=== PATIENT | male | born 1980 | race Caucasian/White ===

== ENCOUNTER 2016-06-25 19:05 | Emergency (ER) | payer OTHER ==
[2016-06-25] MEDS ORDERED: Ondansetron 4 MG/2 ML SDV IVPUSH ONE (19:26)
[2016-06-25] MEDS ORDERED: HYDROmorphone 1 MG/ML Syringe IVPUSH ONE (19:26)
[2016-06-25] MEDS ORDERED: Sodium Chloride 0.9% 1,000 ML IV ONE (19:26)
[2016-06-25] MEDS ORDERED: Ketorolac 30 MG/ML SDV IVPUSH ONE (19:27)
[2016-06-25] MEDS ORDERED: Tamsulosin 0.4 MG Cap.ER PO ONE (21:17)
[2016-06-25] MEDS ORDERED: Take Home: Acetaminophen/HYDROcodone 325-10 MG, 5 Tab Pack PO ONE (21:18)
[2016-06-25 22:09] VITALS: BP 148/82
--- NOTE | 2016-06-26 08:20 | ER ---
Date of Service: 06/25/2016 SUBJECTIVE: Shai presents to the emergency room with complaints of left- sided abdominal pain. The patient has a history of recurrent kidney stones and states that this discomfort is similar to what he has experienced in the past. He states that he has been experiencing the discomfort intermittently for approximately the past 4 days. He states that his last CT scan was performed in April and he states that he did have kidney stones in both kidneys at that time. PAST MEDICAL HISTORY: 1. Kidney stones. 2. Hypertension. MEDICATIONS: Hydrochlorothiazide 25 mg daily. ALLERGIES: NKDA. REVIEW OF SYSTEMS: General: No fever or chills. No blood in the urine. Respiratory: No shortness of breath. Cardiac: Denies any substernal chest pain. Gastrointestinal: Positive for again a left-sided abdominal pain. PHYSICAL EXAMINATION: General: This is a 35-year-old male patient, in no acute distress. VITAL SIGNS: Initial vitals; blood pressure 160/88, initial respiratory rate was 16, pulse rate was 95, temperature is 36.6, and O2 saturations 97%. Skin: Warm, pink, and dry. HEENT: Head is normocephalic, atraumatic. Mouth, oral mucosa is moist. No erythema or exudate noted in the hypopharynx. Neck: Supple. No masses. There is no lymphadenopathy. Lungs: Clear to auscultation. Heart: Regular rate and rhythm. Normal S1, S2. No S3, S4, murmurs, clicks, rubs. Abdomen: Soft, nontender. There is no hepatosplenomegaly noted. There are no masses noted. He has no CVA tenderness. LABORATORY DATA: WBCs 10.9, hemoglobin is 15.8, and platelets are 195. Basic metabolic panel was obtained and was all noted to be within normal limits with the exception of a mildly elevated creatinine at 1.5. Specific gravity is 1.020, negative for protein, glucose, and ketones, he has does have a trace of occult blood, negative for nitrites, bilirubin, and leukocyte esterase, he did have a trace of occult blood, and no bacteria were seen. Had 0 to 5 rbc's, 0 to 5 wbc's on the micro. CT scan of the patient's abdomen and pelvis was obtained. It did have evidence of an approximately 4-mm stone in the left UVJ. There were also several small stones proximal to this in the kidney and in the ureter. EMERGENCY ROOM COURSE: IV access was established. The patient was given a liter of normal saline. He was given Dilaudid 1 mg IV, Toradol 30 mg IV, Zofran 4 mg IV, and Flomax 0.4 mg IV. He remained stable under my care in the emergency room. ASSESSMENT: Left-sided kidney stone. PLAN: Strain the urine. Collect any stones to bring back to the clinic for analysis. [place] 10/325 with instructions to take 1 every 4 to 6 hours as needed for pain. He was also given a course here in the emergency room as well. I would like him to follow up with his primary care provider. MWK: 06/26/2016 04:20:30 MODL: 06/26/2016 05:09:17 /[id number]
== END 2016-06-25 21:25 | disposition home or self-care (01) ==
LOC: VM.ED 19:05
DX: N13.2 Hydronephrosis with renal and ureteral calculous obstruction (principal); I10 Essential (primary) hypertension; Z87.442 Personal history of urinary calculi; Z79.899 Other long term (current) drug therapy
CPT/HCPCS: 36415; 74176; 80048; 81001; 85025; 96361; 96374; 96375; 99284; A9270; J1170; J1885; J2405; J7030

== ENCOUNTER 2016-10-06 22:15 | Emergency (ER) | payer OTHER ==
--- NOTE | 2016-10-06 22:50 | EDM.PDOC ---
ED HPI GENERAL MEDICAL PROBLEM - General Chief Complaint: General Stated Complaint: hypertension, feels like "crap" Time Seen by Provider: 10/06/16 22:21 Source of Information: Reports: Patient History Limitations: Reports: No Limitations - History of Present Illness INITIAL COMMENTS - FREE TEXT/NARRATIVE: Patient states he doesn't feel well, and hasn't for several weeks. Reports chronic history of bilateral kidney stones, is on HCTZ to help prevent their formation. Has high blood pressure, was seen by Dr. Nava at [facility] today. CBC, CMP, Sed Rate, TSH ordered and all labs were within normal values on examination of his mychart. He does have hypertension here. It has come down to 130's systolic over 90's diastolic. He complains of some neck pain as well. Onset: Gradual Duration: Intermittent Severity: Mild Improves with: Reports: None Worsens with: Reports: None Associated Symptoms: Reports: Other (diarrhea) - Related Data Allergies Allergy/AdvReac Type Severity Reaction Status Date / Time No Known Allergies Allergy Verified 06/25/16 19:23 Home Meds: Home Meds Hydrochlorothiazide 25 mg PO DAILY 04/16/15 [History] Past Medical History HEENT History: Reports: Sinusitis Cardiovascular History: Reports: Hypertension Genitourinary History: Reports: Hydronephrosis, Renal Calculus Social & Family History - Tobacco Use Smoking Status *Q: Never Smoker Second Hand Smoke Exposure: No - Alcohol Use Days Per Week of Alcohol Use: 0 - Recreational Drug Use Recreational Drug Use: No ED ROS GENERAL - Review of Systems Review Of Systems: See Below Constitutional: Reports: No Symptoms, Malaise HEENT: Reports: No Symptoms Respiratory: Reports: No Symptoms Cardiovascular: Reports: No Symptoms Endocrine: Reports: No Symptoms : Reports: No Symptoms Musculoskeletal: Reports: Neck Pain Skin: Reports: No Symptoms Neurological: Reports: No Symptoms Psychiatric: Reports: No Symptoms Hematologic/Lymphatic: Reports: No Symptoms Immunologic: Reports: No Symptoms ED EXAM, GENERAL - Physical Exam Exam: See Below Exam Limited By: No Limitations General Appearance: Alert, WD/WN, No Apparent Distress Eye Exam: Bilateral Eye: EOMI, PERRL Ears: Normal TMs Head: Atraumatic, Normocephalic Neck: Normal Inspection, Supple, Full Range of Motion, Lymphadenopathy (L), Lymphadenopathy (R), Tender Lateral Respiratory/Chest: No Respiratory Distress, Lungs Clear, Normal Breath Sounds, No Accessory Muscle Use, Chest Non-Tender Cardiovascular: Normal Peripheral Pulses, Regular Rate, Rhythm, No Edema Peripheral Pulses: 2+: Posterior Tibial (L), Posterior Tibial (R), Dorsalis Pedis (L), Dorsalis Pedis (R) GI/Abdominal: Normal Bowel Sounds, Soft, Non-Tender, No Organomegaly Back Exam: Normal Inspection, Full Range of Motion Extremities: Normal Inspection, Normal Range of Motion, Non-Tender, No Pedal Edema, Normal Capillary Refill Neurological: Alert, Oriented, CN II-XII Intact, Normal Cognition, Normal Gait, Normal Reflexes, No Motor/Sensory Deficits Psychiatric: Normal Affect, Normal Mood Skin Exam: Warm, Dry, Intact, Normal Color Course - Orders/Labs/Meds Orders: Active Orders 24 hr Category Date Time Status C DIFFICILE TOXIN BY PCR [MREF] Stat Lab 10/06/16 22:32 Uncollected OVA & PARASITES Routine Lab 10/06/16 22:32 Uncollected UA W/MICROSCOPIC [URIN] Stat Lab 10/06/16 22:32 Uncollected Isolation [COMM] Routine Oth 10/06/16 22:32 Ordered Departure - Departure Time of Disposition: 23:52 Disposition: Home, Self-Care 01 Condition: Good Clinical Impression: History of calculus of kidney, Hypertension - Discharge Information Instructions: Hypertension, [id number] Additional Instructions: You should follow up with Dr. Nava regarding your diarrhea and high blood pressure. A contrasted CT may show any adrenal irregularities that may also cause the hypertension. You should also rule out aldosteronism, kidney disease, etc. Continue taking your prescribed medications. Please call us with any questions or concerns. - Problem List & Annotations (1) History of calculus of kidney SNOMED Code(s): 646320993 Code(s): Z87.442 - PERSONAL HISTORY OF URINARY CALCULI Status: Acute Priority: Low Current Visit: Yes (2) Hypertension SNOMED Code(s): 61861488 Code(s): I10 - ESSENTIAL (PRIMARY) HYPERTENSION Status: Acute Priority: Low Current Visit: Yes Qualifiers: Hypertension type: unspecified secondary hypertension Qualified Code(s): I15.9 - Secondary hypertension, unspecified; I15 - Secondary hypertension - Problem List Review Problem List Initiated/Reviewed/Updated: Yes - My Orders Last 24 Hours: My Active Orders 10/06/16 22:32 C DIFFICILE TOXIN BY PCR [MREF] Stat OVA & PARASITES Routine UA W/MICROSCOPIC [URIN] Stat Isolation [COMM] Routine - Assessment/Plan Last 24 Hours: My Active Orders 10/06/16 22:32 C DIFFICILE TOXIN BY PCR [MREF] Stat OVA & PARASITES Routine UA W/MICROSCOPIC [URIN] Stat Isolation [COMM] Routine Assessment:: secondary htn Plan: You should follow up with Dr. Nava regarding your diarrhea and high blood pressure. A contrasted CT may show any adrenal irregularities that may also cause the hypertension. You should also rule out aldosteronism, kidney disease, etc. Continue taking your prescribed medications. Please call us with any questions or concerns.
[2016-10-06] MEDS ORDERED: Take Home: Naproxen 500 MG Tab, 4 Tab Pack PO ONE (23:51)
[2016-10-06] MEDS ORDERED: Take Home: Acetaminophen/HYDROcodone 325-10 MG, 5 Tab Pack PO ONE (23:51)
[2016-10-07 20:55] VITALS: BP 141/100
== END 2016-10-07 00:21 | disposition home or self-care (01) ==
LOC: VM.ED 22:15
DX: I10 Essential (primary) hypertension (principal); Z87.442 Personal history of urinary calculi
CPT/HCPCS: 81001; 99283; A9270-GY

== ENCOUNTER 2017-04-15 16:06 | Emergency (ER) | payer OTHER ==
[2017-04-15 16:17] VITALS: BP 143/103
[2017-04-15] MEDS ORDERED: HYDROmorphone 1 MG/ML Syringe IVPUSH ONE (16:51)
[2017-04-15] MEDS ORDERED: Sodium Chloride 0.9% 1,000 ML IV ONE (17:05)
--- NOTE | 2017-04-15 17:05 | EDM.PDOC ---
ED HPI GENERAL MEDICAL PROBLEM - General Chief Complaint: Genitourinary Problem Stated Complaint: kidney stone Time Seen by Provider: 04/15/17 16:18 Source of Information: Reports: Patient, Family - History of Present Illness INITIAL COMMENTS - FREE TEXT/NARRATIVE: The patient has had multiple calcium oxalate stones in the past. He also has had them extracted. She did come in today with a ureteric colic on the left. He has CVA tenderness. No pain about the groin. I did do a CAT scan and showed that the stone was about 4 mm and about mid ureter. He also has some hydronephrosis. He also has stones that will eventually come down on the left and the right. He has 2 stones on the left in the ureter. He also has a duplicating IVC and I did give him information about that. The patient was not aware of it. His urine did show some blood. I did give the patient 1 mg of Dilaudid IV and that did help with his pain otherwise his pain was 8-9 out of 10. 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 I did tell him that he does need to try to avoid the Brown pops as far as he calcium oxalate. He will continue to try to pass his stones on his own and he will share his information with his urologist when it's timely. He does not have a history of hypertension however he does have hypertension today. He does need to see someone regarding this in the future. Patient also has Flomax at home and I encouraged him to use that as well. Onset: Today Location: Reports: Other (CVA tenderness on the left) Quality: Reports: Same as Previous Episode, Sharp Severity: Severe Improves with: Reports: None Worsens with: Reports: None Associated Symptoms: Reports: Loss of Appetite Left Flank Pain Score (Numeric/FACES): 6 - Related Data Allergies Allergy/AdvReac Type Severity Reaction Status Date / Time No Known Allergies Allergy Verified 04/15/17 16:12 Home Meds: Home Meds Hydrocodone/Acetaminophen [[place] 5-325] 1 - 2 tab PO Q4H PRN #20 tablet [Rx] Past Medical History HEENT History: Reports: Sinusitis Cardiovascular History: Reports: Hypertension Genitourinary History: Reports: Hydronephrosis, Renal Calculus Social & Family History - Tobacco Use Smoking Status *Q: Never Smoker Used Tobacco, but Quit: Yes Month Tobacco Last Used: unsure Second Hand Smoke Exposure: No - Alcohol Use Days Per Week of Alcohol Use: 0 - Recreational Drug Use Recreational Drug Use: No ED ROS GENERAL - Review of Systems Review Of Systems: ROS reveals no pertinent complaints other than HPI. ED EXAM, RENAL/ - Physical Exam Exam: See Below Exam Limited By: No Limitations General Appearance: Alert, Moderate Distress, Severe Distress Respiratory/Chest: No Respiratory Distress, Lungs Clear, Normal Breath Sounds, No Accessory Muscle Use, Chest Non-Tender Cardiovascular: Normal Peripheral Pulses, Regular Rate, Rhythm, No Edema, No Gallop, No JVD, No Murmur, No Rub GI/Abdominal: Other (CVA tenderness on the left.) Neurological: Alert, Oriented Course - Vital Signs Last Recorded V/S: Last Vital Signs Temp 36.6 C 04/15/17 16:14 Pulse 77 04/15/17 16:14 Resp 16 04/15/17 16:14 BP 143/103 H 04/15/17 16:14 Pulse Ox 97 04/15/17 16:14 - Orders/Labs/Meds Orders: Active Orders 24 hr Category Date Time Status Abdomen Pelvis wo Cont [CT] Stat Exams 04/15/17 16:33 Taken Labs: Laboratory Tests 04/15/17 Range/Units 16:23 Urine Color Yellow (YELLOW) Urine Appearance Clear (CLEAR) Urine pH 5.5 (5.0-8.0) Ur Specific [place] 1.015 Urine Protein Negative (NEGATIVE) mg/dL Urine Glucose (UA) Negative (NEGATIVE) mg/dL Urine Ketones Negative (NEGATIVE) mg/dL Urine Occult Blood Small H (NEGATIVE) Urine Nitrite Negative (NEGATIVE) Urine Bilirubin Negative (NEGATIVE) Urine Urobilinogen 0.2 (0.2) EU/dL Ur Leukocyte Esterase Negative (NEGATIVE) Meds: Medications Discontinued Medications Generic Name Dose Route Start Last Admin Trade Name Freq PRN Reason Stop Dose Admin Hydrocodone Bitart/Acetaminophen 1 packet 04/15/17 17:28 04/15/17 17:45 Take Home: Acetam/Hydrocodon 325-5 Mg, 5 Pack PO 04/15/17 17:29 1 packet ONETIME ONE Administration Hydromorphone HCl 1 mg 04/15/17 16:51 04/15/17 17:07 Dilaudid IVPUSH 04/15/17 16:52 1 mg ONETIME ONE Administration Sodium Chloride 1,000 mls @ 999 mls/hr 04/15/17 17:05 04/15/17 17:07 Normal Saline IV 04/15/17 18:05 999 mls/hr .BOLUS ONE Administration Departure - Departure Time of Disposition: 17:24 Disposition: Home, Self-Care 01 Condition: Good Clinical Impression: Hydronephrosis, Ureteric colic, History of calculus of kidney - Discharge Information Prescriptions: Hydrocodone/Acetaminophen [[place] 5-325] 1 - 2 tab PO Q4H PRN #20 tablet PRN Reason: Pain Instructions: Acetaminophen; Hydrocodone tablets or capsules, Kidney Stones, [id number] Referrals: Familia Bourgeois MD [ED Physician] - PCP,None [Primary Care Provider] - Forms: ED Department Discharge Additional Instructions: Avoid brown pops. Drink plenty of water. Strain urine for stones if desired. CT scan done. - My Orders Last 24 Hours: My Active Orders 04/15/17 16:33 Abdomen Pelvis wo Cont [CT] Stat - Assessment/Plan Last 24 Hours: My Active Orders 04/15/17 16:33 Abdomen Pelvis wo Cont [CT] Stat
[2017-04-15] MEDS ORDERED: Take Home: Acetaminophen/HYDROcodone 325-5 MG, 5 Tab Pack PO ONE (17:28)
== END 2017-04-15 17:52 | disposition home or self-care (01) ==
LOC: VM.ED 16:06
DX: N13.2 Hydronephrosis with renal and ureteral calculous obstruction (principal); I10 Essential (primary) hypertension; Z87.891 Personal history of nicotine dependence
CPT/HCPCS: 74176; 81003; 96361; 96374; 99284; A9270; J1170; J7030

== ENCOUNTER 2017-04-16 03:47 | Emergency (ER) | payer OTHER ==
[2017-04-16 03:53] VITALS: BP 153/74
[2017-04-16] MEDS ORDERED: Take Home: Acetaminophen/oxyCODONE 325-5 MG, 5 Tab Pack PO ONE (04:04)
[2017-04-16] MEDS ORDERED: Take Home: Ondansetron 4 MG Tab.DIS, 2 Tab Pack PO ONE (04:04)
--- NOTE | 2017-04-16 04:06 | EDM.PDOC ---
ED HPI GENERAL MEDICAL PROBLEM - General Chief Complaint: Genitourinary Problem Stated Complaint: left sided flank pain Time Seen by Provider: 04/16/17 03:55 Source of Information: Reports: Patient History Limitations: Reports: No Limitations - History of Present Illness INITIAL COMMENTS - FREE TEXT/NARRATIVE: Prior to the patient earlier this evening. The patient states that he had a difficult time sleeping. He has not been eating very much he did take the hydrocodone that he did throw it up. He does have small children at home. He does not want to wake his . I will have him try Percocet and also Zofran and he can decide which combination he prefers. He will keep one of the prescriptions and he will shredded the other. I will have any reason to believe that he would not be compliant. At any rate the patient will be contacting his urologist in the morning. He states that he has not had much urine. He did take 1 Flomax and I did encourage him to take another. He does have 2 stones coming down the ureter and they are mildly approaching the uric vesicle junction. He does appear to be more uncomfortable. I did offer him a shot of Dilaudid and IV fluids and then he could have his pick him up in a couple of hours when she wakes up but he did decline and ultimately decided that he would take the medication and go home and try a different regiment. I agreed to the same. He still has the left CVA tenderness none on the right no fever or chills and he is in quite a bit of discomfort that he is constantly moving. Onset: Today Left Flank Pain Score (Numeric/FACES): 6 - Related Data Allergies Allergy/AdvReac Type Severity Reaction Status Date / Time No Known Allergies Allergy Verified 04/16/17 03:53 Home Meds: Home Meds Hydrocodone/Acetaminophen [[place] 5-325] 1 - 2 tab PO Q4H PRN #20 tablet [Rx] Azithromycin [IJP: Azithromycin] 250 mg PO DAILY 04/16/17 [History] Past Medical History HEENT History: Reports: Sinusitis Cardiovascular History: Reports: Hypertension Genitourinary History: Reports: Hydronephrosis, Renal Calculus Social & Family History - Tobacco Use Smoking Status *Q: Never Smoker Used Tobacco, but Quit: Yes Month Tobacco Last Used: unsure Second Hand Smoke Exposure: No - Alcohol Use Days Per Week of Alcohol Use: 0 - Recreational Drug Use Recreational Drug Use: No ED ROS GENERAL - Review of Systems Review Of Systems: ROS reveals no pertinent complaints other than HPI. ED EXAM, RENAL/ - Physical Exam Exam: See Below Exam Limited By: No Limitations General Appearance: Moderate Distress, Severe Distress GI/Abdominal: Other (I did examine him earlier today. He still has a left CVA tenderness and he is difficult to sit down and stay in one position. No other pain reported.) Course - Vital Signs Last Recorded V/S: Last Vital Signs Temp 35.9 C 04/16/17 03:49 Pulse 74 04/16/17 03:49 Resp 20 04/16/17 03:49 BP 153/74 H 04/16/17 03:49 Pulse Ox 95 04/16/17 03:49 - Orders/Labs/Meds Meds: Medications Discontinued Medications Generic Name Dose Route Start Last Admin Trade Name Gokulq PRN Reason Stop Dose Admin Ondansetron HCl 2 packet 04/16/17 04:04 04/16/17 04:08 Take Home: Ondansetron Odt 4 Mg, 2 Tab Pack PO 04/16/17 04:05 2 packet ONETIME ONE Administration Oxycodone/Acetaminophen 1 packet 04/16/17 04:04 04/16/17 04:08 Take Home: Acetamin/Oxycodon 325-5 Mg, 5 Pack PO 04/16/17 04:05 1 packet ONETIME ONE Administration Departure - Departure Time of Disposition: 04:15 Disposition: Home, Self-Care 01 Condition: Good Clinical Impression: History of calculus of kidney, Ureteric colic - Discharge Information Referrals: PCP,Unobtain [Primary Care Provider] - Forms: ED Department Discharge
== END 2017-04-16 04:15 | disposition home or self-care (01) ==
LOC: VM.ED 03:47
DX: N23 Unspecified renal colic (principal); I10 Essential (primary) hypertension; Z87.442 Personal history of urinary calculi
CPT/HCPCS: 99283; A9270

== ENCOUNTER 2017-08-19 17:15 | Emergency (ER) | payer OTHER ==
[2017-08-19] MEDS ORDERED: Sodium Chloride 0.9% 10 ML Syringe FLUSH PRN (17:20)
[2017-08-19] MEDS: Lactated Ringers 1,000 ML IV ONE (17:30)
[2017-08-19] MEDS: Ketorolac 15 MG/ML SDV IVPUSH ONE ×2 (17:33→17:43)
[2017-08-19] MEDS: Ondansetron 4 MG/2 ML SDV IVPUSH ONE (17:36)
--- NOTE | 2017-08-19 17:37 | EDM.PDOC ---
ED HPI GENERAL MEDICAL PROBLEM - General Chief Complaint: Flank Pain Time Seen by Provider: 08/19/17 17:20 Source of Information: Reports: Patient History Limitations: Reports: No Limitations - History of Present Illness INITIAL COMMENTS - FREE TEXT/NARRATIVE: Patient comes in to the emergency department today after having a 2 day history lower back pain. Patient has a long history of kidney stones. He states he's had greater than 100 kidney stones that he has passed in his lifetime. He is currently a patient of nephrology and urology is on hydrochlorothiazide for reduction and stones. He has also had multiple procedures in the past to help remove the stones. He states he gets them a few times a year and comes into the emergency department for pain control. He normally can pass them on his own. He comes in today hoping to get pain relief from the stones he feels he has. Patient does not normally drink a lot in the day he is an active joy. He is not sure if he has any urgency, hesitancy, or any blood in his urine. Denies any fever, chills, nausea, or vomiting. Can not think of any factors that make it worse or better. Onset: Sudden Left Flank Pain Score (Numeric/FACES): 5 - Related Data Allergies Allergy/AdvReac Type Severity Reaction Status Date / Time No Known Allergies Allergy Verified 08/19/17 17:26 Home Meds: Home Meds Hydrocodone/Acetaminophen [[place] 5-325] 1 - 2 tab PO Q4H PRN #20 tablet [Rx] Azithromycin [IJP: Azithromycin] 250 mg PO DAILY 04/16/17 [History] Ciprofloxacin HCl [Cipro] 500 mg PO BID 7 Days #14 tablet 08/19/17 [Rx] Hydrochlorothiazide 25 mg PO DAILY 08/19/17 [History] Hydrocodone/Acetaminophen [Hydrocodon-Acetaminophen 5-325] 1 each PO QID PRN 2 Days #10 tablet 08/19/17 [Rx] Past Medical History HEENT History: Reports: Sinusitis Cardiovascular History: Reports: Hypertension Genitourinary History: Reports: Hydronephrosis, Renal Calculus Social & Family History - Tobacco Use Smoking Status *Q: Never Smoker - Recreational Drug Use Recreational Drug Use: No ED ROS GENERAL - Review of Systems Review Of Systems: See Below Constitutional: Reports: No Symptoms HEENT: Reports: No Symptoms Respiratory: Reports: No Symptoms Cardiovascular: Reports: No Symptoms GI/Abdominal: Reports: No Symptoms : Reports: No Symptoms Musculoskeletal: Reports: No Symptoms Skin: Reports: No Symptoms Neurological: Reports: No Symptoms Psychiatric: Reports: No Symptoms Hematologic/Lymphatic: Reports: No Symptoms Immunologic: Reports: No Symptoms ED EXAM, RENAL/ - Physical Exam Exam: See Below Exam Limited By: No Limitations General Appearance: Alert, WD/WN, No Apparent Distress Neck: Normal Inspection, Supple, Non-Tender, Full Range of Motion Respiratory/Chest: No Respiratory Distress, Lungs Clear, No Accessory Muscle Use Cardiovascular: Normal Peripheral Pulses, Regular Rate, Rhythm GI/Abdominal: Normal Bowel Sounds, Soft, Non-Tender Extremities: Normal Inspection, Normal Range of Motion, Non-Tender, Normal Capillary Refill Neurological: Alert, Oriented Skin Exam: Warm, Dry, Intact, Normal Color Course - Vital Signs Last Recorded V/S: Last Vital Signs Temp 36.3 C 08/19/17 17:20 Pulse 73 08/19/17 17:20 Resp 18 08/19/17 17:20 BP 151/101 H 08/19/17 17:20 Pulse Ox 98 08/19/17 17:20 - Orders/Labs/Meds Orders: Active Orders 24 hr Category Date Time Status Abdomen Pelvis wo Cont [CT] Stat Exams 08/19/17 17:20 Ordered UA W/MICROSCOPIC [URIN] Stat Lab 08/19/17 17:36 Ordered Sodium Chloride 0.9% [Saline Flush] Med 08/19/17 17:20 Active 10 ml FLUSH ASDIRECTED PRN Peripheral IV Insertion Adult [OM.PC] Stat Oth 08/19/17 17:20 Ordered Medication Orders Sodium Chloride (Saline Flush) 10 ml FLUSH ASDIRECTED PRN PRN Reason: Keep Vein Open Labs: Laboratory Tests 08/19/17 08/19/17 08/19/17 Range/Units 17:36 17:47 17:47 WBC 6.8 (4.0-10.0) x10^3/uL RBC 4.98 (4.5-6.0) x10^6/uL Hgb 16.6 (14.0-18.0) g/dL Hct 46.7 (40.0-52.0) % MCV 93.8 H (78.0-93.0) fL MCH 33.3 H (26.0-32.0) pg MCHC 35.5 (32.0-36.0) g/dL RDW Coeff of Ever 13.0 (10.0-15.0) % Plt Count 187 (130-400) x10^3/uL Neut % (Auto) 59.0 (50.0-80.0) % Lymph % (Auto) 29.3 (25.0-50.0) % [place] % (Auto) 7.6 (2.0-11.0) % Eos % (Auto) 3.5 (0.0-4.0) % Baso % (Auto) 0.6 (0.2-1.2) % Sodium 138 (136-145) mmol/L Potassium 4.0 (3.5-5.1) mmol/L Chloride 102 (98-107) mmol/L Carbon Dioxide 27 (21-32) mmol/L Anion Gap 13.0 (10-20) mmol/L BUN 16 (7-18) mg/dL Creatinine 1.1 (0.70-1.30) mg/dL Est Cr Clr Drug Dosing TNP Estimated GFR (MDRD) > 60 Glucose 89 (74-106) mg/dL Calcium 9.0 (8.5-10.1) mg/dL Corrected Calcium 8.68 (8.5-10.1) mg/dL Total Bilirubin 0.6 (0.2-1.0) mg/dL AST 36 (15-37) U/L ALT 74 H (16-63) U/L Alkaline Phosphatase 48 (46-116) U/L Total Protein 7.9 (6.4-8.2) g/dL Albumin 4.4 (3.4-5.0) g/dL Globulin 3.5 Albumin/Globulin Ratio 1.26 Urine Color Yellow (YELLOW) Urine Appearance Clear (CLEAR) Urine pH 6.0 (5.0-8.0) Ur Specific [place] 1.015 Urine Protein Trace H (NEGATIVE) mg/dL Urine Glucose (UA) Negative (NEGATIVE) mg/dL Urine Ketones Negative (NEGATIVE) mg/dL Urine Occult Blood Moderate H (NEGATIVE) Urine Nitrite Negative (NEGATIVE) Urine Bilirubin Negative (NEGATIVE) Urine Urobilinogen 0.2 (0.2) EU/dL Ur Leukocyte Esterase Negative (NEGATIVE) Urine RBC 10-20 H (NOT SEEN) /HPF Urine WBC 0-5 (NOT SEEN) /HPF Ur Squamous Epith Cells Rare (NEGATIVE) /HPF Urine Bacteria Few H (NEGATIVE) /HPF Urine Mucus Few H (NEGATIVE) /LPF Meds: Medications Generic Name Dose Route Start Last Admin Trade Name Gokulq PRN Reason Stop Dose Admin Sodium Chloride 10 ml 08/19/17 17:20 Saline Flush FLUSH ASDIRECTED PRN Keep Vein Open Discontinued Medications Generic Name Dose Route Start Last Admin Trade Name Perico PRN Reason Stop Dose Admin Hydrocodone Bitart/Acetaminophen 1 packet 08/19/17 18:32 Take Home: Acetam/Hydrocodon 325-5 Mg, 5 Pack PO 08/19/17 18:33 ONETIME ONE Ciprofloxacin 500 mg 08/19/17 18:38 Ciprofloxacin Hcl PO 08/19/17 18:39 ONETIME ONE Lactated Ringer's 1,000 mls @ 1,000 mls/hr 08/19/17 17:35 08/19/17 17:30 Ringers, Lactated IV 08/19/17 18:34 1,000 mls/hr .BOLUS ONE Administration Ketorolac Tromethamine 15 mg 08/19/17 17:20 08/19/17 17:33 Toradol IVPUSH 08/19/17 17:21 15 mg ONETIME ONE Administration Ketorolac Tromethamine 15 mg 08/19/17 17:37 08/19/17 17:43 Toradol IVPUSH 08/19/17 17:38 15 mg ONETIME ONE Administration Ondansetron HCl 4 mg 08/19/17 17:20 08/19/17 17:36 Zofran IVPUSH 08/19/17 17:21 4 mg ONETIME ONE Administration - Re-Assessments/Exams Free Text/Narrative Re-Assessment/Exam: 08/19/17 18:52 pain is reduced. Pt is resting currently. Would like to be discharged. VSS. Departure - Departure Time of Disposition: 19:55 Disposition: Home, Self-Care 01 Condition: Good Clinical Impression: UTI, Urinary tract infectious disease, Hydroureteronephrosis, Kidney stone - Discharge Information Prescriptions: Ciprofloxacin HCl [Cipro] 500 mg PO BID 7 Days #14 tablet Hydrocodone/Acetaminophen [Hydrocodon-Acetaminophen 5-325] 1 each PO QID PRN 2 Days #10 tablet PRN Reason: Pain (Severe 7-10) Instructions: Hydrocodone; Ibuprofen tablets, Kidney Stones, [id number], Ciprofloxacin tablets Referrals: Familia Bourgeois MD [Primary Care Provider] - Forms: ED Department Discharge Additional Instructions: 1. rest 2. increase water intake to at least 2-3 liters per day 3. Decrease foot in fat protein and sodium if possible 4. Excess intake of oxalate-rich products should be avoided to prevent oxalate load (fruits, wheat, and bran) 5. Follow up with specialist if not feeling better within 2 weeks 6. Return if pain progress or fevers elevate and do not dissipate with ibuprofen and Tylenol - My Orders Last 24 Hours: My Active Orders 08/19/17 17:20 Abdomen Pelvis wo Cont [CT] Stat Sodium Chloride 0.9% [Saline Flush] 10 ml FLUSH ASDIRECTED PRN Peripheral IV Insertion Adult [OM.PC] Stat 08/19/17 17:36 UA W/MICROSCOPIC [URIN] Stat - Assessment/Plan Last 24 Hours: My Active Orders 08/19/17 17:20 Abdomen Pelvis wo Cont [CT] Stat Sodium Chloride 0.9% [Saline Flush] 10 ml FLUSH ASDIRECTED PRN Peripheral IV Insertion Adult [OM.PC] Stat 08/19/17 17:36 UA W/MICROSCOPIC [URIN] Stat Assessment:: 1. flank pain Plan: 1. IV hydration 2. Toradol given for pain 3. Antiemetic to prevent nausea 4. CT of abdomen completed 5. UA/UC completed in ER 6. Pt given first dose of Ciprofloxacin. Pt has a significant history with urology and kidney stones will treat him as a complicated history and give him the full course 7 day treatment unless sensitivity comes back needing to switch medications 7. He should also sent home with pain medications to help for the next 48 hours 8. Advised to use Tylenol and ibuprofen as much as possible and reserved the controlled substances only for severe pain 9. Education given to the patient regarding diet and exercise 10. She also given information regarding ways to help reduce his risk of kidney stones 11. She is instructed to follow up with his primary care provider if symptoms continue or do not resolve
[2017-08-19 18:14] LABS: CHLORIDE,CL 102 mmol/L (98-107); SODIUM,NA 138 mmol/L (136-145)
[2017-08-19] MEDS: Take Home: Acetaminophen/HYDROcodone 325-5 MG, 5 Tab Pack PO ONE (18:52)
[2017-08-19] MEDS: Ciprofloxacin 500 MG Tab PO ONE (18:52)
[2017-08-19 19:03] VITALS: BP 148/99
== END 2017-08-19 18:57 | disposition home or self-care (01) ==
LOC: VM.ED 17:15
DX: N39.0 Urinary tract infection, site not specified (principal); N13.2 Hydronephrosis with renal and ureteral calculous obstruction; I10 Essential (primary) hypertension; Z87.442 Personal history of urinary calculi; Z79.899 Other long term (current) drug therapy
CPT/HCPCS: 36415; 74176; 80053; 81001; 85025; 96361; 96374; 96375; 99284; A9270-GY; J1885; J2405; J7120

== ENCOUNTER 2017-10-13 15:03 | Emergency (ER) | payer OTHER ==
[2017-10-13 15:31] VITALS: BP 142/94
--- NOTE | 2017-10-19 08:09 | EDM.PDOC ---
ED HPI GENERAL MEDICAL PROBLEM - General Chief Complaint: ENT Problem Stated Complaint: BLOODY NOSE Time Seen by Provider: 10/13/17 15:15 Source of Information: Reports: Patient History Limitations: Reports: No Limitations - History of Present Illness INITIAL COMMENTS - FREE TEXT/NARRATIVE: Pt. states that he sustained an injury to his R nare. He states that he was using a lens grinder rough and a small piece of metal was thrown into his R nare which has since come out. He complains of bleeding from his R nare. Denies any other trauma from the accident. He states that the area was bleeding briskly for several minutes. - Related Data Allergies Allergy/AdvReac Type Severity Reaction Status Date / Time No Known Allergies Allergy Verified 08/19/17 17:26 Home Meds: Home Meds hydroCHLOROthiazide [Hydrochlorothiazide] 25 mg DAILY 10/13/17 [History] Past Medical History HEENT History: Reports: Sinusitis Cardiovascular History: Reports: Hypertension Genitourinary History: Reports: Hydronephrosis, Renal Calculus Social & Family History - Tobacco Use Smoking Status *Q: Never Smoker - Recreational Drug Use Recreational Drug Use: No ED ROS ENT - Review of Systems Review Of Systems: See Below Constitutional: Reports: No Symptoms HEENT: Reports: Nosebleed Respiratory: Reports: No Symptoms Cardiovascular: Reports: No Symptoms GI/Abdominal: Reports: No Symptoms ED EXAM, ENT - Physical Exam Exam: See Below General Appearance: Alert, WD/WN, No Apparent Distress Nose: Dried Blood, Other (very small abrasion/puncture to the medial R nare) Course - Vital Signs Last Recorded V/S: Last Vital Signs Temp 36.4 C 10/13/17 15:03 Pulse 80 10/13/17 15:03 Resp 16 10/13/17 15:03 BP 142/94 H 10/13/17 15:03 Pulse Ox Departure - Departure Time of Disposition: 15:45 Disposition: Home, Self-Care 01 Clinical Impression: Nosebleed - Discharge Information Referrals: Familia Bourgeois MD [Primary Care Provider] - Forms: ED Department Discharge Additional Instructions: If bleeding redevelops, pinch nose for 30 min. and return to ER if it doesn't stop.
== END 2017-10-13 15:25 | disposition home or self-care (01) ==
LOC: VM.ED 15:03
DX: S01.23XA Puncture wound without foreign body of nose, initial encounter (principal); I10 Essential (primary) hypertension; W22.8XXA Striking against or struck by other objects, initial encounter
CPT/HCPCS: 99283

== ENCOUNTER 2017-11-29 16:45 | Emergency (ER) | payer OTHER ==
[2017-11-29] MEDS ORDERED: Sodium Chloride 0.9% 10 ML Syringe FLUSH PRN (17:07)
[2017-11-29] MEDS: Sodium Chloride 0.9% 1,000 ML IV ONE (17:20)
[2017-11-29] MEDS: Morphine 2 MG/ML Syringe IVPUSH ONE (17:21)
[2017-11-29] MEDS: Ondansetron 4 MG/2 ML SDV IVPUSH ONE (17:25)
[2017-11-29 17:32] LABS: CHLORIDE,CL 102 mmol/L (98-107); SODIUM,NA 140 mmol/L (136-145)
--- NOTE | 2017-11-29 17:32 | EDM.PDOC ---
ED HPI GENERAL MEDICAL PROBLEM - General Chief Complaint: Flank Pain Stated Complaint: Left Flank Pain Time Seen by Provider: 11/29/17 16:47 Source of Information: Reports: Patient, Old Records, RN, RN Notes Reviewed History Limitations: Reports: No Limitations - History of Present Illness INITIAL COMMENTS - FREE TEXT/NARRATIVE: Patient comes in to the emergency department today after having a 1 day history lower back/left flank pain. Patient has a long history of kidney stones. He states he's had greater than 100 kidney stones that he has passed in his lifetime. He is currently a patient of nephrology and urology is on hydrochlorothiazide for reduction and stones. He has also had multiple procedures in the past to help remove the stones. He states he gets them a few times a year and comes into the emergency department for pain control. He normally can pass them on his own. He comes in today hoping to get pain relief from the stones he feels he has. Patient does not normally drink a lot in the day he is an active joy. He is not sure if he has any urgency, hesitancy, or any blood in his urine. Denies any fever, chills, nausea, or vomiting. Can not think of any factors that make it worse or better. 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: Other (see below) (None) - Related Data Allergies Allergy/AdvReac Type Severity Reaction Status Date / Time No Known Allergies Allergy Verified 08/19/17 17:26 Home Meds: Home Meds hydroCHLOROthiazide [Hydrochlorothiazide] 25 mg DAILY 10/13/17 [History] Tamsulosin HCl [Flomax] 0.4 mg PO DAILY 7 Days #7 cap.er.24h 11/29/17 [Rx] Past Medical History HEENT History: Reports: Sinusitis Cardiovascular History: Reports: Hypertension Genitourinary History: Reports: Hydronephrosis, Renal Calculus ED ROS GENERAL - Review of Systems Review Of Systems: See Below Constitutional: Denies: Fever, Chills, Weakness Respiratory: Denies: Shortness of Breath, Cough Cardiovascular: Denies: Chest Pain, Palpitations GI/Abdominal: Reports: Nausea. Denies: Abdominal Pain, Diarrhea, Vomiting : Reports: Flank Pain (Left) Skin: Reports: No Symptoms Neurological: Reports: No Symptoms ED EXAM, RENAL/ - Physical Exam Exam: See Below Exam Limited By: No Limitations General Appearance: Alert, Mild Distress (2/2 pain) Respiratory/Chest: No Respiratory Distress, Lungs Clear, Normal Breath Sounds Cardiovascular: Normal Peripheral Pulses, Regular Rate, Rhythm GI/Abdominal: Normal Bowel Sounds, Soft, Non-Tender (Male) Exam: Deferred Back Exam: CVA Tenderness (L), Muscle Spasm Neurological: Alert, Oriented Skin Exam: Warm, Dry, Intact, Normal Color Course - Orders/Labs/Meds Orders: Active Orders 24 hr Category Date Time Status Abdomen Pelvis wo Cont [CT] Stat Exams 11/29/17 16:47 Taken UA W/MICROSCOPIC [URIN] Stat Lab 11/29/17 17:00 Ordered Sodium Chloride 0.9% [Saline Flush] Med 11/29/17 17:07 Active 10 ml FLUSH ASDIRECTED PRN Peripheral IV Insertion Adult [OM.PC] Routine Oth 11/29/17 17:07 Ordered Medication Orders Sodium Chloride (Saline Flush) 10 ml FLUSH ASDIRECTED PRN PRN Reason: Keep Vein Open Labs: Laboratory Tests 11/29/17 11/29/17 11/29/17 Range/Units 17:00 17:06 17:06 WBC 7.3 (4.0-10.0) x10^3/uL RBC 5.02 (4.5-6.0) x10^6/uL Hgb 17.0 (14.0-18.0) g/dL Hct 47.9 (40.0-52.0) % MCV 95.4 H (78.0-93.0) fL MCH 33.9 H (26.0-32.0) pg MCHC 35.5 (32.0-36.0) g/dL RDW Coeff of Ever 13.0 (10.0-15.0) % Plt Count 216 (130-400) x10^3/uL Neut % (Auto) 65.0 (50.0-80.0) % Lymph % (Auto) 27.0 (25.0-50.0) % [place] % (Auto) 6.6 (2.0-11.0) % Eos % (Auto) 1.1 (0.0-4.0) % Baso % (Auto) 0.3 (0.2-1.2) % Sodium 140 (136-145) mmol/L Potassium 3.8 (3.5-5.1) mmol/L Chloride 102 (98-107) mmol/L Carbon Dioxide 29 (21-32) mmol/L Anion Gap 12.8 (10-20) mmol/L BUN 20 H (7-18) mg/dL Creatinine 1.3 (0.70-1.30) mg/dL Est Cr Clr Drug Dosing TNP Estimated GFR (MDRD) > 60 Glucose 92 (74-106) mg/dL Calcium 9.5 (8.5-10.1) mg/dL Corrected Calcium 9.26 (8.5-10.1) mg/dL Total Bilirubin 0.6 (0.2-1.0) mg/dL AST 19 (15-37) U/L ALT 47 (16-63) U/L Alkaline Phosphatase 54 (46-116) U/L Total Protein 8.1 (6.4-8.2) g/dL Albumin 4.3 (3.4-5.0) g/dL Globulin 3.8 Albumin/Globulin Ratio 1.13 Urine Color Yellow (YELLOW) Urine Appearance Slightly cloudy H (CLEAR) Urine pH 6.0 (5.0-8.0) Ur Specific [place] 1.025 Urine Protein 30 H (NEGATIVE) mg/dL Urine Glucose (UA) Negative (NEGATIVE) mg/dL Urine Ketones Negative (NEGATIVE) mg/dL Urine Occult Blood Moderate H (NEGATIVE) Urine Nitrite Negative (NEGATIVE) Urine Bilirubin Negative (NEGATIVE) Urine Urobilinogen 0.2 (0.2) EU/dL Ur Leukocyte Esterase Negative (NEGATIVE) Urine RBC 30-40 H (NOT SEEN) /HPF Urine WBC 0-5 (NOT SEEN) /HPF Ur Squamous Epith Cells Rare (NEGATIVE) /HPF Ur Renal Epithelial Cell Rare H (NEGATIVE) /HPF Urine Bacteria Not seen (NEGATIVE) /HPF Hyaline Casts Rare H (NEGATIVE) /HPF Urine Mucus Not seen (NEGATIVE) /LPF Meds: Medications Generic Name Dose Route Start Last Admin Trade Name Freq PRN Reason Stop Dose Admin Sodium Chloride 10 ml 11/29/17 17:07 Saline Flush FLUSH ASDIRECTED PRN Keep Vein Open Discontinued Medications Generic Name Dose Route Start Last Admin Trade Name Perico PRN Reason Stop Dose Admin Hydromorphone HCl 2 mg 11/29/17 18:10 Dilaudid IVPUSH 11/29/17 18:11 ONETIME ONE Sodium Chloride 1,000 mls @ 999 mls/hr 11/29/17 17:08 11/29/17 17:20 Normal Saline IV 11/29/17 18:08 999 mls/hr ONETIME ONE Administration Morphine Sulfate 2 mg 11/29/17 17:08 11/29/17 17:21 Morphine IVPUSH 11/29/17 17:09 2 mg ONETIME ONE Administration Ondansetron HCl 4 mg 11/29/17 17:08 11/29/17 17:25 Zofran IVPUSH 11/29/17 17:09 4 mg ONETIME ONE Administration Departure - Departure Time of Disposition: 18:20 Disposition: Home, Self-Care 01 Condition: Good Clinical Impression: Renal calculus, left - Discharge Information *PRESCRIPTION DRUG MONITORING PROGRAM REVIEWED*: Not Applicable *COPY OF PRESCRIPTION DRUG MONITORING REPORT IN PATIENT CODY: Not Applicable Prescriptions: Tamsulosin HCl [Flomax] 0.4 mg PO DAILY 7 Days #7 cap.er.24h Instructions: Kidney Stones Referrals: Familia Bourgeois MD [Primary Care Provider] - Forms: ED Department Discharge Additional Instructions: 1. Stay very well hydrated and rest 2. LOTS of water 3. Take pain medication sparingly, use Tylenol and Advil as well 4. Take Flomax daily for [address] Garcia's office tomorrow to set up a follow up appointment ED Communication - ED Communication Date/Time Date: 11/29/17 Time Called: 18:19 - Discussed Case With (1) Discussed Case With (1): Outpatient Provider (Dr. Whitlock, Urology) - Conversation Summary Outpatient Provider Agreed to Follow-up on this Patient: Yes Patient Aware of Amendments fo Care Plan: Yes - Problem List Review Problem List Initiated/Reviewed/Updated: Yes - My Orders Last 24 Hours: My Active Orders 11/29/17 16:47 Abdomen Pelvis wo Cont [CT] Stat 11/29/17 17:00 UA W/MICROSCOPIC [URIN] Stat 11/29/17 17:07 Sodium Chloride 0.9% [Saline Flush] 10 ml FLUSH ASDIRECTED PRN Peripheral IV Insertion Adult [OM.PC] Routine - Assessment/Plan Last 24 Hours: My Active Orders 11/29/17 16:47 Abdomen Pelvis wo Cont [CT] Stat 11/29/17 17:00 UA W/MICROSCOPIC [URIN] Stat 11/29/17 17:07 Sodium Chloride 0.9% [Saline Flush] 10 ml FLUSH ASDIRECTED PRN Peripheral IV Insertion Adult [OM.PC] Routine Assessment:: Left Ureteral stone Left Hydronephrosis Left flank pain Plan: Case discussed with Dr. Whitlock, Urology. He recommended outpatient treatment. Will start Flomax and pain medication. Patient needs to follow up with PCP this week or next.
[2017-11-29 17:34] LABS: ANION GAP 12.8 mmol/L (10-20)
[2017-11-29] MEDS: HYDROmorphone 1 MG/ML Syringe IVPUSH ONE ×2 (18:19→19:25)
[2017-11-29] MEDS: Tamsulosin 0.4 MG Cap.ER PO ONE (18:24)
[2017-11-29] MEDS ORDERED: HYDROmorphone 1 MG/ML Syringe ONE (18:24)
[2017-11-29] MEDS: Take Home: Acetaminophen/HYDROcodone 325-5 MG, 5 Tab Pack PO ONE (18:25)
[2017-11-29 19:10] VITALS: BP 143/100
== END 2017-11-29 19:45 | disposition home or self-care (01) ==
LOC: VM.ED 16:45
DX: N13.2 Hydronephrosis with renal and ureteral calculous obstruction (principal); I10 Essential (primary) hypertension; Z79.899 Other long term (current) drug therapy
CPT/HCPCS: 36415; 74176; 80053; 81001; 85025; 96361; 96374; 96375; 96376; 99284; A9270; J1170; J2270; J2405; J7030

== ENCOUNTER 2017-11-30 02:14 | Emergency (ER) | payer OTHER ==
[2017-11-30] MEDS: Sodium Chloride 0.9% 1,000 ML IV ONE (02:25)
[2017-11-30] MEDS ORDERED: Sodium Chloride 0.9% 10 ML Syringe FLUSH PRN (02:26)
[2017-11-30] MEDS: Ondansetron 4 MG/2 ML SDV IVPUSH ONE (02:35)
[2017-11-30] MEDS: HYDROmorphone 1 MG/ML Syringe IVPUSH ONE ×2 (02:37→03:33)
--- NOTE | 2017-11-30 02:44 | EDM.PDOC ---
ED HPI GENERAL MEDICAL PROBLEM - General Chief Complaint: Genitourinary Problem Stated Complaint: Kidney stones Time Seen by Provider: 11/30/17 02:20 Source of Information: Reports: Patient History Limitations: Reports: No Limitations - History of Present Illness INITIAL COMMENTS - FREE TEXT/NARRATIVE: Pt. presents to ER with complaints of L sided flank pain. He was in the ER earlier this evening and was diagnosed a [id number] mid ureteral stone on the L side with moderate to severe hydronephrosis. Pt. was treated with IV narcotics and antiemetics. [facility] was consulted (Dr. Whitlock) who wanted the pt. to be discharged with oral pain meds and Flomax. Pt. was still experiencing some pain on discharge and continued to vomit, even though he had received IV zofran. Pt. states that the pain is continuous and he is unable to hold down any fluids or pain medication. Onset: Today Duration: Colic, Constant Location: Reports: Abdomen, Back Quality: Reports: Sharp Severity: Severe Associated Symptoms: Reports: Nausea/Vomiting Left flank/left upper abdomen Pain Score (Numeric/FACES): 6 - Related Data Allergies Allergy/AdvReac Type Severity Reaction Status Date / Time No Known Allergies Allergy Verified 11/30/17 02:15 Home Meds: Home Meds hydroCHLOROthiazide [Hydrochlorothiazide] 25 mg DAILY 10/13/17 [History] Tamsulosin HCl [Flomax] 0.4 mg PO DAILY 7 Days #7 cap.er.24h 11/29/17 [Rx] Past Medical History HEENT History: Reports: Sinusitis Cardiovascular History: Reports: Hypertension Genitourinary History: Reports: Hydronephrosis, Renal Calculus ED ROS GENERAL - Review of Systems Review Of Systems: See Below Constitutional: Reports: No Symptoms HEENT: Reports: No Symptoms Respiratory: Reports: No Symptoms Cardiovascular: Reports: No Symptoms Endocrine: Reports: No Symptoms GI/Abdominal: Reports: Nausea, Vomiting : Reports: Flank Pain, Pain, Other (see HPI) Musculoskeletal: Reports: No Symptoms Skin: Reports: No Symptoms ED EXAM, GENERAL - Physical Exam Exam: See Below Exam Limited By: No Limitations General Appearance: Alert, WD/WN, No Apparent Distress Throat/Mouth: Normal Inspection, Normal Lips, Normal Teeth, Normal Gums, Normal Oropharynx, Normal Voice, No Airway Compromise Respiratory/Chest: No Respiratory Distress, Lungs Clear, Normal Breath Sounds, No Accessory Muscle Use, Chest Non-Tender Cardiovascular: Normal Peripheral Pulses, Regular Rate, Rhythm, No Edema, No Gallop, No JVD, No Murmur, No Rub GI/Abdominal: Normal Bowel Sounds, Soft, Non-Tender, No Organomegaly, No Distention, No Abnormal Bruit, No Mass (Male) Exam: No Hernia, Normal Inspection, Normal Prostate, Circumcised Course - Vital Signs Last Recorded V/S: Last Vital Signs Temp 37.4 C 11/30/17 02:20 Pulse 73 11/30/17 02:20 Resp 16 11/30/17 02:20 BP 160/99 H 11/30/17 02:20 Pulse Ox - Orders/Labs/Meds Orders: Active Orders 24 hr Category Date Time Status Prochlorperazine [Compazine] Med 11/30/17 02:45 Once 5 mg IV ONETIME ONE Sodium Chloride 0.9% [Normal Saline] 1,000 ml Med 11/30/17 02:25 Active IV .BOLUS Sodium Chloride 0.9% [Saline Flush] Med 11/30/17 02:26 Active 10 ml FLUSH ASDIRECTED PRN Peripheral IV Insertion Adult [OM.PC] Routine Oth 11/30/17 02:26 Ordered Medication Orders Sodium Chloride (Normal Saline) 1,000 mls @ 1,000 mls/hr IV .BOLUS ONE Stop: 11/30/17 03:24 Last Admin: 11/30/17 02:25 Dose: 1,000 mls/hr Prochlorperazine Edisylate (Compazine) 5 mg IV ONETIME ONE Stop: 11/30/17 02:46 Sodium Chloride (Saline Flush) 10 ml FLUSH ASDIRECTED PRN PRN Reason: Keep Vein Open Meds: Medications Generic Name Dose Route Start Last Admin Trade Name Freq PRN Reason Stop Dose Admin Sodium Chloride 1,000 mls @ 1,000 mls/hr 11/30/17 02:25 11/30/17 02:25 Normal Saline IV 11/30/17 03:24 1,000 mls/hr .BOLUS ONE Administration Prochlorperazine Edisylate 5 mg 11/30/17 02:45 Compazine IV 11/30/17 02:46 ONETIME ONE Sodium Chloride 10 ml 11/30/17 02:26 Saline Flush FLUSH ASDIRECTED PRN Keep Vein Open Discontinued Medications Generic Name Dose Route Start Last Admin Trade Name Freq PRN Reason Stop Dose Admin Hydromorphone HCl 1 mg 11/30/17 02:25 11/30/17 02:37 Dilaudid IVPUSH 11/30/17 02:26 1 mg ONETIME ONE Administration Ondansetron HCl 4 mg 11/30/17 02:25 11/30/17 02:35 Zofran IVPUSH 11/30/17 02:26 4 mg ONETIME ONE Administration Departure - Departure Time of Disposition: 03:29 Disposition: DC/Tfer to [facility] 02 Clinical Impression: Kidney stone - Discharge Information Forms: ED Department Discharge - Problem List Review Problem List Initiated/Reviewed/Updated: Yes - My Orders Last 24 Hours: My Active Orders 11/30/17 02:25 Sodium Chloride 0.9% [Normal Saline] 1,000 ml IV .BOLUS 11/30/17 02:26 Sodium Chloride 0.9% [Saline Flush] 10 ml FLUSH ASDIRECTED PRN Peripheral IV Insertion Adult [OM.PC] Routine 11/30/17 02:45 Prochlorperazine [Compazine] 5 mg IV ONETIME ONE - Assessment/Plan Last 24 Hours: My Active Orders 11/30/17 02:25 Sodium Chloride 0.9% [Normal Saline] 1,000 ml IV .BOLUS 11/30/17 02:26 Sodium Chloride 0.9% [Saline Flush] 10 ml FLUSH ASDIRECTED PRN Peripheral IV Insertion Adult [OM.PC] Routine 11/30/17 02:45 Prochlorperazine [Compazine] 5 mg IV ONETIME ONE Plan: Pt. continues to have intractable nausea, vomiting and pain despite receiving numerous doses of parenteral antiemetics and dilaudid. [facility] was contacted again, and consulted with Dr. Andrews and Tawanda. Pt. will be accepted for pain control/urology consult. He was offered ambulance transport, but refused, opting to be transported by his via private vehicle.
[2017-11-30] MEDS: Prochlorperazine 10 MG/2 ML SDV IV ONE (02:52)
[2017-11-30 03:15] VITALS: BP 154/92
== END 2017-11-30 03:45 | disposition short-term general hospital (02) ==
LOC: VM.ED 02:14
DX: N20.0 Calculus of kidney (principal); I10 Essential (primary) hypertension; Z79.899 Other long term (current) drug therapy
CPT/HCPCS: 96361; 96374; 96375; 96376; 99284; J0780; J1170; J2405; J7030

== ENCOUNTER 2018-07-14 17:59 | Emergency (ER) | payer OTHER ==
[2018-07-14] MEDS ORDERED: Sodium Chloride 0.9% 10 ML Syringe FLUSH PRN (18:04)
[2018-07-14] MEDS ORDERED: HYDROmorphone 1 MG/ML Syringe IVPUSH ONE (18:05)
[2018-07-14] MEDS ORDERED: Sodium Chloride 0.9% 1,000 ML IV ONE (18:05)
[2018-07-14] MEDS ORDERED: Ondansetron 4 MG/2 ML SDV IVPUSH ONE (18:05)
[2018-07-14] MEDS ORDERED: Ketorolac 15 MG/ML SDV IVPUSH ONE (18:06)
--- NOTE | 2018-07-14 18:13 | EDM.PDOC ---
ED HPI GENERAL MEDICAL PROBLEM - General Stated Complaint: STONE KIDNEY Time Seen by Provider: 07/14/18 18:00 Source of Information: Reports: Patient History Limitations: Reports: No Limitations - History of Present Illness INITIAL COMMENTS - FREE TEXT/NARRATIVE: Pt. presents to ER with complaints of L sided flank pain that he has been experiencing intermittently over the past several days. States that the discomfort radiates into the groin. Pt. has a longstanding history of renal colic and kidney stones. He has Dr. Gonzalez for a urologist. Denies any fever or chills. No chest pain or shortness of breath. Denies any gross hematuria. He has not been experiencing any chest pain or shortness of breath. Denies any vomiting. He states that the discomfort is similar to what he has experienced in the past when he has had a kidney stone. Onset Date: 07/04/18 Quality: Reports: Sharp, Stabbing Severity: Severe Associated Symptoms: Reports: Nausea/Vomiting Left Flank Pain Score (Numeric/FACES): 10 - Related Data Allergies Allergy/AdvReac Type Severity Reaction Status Date / Time No Known Allergies Allergy Verified 07/14/18 18:48 Home Meds: Home Meds hydroCHLOROthiazide [Hydrochlorothiazide] 25 mg DAILY 10/13/17 [History] Tamsulosin HCl [Flomax] 0.4 mg PO DAILY 7 Days #7 cap.er.24h 11/29/17 [Rx] Past Medical History HEENT History: Reports: Sinusitis Cardiovascular History: Reports: Hypertension Genitourinary History: Reports: Hydronephrosis, Renal Calculus ED ROS GENERAL - Review of Systems Review Of Systems: See Below Constitutional: Reports: No Symptoms HEENT: Reports: No Symptoms Respiratory: Reports: No Symptoms Cardiovascular: Reports: No Symptoms Endocrine: Reports: No Symptoms GI/Abdominal: Reports: No Symptoms : Reports: Flank Pain Musculoskeletal: Reports: No Symptoms Skin: Reports: No Symptoms Neurological: Reports: No Symptoms Psychiatric: Reports: No Symptoms Hematologic/Lymphatic: Reports: No Symptoms Immunologic: Reports: No Symptoms ED EXAM, GENERAL - Physical Exam Exam: See Below Exam Limited By: No Limitations General Appearance: Alert, WD/WN, No Apparent Distress Head: Atraumatic, Normocephalic Neck: Normal Inspection, Supple, Non-Tender, Full Range of Motion Respiratory/Chest: No Respiratory Distress, Lungs Clear, Normal Breath Sounds, No Accessory Muscle Use, Chest Non-Tender Cardiovascular: Normal Peripheral Pulses, Regular Rate, Rhythm, No Edema, No Gallop, No JVD, No Murmur, No Rub Peripheral Pulses: 4+: Radial (R) GI/Abdominal: Normal Bowel Sounds, Soft, Non-Tender, No Organomegaly, No Distention, No Abnormal Bruit, No Mass (Male) Exam: Deferred Rectal (Males) Exam: Deferred Back Exam: Normal Inspection, Full Range of Motion Extremities: Normal Inspection, Normal Range of Motion, Non-Tender, No Pedal Edema, Normal Capillary Refill Neurological: Alert, Oriented, CN II-XII Intact, Normal Cognition, Normal Gait, Normal Reflexes, No Motor/Sensory Deficits Psychiatric: Normal Affect, Normal Mood Skin Exam: Warm, Dry, Intact, Normal Color Course - Vital Signs Last Recorded V/S: Last Vital Signs Temp 36.3 C 07/14/18 18:46 Pulse 81 07/14/18 18:46 Resp 16 07/14/18 18:46 BP 163/100 H 07/14/18 18:46 Pulse Ox 98 07/14/18 18:46 - Orders/Labs/Meds Orders: Active Orders 24 hr Category Date Time Status Abdomen Pelvis wo Cont [CT] Stat Exams 07/14/18 18:47 Ordered Sodium Chloride 0.9% [Saline Flush] Med 07/14/18 18:04 Active 10 ml FLUSH ASDIRECTED PRN Peripheral IV Insertion Adult [OM.PC] Routine Oth 07/14/18 18:04 Ordered Medication Orders Sodium Chloride (Saline Flush) 10 ml FLUSH ASDIRECTED PRN PRN Reason: Keep Vein Open Labs: Laboratory Tests 07/14/18 07/14/18 07/14/18 Range/Units 18:15 18:20 18:20 WBC 6.5 (4.0-10.0) x10^3/uL RBC 5.19 (4.5-6.0) x10^6/uL Hgb 17.0 (14.0-18.0) g/dL Hct 48.7 (40.0-52.0) % MCV 93.8 H (78.0-93.0) fL MCH 32.8 H (26.0-32.0) pg MCHC 34.9 (32.0-36.0) g/dL RDW Coeff of Ever 12.8 (10.0-15.0) % Plt Count 194 (130-400) x10^3/uL Neut % (Auto) 47.1 L (50.0-80.0) % Lymph % (Auto) 40.7 (25.0-50.0) % Pettis % (Auto) 5.9 (2.0-11.0) % Eos % (Auto) 5.7 H (0.0-4.0) % Baso % (Auto) 0.6 (0.2-1.2) % PT 10.2 (10.0-12.8) SEC INR 0.9 L (2.0-3.5) Sodium (136-145) mmol/L Potassium (3.5-5.1) mmol/L Chloride (98-107) mmol/L Carbon Dioxide (21-32) mmol/L Anion Gap (10-20) mmol/L BUN (7-18) mg/dL Creatinine (0.70-1.30) mg/dL Est Cr Clr Drug Dosing Estimated GFR (MDRD) Glucose (74-106) mg/dL Calcium (8.5-10.1) mg/dL Corrected Calcium (8.5-10.1) mg/dL Phosphorus (2.6-4.7) mg/dL Magnesium (1.8-2.4) mg/dL Total Bilirubin (0.2-1.0) mg/dL AST (15-37) U/L ALT (16-63) U/L Alkaline Phosphatase (46-116) U/L Total Protein (6.4-8.2) g/dL Albumin (3.4-5.0) g/dL Globulin Albumin/Globulin Ratio Urine Color Light yellow (YELLOW) Urine Appearance Clear (CLEAR) Urine pH 6.0 (5.0-8.0) Ur Specific [place] 1.020 Urine Protein Negative (NEGATIVE) mg/dL Urine Glucose (UA) Negative (NEGATIVE) mg/dL Urine Ketones Negative (NEGATIVE) mg/dL Urine Occult Blood Negative (NEGATIVE) Urine Nitrite Negative (NEGATIVE) Urine Bilirubin Negative (NEGATIVE) Urine Urobilinogen 0.2 (0.2) EU/dL Ur Leukocyte Esterase Negative (NEGATIVE) Urine RBC 0-5 (NOT SEEN) /HPF Urine WBC 0-5 (NOT SEEN) /HPF Ur Squamous Epith Cells Rare (NEGATIVE) /HPF Urine Bacteria Not seen (NEGATIVE) /HPF Urine Mucus Not seen (NEGATIVE) /LPF 07/14/18 Range/Units 18:20 WBC (4.0-10.0) x10^3/uL RBC (4.5-6.0) x10^6/uL Hgb (14.0-18.0) g/dL Hct (40.0-52.0) % MCV (78.0-93.0) fL MCH (26.0-32.0) pg MCHC (32.0-36.0) g/dL RDW Coeff of Ever (10.0-15.0) % Plt Count (130-400) x10^3/uL Neut % (Auto) (50.0-80.0) % Lymph % (Auto) (25.0-50.0) % Pettis % (Auto) (2.0-11.0) % Eos % (Auto) (0.0-4.0) % Baso % (Auto) (0.2-1.2) % PT (10.0-12.8) SEC INR (2.0-3.5) Sodium 140 (136-145) mmol/L Potassium 4.1 (3.5-5.1) mmol/L Chloride 102 (98-107) mmol/L Carbon Dioxide 31 (21-32) mmol/L Anion Gap 11.1 (10-20) mmol/L BUN 17 (7-18) mg/dL Creatinine 1.1 (0.70-1.30) mg/dL Est Cr Clr Drug Dosing TNP Estimated GFR (MDRD) > 60 Glucose 115 H (74-106) mg/dL Calcium 9.9 (8.5-10.1) mg/dL Corrected Calcium 9.82 (8.5-10.1) mg/dL Phosphorus 3.9 (2.6-4.7) mg/dL Magnesium 1.9 (1.8-2.4) mg/dL Total Bilirubin 0.5 (0.2-1.0) mg/dL AST 27 (15-37) U/L ALT 62 (16-63) U/L Alkaline Phosphatase 54 (46-116) U/L Total Protein 8.1 (6.4-8.2) g/dL Albumin 4.1 (3.4-5.0) g/dL Globulin 4.0 Albumin/Globulin Ratio 1.03 Urine Color (YELLOW) Urine Appearance (CLEAR) Urine pH (5.0-8.0) Ur Specific [place] Urine Protein (NEGATIVE) mg/dL Urine Glucose (UA) (NEGATIVE) mg/dL Urine Ketones (NEGATIVE) mg/dL Urine Occult Blood (NEGATIVE) Urine Nitrite (NEGATIVE) Urine Bilirubin (NEGATIVE) Urine Urobilinogen (0.2) EU/dL Ur Leukocyte Esterase (NEGATIVE) Urine RBC (NOT SEEN) /HPF Urine WBC (NOT SEEN) /HPF Ur Squamous Epith Cells (NEGATIVE) /HPF Urine Bacteria (NEGATIVE) /HPF Urine Mucus (NEGATIVE) /LPF Meds: Medications Generic Name Dose Route Start Last Admin Trade Name Freq PRN Reason Stop Dose Admin Sodium Chloride 10 ml 07/14/18 18:04 Saline Flush FLUSH ASDIRECTED PRN Keep Vein Open Discontinued Medications Generic Name Dose Route Start Last Admin Trade Name Freq PRN Reason Stop Dose Admin Hydromorphone HCl 1 mg 07/14/18 18:05 07/14/18 18:21 Dilaudid IVPUSH 07/14/18 18:06 1 mg ONETIME ONE Administration Sodium Chloride 1,000 mls @ 1,000 mls/hr 07/14/18 18:05 07/14/18 18:16 Normal Saline IV 07/14/18 19:04 1,000 mls/hr .BOLUS ONE Administration Ketorolac Tromethamine 15 mg 07/14/18 18:06 07/14/18 18:16 Toradol IVPUSH 07/14/18 18:07 15 mg ONETIME ONE Administration Ondansetron HCl 4 mg 07/14/18 18:05 07/14/18 18:19 Zofran IVPUSH 07/14/18 18:06 4 mg ONETIME ONE Administration Departure - Departure Time of Disposition: 07:25 Disposition: Home, Self-Care 01 Clinical Impression: Kidney stone - Discharge Information Instructions: Renal Colic, [id number] Referrals: PCP,None [Primary Care Provider] - Forms: ED Department Discharge Additional Instructions: Home to rest. Follow-up with Dr. Gonzalez as needed. Drink plenty of fluids. - My Orders Last 24 Hours: My Active Orders 07/14/18 18:04 Sodium Chloride 0.9% [Saline Flush] 10 ml FLUSH ASDIRECTED PRN Peripheral IV Insertion Adult [OM.PC] Routine 07/14/18 18:47 Abdomen Pelvis wo Cont [CT] Stat - Assessment/Plan Last 24 Hours: My Active Orders 07/14/18 18:04 Sodium Chloride 0.9% [Saline Flush] 10 ml FLUSH ASDIRECTED PRN Peripheral IV Insertion Adult [OM.PC] Routine 07/14/18 18:47 Abdomen Pelvis wo Cont [CT] Stat Plan: Home to rest. Follow-up with Dr. Gonzalez as needed. Drink plenty of fluids.
[2018-07-14 18:44] LABS: CHLORIDE,CL 102 mmol/L (98-107); SODIUM,NA 140 mmol/L (136-145)
[2018-07-14 18:46] LABS: ANION GAP 11.1 mmol/L (10-20)
[2018-07-14 18:47] VITALS: BP 163/100
== END 2018-07-14 19:25 | disposition home or self-care (01) ==
LOC: VM.ED 17:59
DX: N20.0 Calculus of kidney (principal); I10 Essential (primary) hypertension; Z79.899 Other long term (current) drug therapy
CPT/HCPCS: 36415; 80053; 81001; 82360; 83735; 84100; 85025; 85610; 96361; 96374; 96375; 99284-25; J1170; J1885; J2405; J7030

== ENCOUNTER 2018-08-09 20:56 | Emergency (ER) | payer OTHER ==
[2018-08-09 21:25] VITALS: BP 153/108
[2018-08-09] MEDS ORDERED: Ketorolac 30 MG/ML SDV ONE (21:40)
[2018-08-09] MEDS ORDERED: Ondansetron 4 MG/2 ML SDV ONE (21:40)
[2018-08-09] MEDS ORDERED: HYDROmorphone 1 MG/ML Syringe IVPUSH ONE (21:53)
[2018-08-09] MEDS ORDERED: Promethazine 12.5 MG in Sodium Chloride 0.9% 100 ML IV ONE (21:54)
--- NOTE | 2018-08-09 22:00 | EDM.PDOC ---
ED HPI GENERAL MEDICAL PROBLEM - General Chief Complaint: Flank Pain Stated Complaint: PAIN LEFT SIDE OF ABDOMEN Time Seen by Provider: 08/09/18 21:35 Source of Information: Reports: Patient History Limitations: Reports: No Limitations - History of Present Illness INITIAL COMMENTS - FREE TEXT/NARRATIVE: 37-year-old white male presents to ER today with chief complaint of left-sided flank pain that has been going on over the last couple weeks as it seems to gotten worse in the last day or 2 patient has significant history for renal stones says he may have 50-60 year which he normally passes approximately 80-90 % the other [employer] to have removed surgically by urology raise pain is stated about a 6 or 7 out of 10 left flank radiating into the groin patient also states that he is urinating normal although has decreased stream he denies any blood or dysuria no nausea vomiting no fever has been taking by mouth normal but has not taken anything yet for pain Flomax patient also states that he has approximately 6-7 CT scans within the last 6 months and probably possibly 20 in the last 1-2 years patient states this is his normal presentation for kidney stone Onset: Gradual Duration: Week(s): Severity: Moderate Improves with: Reports: Other (time) Worsens with: Reports: None Associated Symptoms: Reports: No Other Symptoms Left Flank Pain Score (Numeric/FACES): 7 - Related Data Allergies Allergy/AdvReac Type Severity Reaction Status Date / Time No Known Allergies Allergy Verified 08/09/18 23:00 Home Meds: Home Meds . [No Known Home Meds] 08/09/18 [History] Past Medical History HEENT History: Reports: Sinusitis Cardiovascular History: Reports: Hypertension Genitourinary History: Reports: Hydronephrosis, Renal Calculus Social & Family History - Tobacco Use Smoking Status *Q: Never Smoker ED ROS GENERAL - Review of Systems Review Of Systems: See Below Constitutional: Reports: No Symptoms. Denies: Fever, Chills, Weakness, Fatigue HEENT: Reports: No Symptoms Respiratory: Reports: No Symptoms Cardiovascular: Reports: No Symptoms Endocrine: Reports: No Symptoms GI/Abdominal: Reports: No Symptoms. Denies: Abdominal Pain, Hematemesis, Nausea , Vomiting : Reports: Flank Pain. Denies: Discharge, Dysuria, Hematuria, Urinary Retention Musculoskeletal: Reports: No Symptoms Skin: Reports: No Symptoms Neurological: Reports: No Symptoms Psychiatric: Reports: No Symptoms Hematologic/Lymphatic: Reports: No Symptoms Immunologic: Reports: No Symptoms ED EXAM, RENAL/ - Physical Exam Exam: See Below Exam Limited By: No Limitations General Appearance: Alert, WD/WN, No Apparent Distress (Patient looks mildly uncomfortable) Eye Exam: Bilateral Eye: PERRL Throat/Mouth: Normal Inspection, Normal Lips, Normal Teeth, Normal Gums, Normal Oropharynx (mmm) Respiratory/Chest: No Respiratory Distress, Lungs Clear, Normal Breath Sounds, No Accessory Muscle Use Cardiovascular: Normal Peripheral Pulses, Regular Rate, Rhythm, No Edema, No Gallop, No JVD, No Murmur GI/Abdominal: Normal Bowel Sounds, Soft, Non-Tender, No Organomegaly, No Distention, Other (neg cva ttp). No: Guarding, Rigid, Rebound Back Exam: Normal Inspection, Full Range of Motion. No: CVA Tenderness (L), CVA Tenderness (R) Extremities: Normal Inspection, Normal Range of Motion Neurological: Alert, Oriented, CN II-XII Intact, Normal Cognition Psychiatric: Normal Affect, Normal Mood Skin Exam: Warm, Dry, Intact, Normal Color, No Rash Course - Vital Signs Last Recorded V/S: Last Vital Signs Temp 36.3 C 08/09/18 21:15 Pulse 82 08/09/18 21:15 Resp 18 08/09/18 21:15 BP 153/108 H 08/09/18 21:15 Pulse Ox 98 08/09/18 21:15 - Orders/Labs/Meds Orders: Active Orders 24 hr Category Date Time Status BASIC METABOLIC PANEL,BMP [CHEM] Stat Lab 08/09/18 21:54 Ordered CBC W/O DIFF,HEMOGRAM [HEME] Stat Lab 08/09/18 21:55 Ordered URINALYSIS W/MICROSCOPIC [UA W/MICROSCOPIC] [URIN] Stat Lab 08/09/18 21:42 Ordered Meds: Medications Discontinued Medications Generic Name Dose Route Start Last Admin Trade Name Freq PRN Reason Stop Dose Admin Hydromorphone HCl 1 mg 08/09/18 21:53 Dilaudid IVPUSH 08/09/18 21:54 ONETIME ONE Promethazine HCl 12.5 mg/ 100.5 mls @ 400 mls/hr 08/09/18 21:54 Sodium Chloride IV 08/09/18 22:09 ONETIME ONE Ketorolac Tromethamine Confirm 08/09/18 21:40 08/09/18 21:45 Toradol Administered 08/09/18 21:41 30 mg Dose Administration 30 mg .ROUTE .STK-MED ONE Ondansetron HCl Confirm 08/09/18 21:40 08/09/18 21:45 Zofran Administered 08/09/18 21:41 4 mg Dose Administration 4 mg .ROUTE .STK-MED ONE - Re-Assessments/Exams Free Text/Narrative Re-Assessment/Exam: 08/09/18 22:59 Patient was given a prescription of Lortab 5 mg 1 tab by mouth every 4-6 hours number of 11 Phenergan 25 mg 1 tab by mouth every 4-6 hours #20 patient also has a prescription for Flomax at home patient gives verbal understanding along with his brother on needs and signs and symptoms to return to the ER Departure - Departure Time of Disposition: 23:00 Disposition: Home, Self-Care 01 Condition: Good Clinical Impression: Kidney stone - Discharge Information Referrals: PCP,Unobtain [Primary Care Provider] - Forms: ED Department Discharge Additional Instructions: All urology clinic with Dr. Gonzalez Sunday a.m. for stay at [phone] for an appointment Sunday or Sunday take medications as directed - Problem List & Annotations (1) Renal colic on left side SNOMED Code(s): 0735764 Code(s): N23 - UNSPECIFIED RENAL COLIC Status: Acute Current Visit: Yes - My Orders Last 24 Hours: My Active Orders 08/09/18 21:42 URINALYSIS W/MICROSCOPIC [UA W/MICROSCOPIC] [URIN] Stat 08/09/18 21:54 BASIC METABOLIC PANEL,BMP [CHEM] Stat 08/09/18 21:55 CBC W/O DIFF,HEMOGRAM [HEME] Stat - Assessment/Plan Last 24 Hours: My Active Orders 08/09/18 21:42 URINALYSIS W/MICROSCOPIC [UA W/MICROSCOPIC] [URIN] Stat 08/09/18 21:54 BASIC METABOLIC PANEL,BMP [CHEM] Stat 08/09/18 21:55 CBC W/O DIFF,HEMOGRAM [HEME] Stat Plan: Spoke with Dr. Brambila urology in [place] he agrees that the patient does not need to be scaned and then his CBC and BMP are normal he can be seen outpatient with Dr. Gonzalez have him call the clinic Sunday a.m. for an appointment and he will be seen Sunday or Sunday where he will receive possibly an ultrasound or an x-ray phone number [phone] he is okay with sending him home with some narcotics and Flomax telling him to increase water or if any Symptoms Get Worse
[2018-08-09 22:41] LABS: ANION GAP 14.3 mmol/L (10-20); CHLORIDE,CL 103 mmol/L (98-107); SODIUM,NA 142 mmol/L (136-145)
[2018-08-09] MEDS ORDERED: Take Home: Acetaminophen/HYDROcodone 325-5 MG, 5 Tab Pack PO ONE (22:58)
[2018-08-09] MEDS ORDERED: Take Home: Promethazine 25 MG, 4 Tab Pack PO ONE (22:58)
== END 2018-08-09 23:11 | disposition home or self-care (01) ==
LOC: VM.ED 20:56
DX: N20.0 Calculus of kidney (principal); I10 Essential (primary) hypertension
CPT/HCPCS: 36415; 80048; 81001; 85027; 96374; 96375; 99284; A9270; J1170; J1885; J2405; J2550; J7050

== ENCOUNTER 2018-08-10 19:27 | Emergency (ER) | payer OTHER ==
--- NOTE | 2018-08-10 19:52 | EDM.PDOC ---
ED HPI GENERAL MEDICAL PROBLEM - General Chief Complaint: Flank Pain Stated Complaint: PAIN IN LOWER L SIDE Time Seen by Provider: 08/10/18 19:30 Source of Information: Reports: Patient History Limitations: Reports: No Limitations - History of Present Illness INITIAL COMMENTS - FREE TEXT/NARRATIVE: Patient states that the pain has steadily increased all day since yesterday from the left flank down into the left side of the groin sharp stabbing waves intermittently lasting 5-10 minutes pain level VII or 8 out of 10. Denies any vomiting fever chills dysuria he is having some nausea Onset: Gradual Duration: Week(s): Severity: Moderate Improves with: Reports: Medication Left Flank Pain Score (Numeric/FACES): 8 - Related Data Allergies Allergy/AdvReac Type Severity Reaction Status Date / Time No Known Allergies Allergy Verified 08/09/18 23:00 Home Meds: Home Meds . [No Known Home Meds] 08/09/18 [History] Past Medical History HEENT History: Reports: Sinusitis Cardiovascular History: Reports: Hypertension Genitourinary History: Reports: Hydronephrosis, Renal Calculus ED ROS GENERAL - Review of Systems Review Of Systems: See Below Constitutional: Denies: Fever, Chills, Malaise, Weakness, Fatigue Respiratory: Reports: No Symptoms Cardiovascular: Reports: No Symptoms Endocrine: Reports: No Symptoms GI/Abdominal: Reports: No Symptoms : Reports: Flank Pain. Denies: Discharge, Dysuria, Frequency Musculoskeletal: Reports: No Symptoms Skin: Reports: No Symptoms Neurological: Reports: No Symptoms Hematologic/Lymphatic: Reports: No Symptoms Immunologic: Reports: No Symptoms ED EXAM, RENAL/ - Physical Exam Exam: See Below Exam Limited By: No Limitations General Appearance: Alert, WD/WN, No Apparent Distress, Mild Distress Neck: Normal Inspection, Full Range of Motion Respiratory/Chest: No Respiratory Distress, Lungs Clear, Normal Breath Sounds, No Accessory Muscle Use, Chest Non-Tender Cardiovascular: Normal Peripheral Pulses, Regular Rate, Rhythm, No Edema, Other (Noted hypertension on vital signs patient states he has not taken his hydrochlorothiazide in the last 1-2 weeks states it is normally not this high this is due to pain) GI/Abdominal: Normal Bowel Sounds, Soft, Non-Tender, No Organomegaly, No Distention, Other (No CVA tenderness) Back Exam: Full Range of Motion. No: CVA Tenderness (L), CVA Tenderness (R) Extremities: Normal Inspection, Normal Range of Motion, No Pedal Edema Neurological: Alert, Oriented, CN II-XII Intact, Normal Cognition, Normal Gait Skin Exam: Warm, Dry Course - Vital Signs Last Recorded V/S: Last Vital Signs Temp 36.3 C 08/10/18 19:37 Pulse 88 08/10/18 19:37 Resp 24 H 08/10/18 19:37 BP 176/97 H 08/10/18 21:02 Pulse Ox - Orders/Labs/Meds Orders: Active Orders 24 hr Category Date Time Status Abdomen Pelvis wo Cont [CT] Stat Exams 08/10/18 19:43 Ordered HYDROmorphone [Dilaudid] Med 08/10/18 20:07 Active 1 mg SUBCUT Q4H PRN Medication Orders Hydromorphone HCl (Dilaudid) 1 mg SUBCUT Q4H PRN PRN Reason: Pain Last Admin: 08/10/18 20:14 Dose: 1 mg Meds: Medications Generic Name Dose Route Start Last Admin Trade Name Freq PRN Reason Stop Dose Admin Hydromorphone HCl 1 mg 08/10/18 20:07 08/10/18 20:14 Dilaudid SUBCUT 1 mg Q4H PRN Administration Pain Discontinued Medications Generic Name Dose Route Start Last Admin Trade Name Freq PRN Reason Stop Dose Admin Promethazine HCl 12.5 mg 08/10/18 20:07 08/10/18 20:15 Phenergan IM 08/10/18 20:08 12.5 mg ONETIME ONE Administration - Re-Assessments/Exams Free Text/Narrative Re-Assessment/Exam: 08/10/18 19:51 Patient is requesting a CT scan figure out what is going on patient was educated on the amount of CTs that he has had in the past and exposure to radiation states he was not worried about it at this time 08/10/18 21:14 CT scan impression obstructing left distal ureteral stone additional multiple nonobstructive bilateral nephrolithiasis 5 mm left distal ureteral stone is obstructing with severe hydronephrosis Called [facility] spoke with Dr. BELL on-call urology will accept transfer of care for the patient is okay with the patient coming POV and no lab work obtained tonight secondary to lab work last night was within normal limits Patient's vital signs were rechecked blood pressure was 179/79 at time of discharge Patient will be given 1 mg of Dilaudid and 12.5 mg of Phenergan IM and discharged under his 's care to transport to [facility] Departure - Departure Time of Disposition: 21:05 Disposition: DC/Tfer to [facility] 02 Condition: Good Clinical Impression: Renal calculus, left, Hydronephrosis concurrent with and due to calculi of kidney and ureter - Discharge Information Referrals: PCP,Not In Area [Primary Care Provider] - Forms: ED Department Discharge - Problem List & Annotations (1) Hypertension SNOMED Code(s): 76900033 Code(s): I10 - ESSENTIAL (PRIMARY) HYPERTENSION Status: Acute Priority: Low Current Visit: No Qualifiers: Hypertension type: unspecified secondary hypertension Qualified Code(s): I15.9 - Secondary hypertension, unspecified; I15 - Secondary hypertension (2) HTN (hypertension) SNOMED Code(s): 45350163 Code(s): I10 - ESSENTIAL (PRIMARY) HYPERTENSION Status: Acute Current Visit: Yes (3) Renal calculus, left SNOMED Code(s): 24774142 Code(s): N20.0 - CALCULUS OF KIDNEY Status: Acute Current Visit: Yes (4) Hydroureteronephrosis SNOMED Code(s): 11554535 Code(s): N13.30 - UNSPECIFIED HYDRONEPHROSIS Status: Acute Current Visit : No (5) Hydronephrosis SNOMED Code(s): 25648561 Code(s): N13.30 - UNSPECIFIED HYDRONEPHROSIS Status: Acute Current Visit : No - My Orders Last 24 Hours: My Active Orders 08/10/18 19:43 Abdomen Pelvis wo Cont [CT] Stat 08/10/18 20:07 HYDROmorphone [Dilaudid] 1 mg SUBCUT Q4H PRN - Assessment/Plan Last 24 Hours: My Active Orders 08/10/18 19:43 Abdomen Pelvis wo Cont [CT] Stat 08/10/18 20:07 HYDROmorphone [Dilaudid] 1 mg SUBCUT Q4H PRN Plan: Patient will be discharged and taken POV to [facility] to be further treated by urology patient gives verbal understanding along with for transportation and return to the ER for any signs or symptoms get worse
[2018-08-10] MEDS ORDERED: Promethazine 25 MG/ML SDV IM ONE ×2 (20:07→21:20)
[2018-08-10] MEDS: HYDROmorphone 1 MG/ML Syringe SUBCUT PRN ×2 (20:14→21:29)
[2018-08-10 21:02] VITALS: BP 176/97
[2018-08-10] MEDS ORDERED: HYDROmorphone 1 MG/ML Syringe SUBCUT ONE (21:20)
--- NOTE | 2018-08-11 11:59 | CT ---
[id number] CT/CT Abdomen Pelvis WO IV EXAM: CT Abdomen Pelvis WO IV CLINICAL DATA: RULE OUT RENAL STONE. COMPARISON STUDY: 11/29/2017. FINDINGS: Lung bases are clear. Generalized hypodensity liver consistent with hepatic steatosis. The spleen, pancreas, gallbladder and adrenal glands are unremarkable. Multiple bilateral renal calculi are identified. The largest calculus on the left measures 0.9 cm. The largest calculus on the right measures 1.3 cm. There is a 0.5 cm calculus within the middle 3rd of the left ureter resulting in moderate hydronephrosis and hydroureter. Additionally there is asymmetric perinephric fat stranding on the left which may suggest calyceal rupture. No bowel obstruction or inflammation. The appendix is visualized and appears normal. No lymphadenopathy, free fluid, or pneumoperitoneum. Scattered changes of spondylosis the spine. No fracture or osseous lesion. IMPRESSION: 1. 5 mm obstructing stone within the middle 3rd of the left ureter resulting in moderate hydronephrosis and hydroureter. 2. Numerous renal stones are identified bilaterally as described above. Marty Drew DO 08/11/18 [id number] Thank you for allowing us to participate in the care of your patient.
== END 2018-08-10 21:35 | disposition short-term general hospital (02) ==
LOC: VM.ED 19:27
DX: N13.2 Hydronephrosis with renal and ureteral calculous obstruction (principal); I10 Essential (primary) hypertension
CPT/HCPCS: 74176; 96372; 99284; J1170; J2550

== ENCOUNTER 2019-04-18 12:27 | Emergency (ER) | payer OTHER ==
[2019-04-18] MEDS ORDERED: Sodium Chloride 0.9% 10 ML Syringe FLUSH PRN (13:20)
[2019-04-18] MEDS ORDERED: Ketorolac 30 MG/ML SDV IVPUSH ONE (13:20)
[2019-04-18] MEDS ORDERED: Sodium Chloride 0.9% 1,000 ML IV ONE (13:21)
[2019-04-18 13:38] VITALS: BP 133/88; PULSE 84
--- NOTE | 2019-04-18 13:39 | EDM.PDOC ---
ED HPI GENERAL MEDICAL PROBLEM - General Chief Complaint: Abdominal Pain Stated Complaint: KIDNEY STONE Time Seen by Provider: 04/18/19 13:00 Source of Information: Reports: Patient - History of Present Illness INITIAL COMMENTS - FREE TEXT/NARRATIVE: Patient comes in the emergency department with complaint of left flank pain. Patient has a long-standing history of kidney stones. He's also had 2 lithotripsies done in the past. He states that this pain is very similar to the previous times he's had kidney stones. He states that he did pass a kidney stone on 04/02/2019. He states that he has noticed the last 2-3 days of increased amount of pain on the left side. He also noticed large amount of sediment in his urine this morning. He denies any blood or frequency or hesitancy with his urination. He states that the pain is localized to left lower kidney region. Eyes any fever nausea or vomiting with this. He states that it is uncomfortable feels like a stabbing sensation in the left kidney. Around does make it feel better. Onset: Gradual Location: Reports: Back Quality: Reports: Burning, Sharp, Throbbing Severity: Moderate Improves with: Reports: Movement Worsens with: Reports: Rest Context: Reports: Other Associated Symptoms: Reports: No Other Symptoms - Related Data Allergies Allergy/AdvReac Type Severity Reaction Status Date / Time No Known Allergies Allergy Verified 04/18/19 13:43 Home Meds: Home Meds FLUoxetine HCl [Fluoxetine HCl] 20 mg PO DAILY 04/18/19 [History] Ketorolac [Toradol] 10 mg PO TID PRN #15 tab 04/18/19 [Rx] Tamsulosin HCl 0.4 mg PO DAILY 04/18/19 [History] Tamsulosin HCl [Flomax] 0.4 mg PO DAILY #14 cap.er.24h 04/18/19 [Rx] hydroCHLOROthiazide [Hydrochlorothiazide] 25 mg PO DAILY 04/18/19 [History] traZODone HCl [Trazodone HCl] 50 mg PO DAILY 04/18/19 [History] Past Medical History HEENT History: Reports: Sinusitis Cardiovascular History: Reports: Hypertension Genitourinary History: Reports: Hydronephrosis, Renal Calculus ED ROS GENERAL - Review of Systems Review Of Systems: Comprehensive ROS is negative, except as noted in HPI. Constitutional: Reports: No Symptoms HEENT: Reports: No Symptoms Respiratory: Reports: No Symptoms Cardiovascular: Reports: No Symptoms Endocrine: Reports: No Symptoms GI/Abdominal: Reports: No Symptoms Musculoskeletal: Reports: No Symptoms Skin: Reports: No Symptoms Neurological: Reports: No Symptoms ED EXAM, GENERAL - Physical Exam Exam: See Below Exam Limited By: No Limitations General Appearance: Alert, WD/WN, No Apparent Distress Head: Atraumatic, Normocephalic Neck: Normal Inspection, Supple, Non-Tender, Full Range of Motion Respiratory/Chest: No Respiratory Distress, Lungs Clear, Normal Breath Sounds, No Accessory Muscle Use, Chest Non-Tender Cardiovascular: Normal Peripheral Pulses, Regular Rate, Rhythm, No Edema, No Murmur GI/Abdominal: Normal Bowel Sounds, Soft, Non-Tender, No Distention, No Abnormal Bruit Back Exam: Normal Inspection, Full Range of Motion Extremities: Normal Inspection, Normal Range of Motion, Non-Tender Neurological: Alert, Oriented, Normal Gait Skin Exam: Warm, Dry, Intact, Normal Color Course - Orders/Labs/Meds Orders: Active Orders 24 hr Category Date Time Status Abdomen Pelvis wo Cont [CT] Stat Exams 04/18/19 13:20 Ordered CBC WITH AUTO DIFF [HEME] Stat Lab 04/18/19 13:20 Ordered COMPREHENSIVE METABOLIC PN,CMP [CHEM] Stat Lab 04/18/19 13:20 Ordered UA RFX WEN AND CULT IF INDIC [URIN] Stat Lab 04/18/19 13:24 Ordered Sodium Chloride 0.9% @ Wide Open(1,000ml) Med 04/18/19 13:21 Ordered Sodium Chloride 0.9% [Normal Saline] 1,000 ml IV ONETIME Sodium Chloride 0.9% [Saline Flush] Med 04/18/19 13:20 Ordered 10 ml FLUSH ASDIRECTED PRN Peripheral IV Insertion Adult [OM.PC] Stat Oth 04/18/19 13:20 Ordered Medication Orders Sodium Chloride (Normal Saline) 1,000 mls @ 999 mls/hr IV ONETIME ONE Stop: 04/18/19 14:21 Sodium Chloride (Saline Flush) 10 ml FLUSH ASDIRECTED PRN PRN Reason: Keep Vein Open Meds: Medications Generic Name Dose Route Start Last Admin Trade Name Freq PRN Reason Stop Dose Admin Sodium Chloride 1,000 mls @ 999 mls/hr 01/17/20 13:21 Normal Saline IV 04/18/19 14:21 ONETIME ONE Sodium Chloride 10 ml 04/18/19 13:20 Saline Flush FLUSH ASDIRECTED PRN Keep Vein Open Discontinued Medications Generic Name Dose Route Start Last Admin Trade Name Perico PRN Reason Stop Dose Admin Ketorolac Tromethamine 30 mg 04/18/19 13:20 Toradol IVPUSH 04/18/19 13:21 ONETIME ONE Departure - Departure Time of Disposition: 13:30 Disposition: Home, Self-Care 01 Condition: Good Clinical Impression: Kidney stone, Hydronephrosis - Discharge Information *PRESCRIPTION DRUG MONITORING PROGRAM REVIEWED*: Not Applicable *COPY OF PRESCRIPTION DRUG MONITORING REPORT IN PATIENT CODY: Not Applicable Instructions: Kidney Stones, [id number], Hydronephrosis, Ketorolac tablets, Tamsulosin capsules Forms: ED Department Discharge Additional Instructions: 1. rest 2. increase your water intake 3. Can strain urine and bring in stones for analysis if you wish. I know you have had this completed in the past 4. Take Flomax daily for 14 days 5. Take Toradol as needed for pain and also take [id number] Tylenol as needed 6. Activity and diet as tolerated 7. If kidney stones continue it would be advisable to follow up with urology again 8. Call with any questions or concerns - My Orders Last 24 Hours: My Active Orders 04/18/19 13:20 Abdomen Pelvis wo Cont [CT] Stat CBC WITH AUTO DIFF [HEME] Stat COMPREHENSIVE METABOLIC PN,CMP [CHEM] Stat Sodium Chloride 0.9% [Saline Flush] 10 ml FLUSH ASDIRECTED PRN Peripheral IV Insertion Adult [OM.PC] Stat 04/18/19 13:21 Sodium Chloride 0.9% @ Wide Open(1,000ml) Sodium Chloride 0.9% [Normal Saline] 1 ,000 ml IV ONETIME 04/18/19 13:24 UA RFX WEN AND CULT IF INDIC [URIN] Stat - Assessment/Plan Last 24 Hours: My Active Orders 04/18/19 13:20 Abdomen Pelvis wo Cont [CT] Stat CBC WITH AUTO DIFF [HEME] Stat COMPREHENSIVE METABOLIC PN,CMP [CHEM] Stat Sodium Chloride 0.9% [Saline Flush] 10 ml FLUSH ASDIRECTED PRN Peripheral IV Insertion Adult [OM.PC] Stat 04/18/19 13:21 Sodium Chloride 0.9% @ Wide Open(1,000ml) Sodium Chloride 0.9% [Normal Saline] 1 ,000 ml IV ONETIME 04/18/19 13:24 UA RFX WEN AND CULT IF INDIC [URIN] Stat Assessment:: 1. Kidney stone 2. Hydronephrosis Plan: 1. Labs completed in ER. Results reviewed with patient 2. UA completed in ER. Results reviewed with patient 3. CT kidney protocol completed in the ER. Results reviewed with the patient 4. IV and fluids initiated in the ER 5. Toradol given pain and discomfort 6. Education regarding activity, diet, rest, [id number] medication, Toradol, Flomax was provided to the patient. 7. All questions and concerns were addressed prior to patient's discharge
[2019-04-18 13:59] LABS: ANION GAP 13.2 mmol/L (10-20); CHLORIDE,CL 99 mmol/L (98-107); SODIUM,NA 139 mmol/L (136-145)
[2019-04-18] MEDS ORDERED: Ondansetron 4 MG/2 ML SDV IVPUSH ONE (14:12)
--- NOTE | 2019-04-18 14:22 | CT ---
[id number] CT/CT Abdomen Pelvis WO IV EXAM: CT Abdomen Pelvis WO IV CLINICAL DATA: LEFT FLANK PAIN X 2 DAYS. COMPARISON STUDY: August 11, 2018. FINDINGS: Lung bases are clear. Generalized hypodensity liver consistent with hepatic steatosis. The spleen, pancreas, gallbladder and adrenal glands are unremarkable. Multiple bilateral renal calculi are identified. The largest calculus on the left measures 0.9 cm. The largest calculus on the right measures 1.3 cm. Again identified is moderate to severe left hydronephrosis. There is punctate (2 mm) calcification within the distal 3rd of the left likely representing obstructing stone. Previously there was a 5 mm stone at this location. No bowel obstruction or inflammation. The appendix is visualized and appears normal. No lymphadenopathy, free fluid, or pneumoperitoneum. Scattered changes of spondylosis the spine. No fracture or osseous lesion. IMPRESSION: 1. 2 mm hyperdensity within the middle 3rd of the left ureter suggests some residual component of previously identified 5 mm stone. There is resulting moderate to severe hydronephrosis and hydroureter. Given the improved stone burden, question is made of chronic scarring contributing to obstruction. 2. Numerous renal stones are identified bilaterally as described above. Marty Drew DO 04/18/19 [id number] Thank you for allowing us to participate in the care of your patient.
== END 2019-04-18 14:42 | disposition home or self-care (01) ==
LOC: VM.ED 12:27
DX: N13.2 Hydronephrosis with renal and ureteral calculous obstruction (principal); I10 Essential (primary) hypertension; Z79.899 Other long term (current) drug therapy
CPT/HCPCS: 36415; 74176; 80053; 81001; 85025; 96361; 96374; 96375; 99284-25; J1885; J2405; J7030

== ENCOUNTER 2019-09-29 15:00 | Emergency (ER) | payer OTHER ==
[2019-09-29] MEDS ORDERED: Ondansetron 4 MG/2 ML SDV IVPUSH ONE (15:33)
[2019-09-29] MEDS ORDERED: Ketorolac 15 MG/ML SDV IVPUSH ONE (15:33)
[2019-09-29] MEDS ORDERED: Morphine 4 MG/ML Syringe IVPUSH ONE (15:33)
[2019-09-29] MEDS ORDERED: Sodium Chloride 0.9% 1,000 ML IV ONE (15:33)
[2019-09-29] MEDS ORDERED: Sodium Chloride 0.9% 10 ML Syringe FLUSH PRN (15:37)
[2019-09-29 16:12] LABS: CHLORIDE,CL 103 mmol/L (98-107); SODIUM,NA 141 mmol/L (136-145)
--- NOTE | 2019-09-29 17:04 | CT ---
[id number] CT/CT Abdomen Pelvis WO IV EXAM: CT Abdomen Pelvis WO IV CLINICAL DATA: LEFT SIDED FLANK PAIN. COMPARISON STUDY: April 18, 2019. FINDINGS: Lung bases are clear. There is a 6 mm stone within the middle 3rd of the left ureter. There is associated moderate to severe left hydroureteronephrosis. The hydronephrosis is similar to prior study however this 5 mm stone was not identified previously. Multiple additional bilateral renal calculi are again identified. The overall stone burden has increased when compared to the prior study. Generalized hypodensity liver consistent with hepatic steatosis. The spleen, pancreas, gallbladder and adrenal glands are unremarkable. Circumferential wall thickening the urinary bladder likely related to underdistention. No bowel obstruction or inflammation. The appendix is visualized and appears normal. No lymphadenopathy, free fluid, or pneumoperitoneum. Scattered changes of spondylosis the spine. No fracture or osseous lesion. IMPRESSION: Moderate to severe left hydroureteronephrosis is not significantly changed when compared to the prior study. There is a new 5 mm stone within the middle 3rd of the left ureter. Findings are suggestive of acute on chronic obstruction. Marty Drew DO 09/29/19 [id number] Thank you for allowing us to participate in the care of your patient.
[2019-09-29 17:05] VITALS: BP 172/89; PULSE 63
--- NOTE | 2019-09-29 17:16 | EDM.PDOC ---
ED HPI GENERAL MEDICAL PROBLEM - General Chief Complaint: Genitourinary Problem Stated Complaint: POSSIBLE KIDNEY STONE Time Seen by Provider: 09/29/19 15:00 Source of Information: Reports: Patient History Limitations: Reports: No Limitations - History of Present Illness INITIAL COMMENTS - FREE TEXT/NARRATIVE: Pt. presents to ER with complaints of L sided flank pain that started yesterday. Pt. has a longstanding history of kidney stones. He is followed by Dr. Gonzalez. Pt. last kidney stone problem was several months ago. Urine has been discolored. Denies any fever or chills. Pt. denies any chest pain or shortness of breath. He complains of being nauseated. Onset: Today Onset Date: 09/29/19 Location: Reports: Pelvis Quality: Reports: Sharp Severity: Severe Associated Symptoms: Reports: Nausea/Vomiting Left Flank Pain Score (Numeric/FACES): 6 - Related Data Allergies Allergy/AdvReac Type Severity Reaction Status Date / Time No Known Allergies Allergy Verified 09/29/19 16:53 Home Meds: Home Meds FLUoxetine HCl [Fluoxetine HCl] 20 mg PO DAILY 04/18/19 [History] hydroCHLOROthiazide [Hydrochlorothiazide] 25 mg PO DAILY 04/18/19 [History] traZODone HCl [Trazodone HCl] 50 mg PO DAILY 04/18/19 [History] Past Medical History HEENT History: Reports: Sinusitis Cardiovascular History: Reports: Hypertension Genitourinary History: Reports: Hydronephrosis, Renal Calculus ED ROS GENERAL - Review of Systems Review Of Systems: See Below Constitutional: Reports: No Symptoms HEENT: Reports: No Symptoms Respiratory: Reports: No Symptoms Cardiovascular: Reports: No Symptoms Endocrine: Reports: No Symptoms GI/Abdominal: Reports: No Symptoms : Reports: Pain Musculoskeletal: Reports: No Symptoms Skin: Reports: No Symptoms Neurological: Reports: No Symptoms Psychiatric: Reports: No Symptoms Hematologic/Lymphatic: Reports: No Symptoms Immunologic: Reports: No Symptoms ED EXAM, GENERAL - Physical Exam Exam: See Below Exam Limited By: No Limitations General Appearance: Alert, WD/WN, No Apparent Distress Head: Atraumatic, Normocephalic Neck: Normal Inspection, Supple, Non-Tender, Full Range of Motion Respiratory/Chest: No Respiratory Distress, Lungs Clear, Normal Breath Sounds, No Accessory Muscle Use, Chest Non-Tender Cardiovascular: Normal Peripheral Pulses, Regular Rate, Rhythm, No Edema, No Gallop, No JVD, No Murmur, No Rub GI/Abdominal: Normal Bowel Sounds, Soft, Non-Tender, No Mass (Male) Exam: Deferred Rectal (Males) Exam: Deferred Extremities: Normal Inspection, Normal Range of Motion, Normal Capillary Refill Neurological: Alert, Oriented, CN II-XII Intact, Normal Cognition, Normal Reflexes, No Motor/Sensory Deficits Psychiatric: Normal Affect, Normal Mood Skin Exam: Warm, Dry, Intact, Normal Color, No Rash Lymphatic: No Adenopathy Course - Vital Signs Last Recorded V/S: Last Vital Signs Temp 36.8 C 09/29/19 15:00 Pulse 63 09/29/19 15:00 Resp 16 09/29/19 15:00 BP 172/89 H 09/29/19 15:00 Pulse Ox 96 09/29/19 15:00 - Orders/Labs/Meds Orders: Active Orders 24 hr Category Date Time Status Sodium Chloride 0.9% [Saline Flush] Med 09/29/19 15:37 Active 10 ml FLUSH ASDIRECTED PRN Peripheral IV Insertion Adult [OM.PC] Routine Oth 09/29/19 15:37 Ordered Medication Orders Sodium Chloride (Saline Flush) 10 ml FLUSH ASDIRECTED PRN PRN Reason: Keep Vein Open Labs: Laboratory Tests 09/29/19 09/29/19 09/29/19 Range/Units 15:33 15:39 15:39 WBC 7.3 (4.0-10.0) x10^3/uL RBC 4.56 (4.5-6.0) x10^6/uL Hgb 15.3 D (14.0-18.0) g/dL Hct 42.6 (40.0-52.0) % MCV 93.4 H (78.0-93.0) fL MCH 33.6 H (26.0-32.0) pg MCHC 35.9 (32.0-36.0) g/dL RDW Coeff of Ever 11.8 (10.0-15.0) % Plt Count 186 (130-400) x10^3/uL Neut % (Auto) 62.0 (50.0-80.0) % Lymph % (Auto) 25.5 (25.0-50.0) % [place] % (Auto) 8.2 (2.0-11.0) % Eos % (Auto) 3.8 (0.0-4.0) % Baso % (Auto) 0.5 (0.2-1.2) % PT 9.9 (9.5-12.3) SEC INR 0.9 L (2.0-3.5) Sodium (136-145) mmol/L Potassium (3.5-5.1) mmol/L Chloride (98-107) mmol/L Carbon Dioxide (21-32) mmol/L Anion Gap (10-20) mmol/L BUN (7-18) mg/dL Creatinine (0.70-1.30) mg/dL Est Cr Clr Drug Dosing Estimated GFR (MDRD) Glucose (74-106) mg/dL Calcium (8.5-10.1) mg/dL Corrected Calcium (8.5-10.1) mg/dL Total Bilirubin (0.2-1.0) mg/dL AST (15-37) U/L ALT (16-63) U/L Alkaline Phosphatase (46-116) U/L Total Protein (6.4-8.2) g/dL Albumin (3.4-5.0) g/dL Globulin Albumin/Globulin Ratio Urine Color Light yellow (YELLOW) Urine Appearance Cloudy H (CLEAR) Urine pH 7.5 (5.0-8.0) Ur Specific [place] 1.025 Urine Protein Negative (NEGATIVE) mg/dL Urine Glucose (UA) Negative (NEGATIVE) mg/dL Urine Ketones Negative (NEGATIVE) mg/dL Urine Occult Blood Moderate H (NEGATIVE) Urine Nitrite Negative (NEGATIVE) Urine Bilirubin Negative (NEGATIVE) Urine Urobilinogen 0.2 (0.2) EU/dL Ur Leukocyte Esterase Negative (NEGATIVE) Urine RBC 10-20 H (NOT SEEN) /HPF Urine WBC 0-5 (NOT SEEN) /HPF Ur Squamous Epith Cells Rare (NEGATIVE) /HPF Amorphous Sediment Moderate Urine Bacteria Occasional H (NEGATIVE) /HPF Urine Mucus Occasional H (NEGATIVE) /LPF 09/29/19 Range/Units 15:39 WBC (4.0-10.0) x10^3/uL RBC (4.5-6.0) x10^6/uL Hgb (14.0-18.0) g/dL Hct (40.0-52.0) % MCV (78.0-93.0) fL MCH (26.0-32.0) pg MCHC (32.0-36.0) g/dL RDW Coeff of Ever (10.0-15.0) % Plt Count (130-400) x10^3/uL Neut % (Auto) (50.0-80.0) % Lymph % (Auto) (25.0-50.0) % [place] % (Auto) (2.0-11.0) % Eos % (Auto) (0.0-4.0) % Baso % (Auto) (0.2-1.2) % PT (9.5-12.3) SEC INR (2.0-3.5) Sodium 141 (136-145) mmol/L Potassium 4.0 (3.5-5.1) mmol/L Chloride 103 (98-107) mmol/L Carbon Dioxide 28 (21-32) mmol/L Anion Gap 14.0 (10-20) mmol/L BUN 18 (7-18) mg/dL Creatinine 1.4 H (0.70-1.30) mg/dL Est Cr Clr Drug Dosing TNP Estimated GFR (MDRD) 56 Glucose 108 H (74-106) mg/dL Calcium 8.9 (8.5-10.1) mg/dL Corrected Calcium 8.90 (8.5-10.1) mg/dL Total Bilirubin 0.4 (0.2-1.0) mg/dL AST 27 (15-37) U/L ALT 44 (16-63) U/L Alkaline Phosphatase 42 L (46-116) U/L Total Protein 7.2 (6.4-8.2) g/dL Albumin 4.0 (3.4-5.0) g/dL Globulin 3.2 Albumin/Globulin Ratio 1.25 Urine Color (YELLOW) Urine Appearance (CLEAR) Urine pH (5.0-8.0) Ur Specific [place] Urine Protein (NEGATIVE) mg/dL Urine Glucose (UA) (NEGATIVE) mg/dL Urine Ketones (NEGATIVE) mg/dL Urine Occult Blood (NEGATIVE) Urine Nitrite (NEGATIVE) Urine Bilirubin (NEGATIVE) Urine Urobilinogen (0.2) EU/dL Ur Leukocyte Esterase (NEGATIVE) Urine RBC (NOT SEEN) /HPF Urine WBC (NOT SEEN) /HPF Ur Squamous Epith Cells (NEGATIVE) /HPF Amorphous Sediment Urine Bacteria (NEGATIVE) /HPF Urine Mucus (NEGATIVE) /LPF Meds: Medications Generic Name Dose Route Start Last Admin Trade Name Freq PRN Reason Stop Dose Admin Sodium Chloride 10 ml 09/29/19 15:37 Saline Flush FLUSH ASDIRECTED PRN Keep Vein Open Discontinued Medications Generic Name Dose Route Start Last Admin Trade Name Freq PRN Reason Stop Dose Admin Sodium Chloride 1,000 mls @ 1,000 mls/hr 09/29/19 15:33 09/29/19 15:50 Normal Saline IV 09/29/19 16:32 1,000 mls/hr .BOLUS ONE Administration Ketorolac Tromethamine 15 mg 09/29/19 15:33 09/29/19 15:50 Toradol IVPUSH 09/29/19 15:34 15 mg ONETIME ONE Administration Morphine Sulfate 4 mg 09/29/19 15:33 09/29/19 15:51 Morphine IVPUSH 09/29/19 15:34 4 mg ONETIME ONE Administration Ondansetron HCl 4 mg 09/29/19 15:33 09/29/19 15:51 Zofran IVPUSH 09/29/19 15:34 4 mg ONETIME ONE Administration - Radiology Interpretation Free Text/Narrative:: 5 mm. stone L ureter. Mod to severe hydronephrosis. Departure - Departure Time of Disposition: 17:20 Disposition: Home, Self-Care 01 Clinical Impression: Kidney stone on left side - Discharge Information Instructions: Acetaminophen; Hydrocodone tablets or capsules, Ondansetron oral dissolving tablet, Kidney Stones, [id number], Tamsulosin capsules Referrals: Steve Moody MD [Primary Care Provider] - Forms: ED Department Discharge Additional Instructions: [place] 10/325mg 1 every 4-6 hours as needed for pain Flomax 0.4mg 1 daily to assist with passing stone Zofran ODT 4mg 1 every 6 hours as needed for nausea Drink plenty of fluids Strain urine. Collect stones to bring to clinic for analysis Return to ER or contact Carlos or you are having pain that is not amenable to the oral pain medications. Sepsis Event Note (ED) - Evaluation Sepsis Screening Result: No Definite Risk - Focused Exam Vital Signs: Vital Signs Temp Pulse Resp BP Pulse Ox 09/29/19 15:00 36.8 C 63 16 172/89 H 96 - Problem List Review Problem List Initiated/Reviewed/Updated: Yes - My Orders Last 24 Hours: My Active Orders 09/29/19 15:37 Sodium Chloride 0.9% [Saline Flush] 10 ml FLUSH ASDIRECTED PRN Peripheral IV Insertion Adult [OM.PC] Routine - Assessment/Plan Last 24 Hours: My Active Orders 09/29/19 15:37 Sodium Chloride 0.9% [Saline Flush] 10 ml FLUSH ASDIRECTED PRN Peripheral IV Insertion Adult [OM.PC] Routine Plan: [place] 10/325mg 1 every 4-6 hours as needed for pain Flomax 0.4mg 1 daily to assist with passing stone Zofran ODT 4mg 1 every 6 hours as needed for nausea Drink plenty of fluids Strain urine. Collect stones to bring to clinic for analysis Return to ER or contact Carlos or you are having pain that is not amenable to the oral pain medications.
== END 2019-09-29 17:20 | disposition home or self-care (01) ==
LOC: VM.ED 15:00
DX: N13.2 Hydronephrosis with renal and ureteral calculous obstruction (principal); I10 Essential (primary) hypertension; Z79.899 Other long term (current) drug therapy
CPT/HCPCS: 74176; 80053; 81001; 85025; 85610; 96361; 96374; 96375; 99284-25; J1885; J2270; J2405; J7030

== ENCOUNTER 2020-03-07 09:17 | Emergency (ER) | payer OTHER ==
--- NOTE | 2020-03-07 09:26 | EDM.PDOC ---
ED HPI GENERAL MEDICAL PROBLEM - General Stated Complaint: POSSIBLE KIDNEY STONE Time Seen by Provider: 03/07/20 09:26 Source of Information: Reports: Patient History Limitations: Reports: No Limitations - History of Present Illness INITIAL COMMENTS - FREE TEXT/NARRATIVE: Patient comes emergency department today from home with a left flank pain and a possible kidney stone. Patient has a very longstanding history of multiple recurrent kidney stones. He has had multiple urological evaluations and interventions for his multiple recurrent kidney stones. Earlier today he developed left flank pain. He has had nausea and vomiting. His pain is colicky in nature. No fever no chills. No hematuria dysuria or urinary frequency. No other abdominal pain. No weakness dizziness lightheadedness. No pain in his scrotum penis. No discharge. No Covid symptoms no Covid exposure. Left Flank Pain Score (Numeric/FACES): 1 - Related Data Allergies Allergy/AdvReac Type Severity Reaction Status Date / Time No Known Allergies Allergy Verified 03/07/20 23:04 Home Meds: Home Meds FLUoxetine HCl [Fluoxetine HCl] 20 mg PO DAILY 04/18/19 [History] hydroCHLOROthiazide [Hydrochlorothiazide] 25 mg PO DAILY 04/18/19 [History] traZODone HCl [Trazodone HCl] 50 mg PO DAILY 04/18/19 [History] Acetaminophen/HYDROcodone [[place] 325-5 MG] 1 tab PO Q6H PRN #12 tablet 03/07/20 [Rx] Past Medical History HEENT History: Reports: Sinusitis Cardiovascular History: Reports: Hypertension Genitourinary History: Reports: Hydronephrosis, Renal Calculus - Past Surgical History Male Surgical History: Reports: Renal Calculus ED ROS GENERAL - Review of Systems Review Of Systems: Comprehensive ROS is negative, except as noted in HPI. ED EXAM, RENAL/ - Physical Exam Exam: See Below Exam Limited By: No Limitations General Appearance: Alert, WD/WN, Anxious Eye Exam: Bilateral Eye: EOMI, PERRL Respiratory/Chest: No Respiratory Distress, Lungs Clear Cardiovascular: Normal Peripheral Pulses, Regular Rate, Rhythm GI/Abdominal: Normal Bowel Sounds, Soft, Non-Tender, Pelvis Stable (Male) Exam: Deferred Rectal (Males) Exam: Deferred Back Exam: Normal Inspection, Full Range of Motion. No: CVA Tenderness (L), CVA Tenderness (R) Extremities: Normal Inspection, Normal Range of Motion, Non-Tender, Normal Capillary Refill Neurological: Alert, Oriented, Normal Cognition, No Motor/Sensory Deficits Psychiatric: Anxious Skin Exam: Warm, Dry, Intact, Normal Color, No Rash Lymphatic: No Adenopathy Course - Vital Signs Last Recorded V/S: Last Vital Signs Temp 97.1 F 03/07/20 09:20 Pulse 62 03/07/20 09:20 Resp 16 03/07/20 09:20 BP 150/99 H 03/07/20 09:20 Pulse Ox 99 03/07/20 09:20 - Orders/Labs/Meds Labs: Laboratory Tests 03/07/20 03/07/20 03/07/20 Range/Units 09:30 09:30 09:30 WBC 5.4 (4.0-10.0) x10^3/uL RBC 4.75 (4.5-6.0) x10^6/uL Hgb 16.1 (14.0-18.0) g/dL Hct 44.3 (40.0-52.0) % MCV 93.3 H (78.0-93.0) fL MCH 33.9 H (26.0-32.0) pg MCHC 36.3 H (32.0-36.0) g/dL RDW Coeff of Ever 11.5 (10.0-15.0) % Plt Count 202 (130-400) x10^3/uL Neut % (Auto) 53.3 (50.0-80.0) % Lymph % (Auto) 34.0 (25.0-50.0) % [place] % (Auto) 7.9 (2.0-11.0) % Eos % (Auto) 4.1 H (0.0-4.0) % Baso % (Auto) 0.7 (0.2-1.2) % Sodium 136 (136-145) mmol/L Potassium 4.0 (3.5-5.1) mmol/L Chloride 100 (98-107) mmol/L Carbon Dioxide 28 (21-32) mmol/L Anion Gap 12.0 (10-20) mmol/L BUN 15 (7-18) mg/dL Creatinine 1.0 (0.70-1.30) mg/dL Est Cr Clr Drug Dosing TNP Estimated GFR (MDRD) > 60 Glucose 93 (74-106) mg/dL Calcium 9.2 (8.5-10.1) mg/dL Corrected Calcium 9.12 (8.5-10.1) mg/dL Total Bilirubin 0.7 (0.2-1.0) mg/dL AST 35 (15-37) U/L ALT 69 H (16-63) U/L Alkaline Phosphatase 42 L (46-116) U/L Total Protein 7.6 (6.4-8.2) g/dL Albumin 4.1 (3.4-5.0) g/dL Globulin 3.5 Albumin/Globulin Ratio 1.17 Urine Color [place] H (YELLOW) Urine Appearance Turbid H (CLEAR) Urine pH 7.0 (5.0-8.0) Ur Specific [place] 1.020 Urine Protein 100 H (NEGATIVE) mg/dL Urine Glucose (UA) Negative (NEGATIVE) mg/dL Urine Ketones Negative (NEGATIVE) mg/dL Urine Occult Blood Moderate H (NEGATIVE) Urine Nitrite Negative (NEGATIVE) Urine Bilirubin Negative (NEGATIVE) Urine Urobilinogen 0.2 (0.2) EU/dL Ur Leukocyte Esterase Negative (NEGATIVE) Urine RBC Packed H (NOT SEEN) /HPF Urine WBC 0-5 (NOT SEEN) /HPF Ur Squamous Epith Cells Occasional H (NEGATIVE) /HPF Amorphous Sediment Few Urine Bacteria Few H (NEGATIVE) /HPF Urine Mucus Few H (NEGATIVE) /LPF Meds: Medications Discontinued Medications Generic Name Dose Route Start Last Admin Trade Name Freq PRN Reason Stop Dose Admin Hydrocodone Bitart/Acetaminophen 1 packet 03/07/20 11:06 03/07/20 11:29 Take Home: Acetaminophen/Hydrocodone 325-10mg PO 03/07/20 11:07 1 packet ONETIME ONE Administration Diphenhydramine HCl 25 mg 03/07/20 09:28 03/07/20 09:51 Benadryl IVPUSH 03/07/20 09:29 25 mg ONETIME ONE Administration Fentanyl 100 mcg 03/07/20 09:51 03/07/20 09:55 Sublimaze IVPUSH 03/07/20 09:52 100 mcg ONETIME ONE Administration Hydromorphone HCl 1 mg 03/07/20 11:14 03/07/20 11:19 Dilaudid IVPUSH 03/07/20 11:15 1 mg ONETIME ONE Administration Lactated Ringer's 1,000 mls @ 999 mls/hr 03/07/20 09:28 03/07/20 09:51 Ringers, Lactated IV 03/07/20 10:28 999 mls/hr ONETIME ONE Administration Ketorolac Tromethamine 30 mg 03/07/20 09:28 03/07/20 09:50 Toradol IVPUSH 03/07/20 09:29 30 mg ONETIME ONE Administration Ondansetron HCl 4 mg 03/07/20 09:57 03/07/20 10:00 Zofran IV 03/07/20 09:58 4 mg ONETIME ONE Administration Orphenadrine Citrate 60 mg 03/07/20 09:28 Norflex IM 03/07/20 09:29 NOW STA Orphenadrine Citrate 60 mg 03/07/20 09:53 03/07/20 09:55 Norflex IV 03/07/20 09:54 60 mg NOW STA Administration Sodium Chloride 10 ml 03/07/20 09:33 Saline Flush FLUSH ASDIRECTED PRN Keep Vein Open - Re-Assessments/Exams Free Text/Narrative Re-Assessment/Exam: The patient initially had an IV established. Labs are drawn. 1 L LR wide open. Ketorolac 30 mg IV push. Norflex 60 mg IV push. Fentanyl 100 mcg IV push. He was also given 25 mg Benadryl. Laboratory evaluation rather unremarkable He has a normal white blood cell count this comprehensive metabolic panel is unremarkable other than mild elevation of ALT of 69 mild elevation alkaline phosphatase of 42. His urinalysis positive for protein as well as moderate occult blood and packed RBCs. Negative leukocyte esterase and negative nitrates. CT abdomen pelvis shows a 3 mm obstructing calculus in the left ureter where the ureter crosses the iliac with moderate to severe upstream hydroureteronephrosis. Findings are similar to examination in September 29, 2019. He also has some generalized debris and small stones in the proximal left ureter nonobstructing. He did have some improvement of the pain although he is still quite uncomfortable. He was given a dose of Dilaudid IV push. With complete resolution of his pain. Following the above therapy the patient does feel quite a bit better. He is pain-free. He does not want to use any Flomax as he has had multiple kidney stones in the past and does not feel that the Flomax helps with his stones. We will discharge him home with a urinary strainer. Hydrocodone for pain increase fluids. Also recommend contacting urologist primarily because he has quite a bit of stone still left the left kidney. He is comfortable with this plan his questions are answered. Departure - Departure Time of Disposition: 11:06 Disposition: Home, Self-Care 01 Clinical Impression: Kidney stone, Hydronephrosis concurrent with and due to calculi of kidney and ureter - Discharge Information Prescriptions: Acetaminophen/HYDROcodone [[place] 325-5 MG] 1 tab PO Q6H PRN #12 tablet PRN Reason: Pain Instructions: Kidney Stones, [id number] Referrals: Steve Moody MD [Primary Care Provider] - Forms: ED Department Discharge Additional Instructions: Make sure and drink plenty of fluids over the next couple of days. Especially electrolyte-containing material such as Gatorade and/or Powerade. Try to discontinue the usage of any Pop. Tylenol and or ibuprofen as needed for pain. If pain not controlled with above. [place] 1 tablet by mouth every 6 hours as needed for pain. Caution sedation. Starter pack given from the ED and RX sent to [facility]. Return to the ED if new or worsening symptoms. Follow up with PCP in the next 2-3 days if pain continues and see urology.
[2020-03-07] MEDS ORDERED: Lactated Ringers 1,000 ML IV ONE (09:28)
[2020-03-07] MEDS ORDERED: Ketorolac 30 MG/ML SDV IVPUSH ONE (09:28)
[2020-03-07] MEDS ORDERED: diphenhydrAMINE 50 MG/ML SDV IVPUSH ONE (09:28)
[2020-03-07] MEDS ORDERED: Orphenadrine 60 MG/2 ML Inj IM STA (09:28)
[2020-03-07] MEDS ORDERED: Sodium Chloride 0.9% 10 ML Syringe FLUSH PRN (09:33)
[2020-03-07] MEDS ORDERED: fentaNYL 100 MCG/2 ML SDV IVPUSH ONE (09:51)
[2020-03-07] MEDS ORDERED: Orphenadrine 60 MG/2 ML Inj IV STA (09:53)
[2020-03-07] MEDS ORDERED: Ondansetron 4 MG/2 ML SDV IV ONE (09:57)
[2020-03-07 10:14] LABS: CHLORIDE,CL 100 mmol/L (98-107); SODIUM,NA 136 mmol/L (136-145)
--- NOTE | 2020-03-07 10:52 | CT ---
[id number] CT/CT Abdomen Pelvis WO IV EXAM: CT Abdomen Pelvis WO IV CLINICAL DATA: RIGHT FLANK PAIN. COMPARISON STUDY: September 29, 2019. FINDINGS: Lung bases are clear. Punctate mineralized debris versus numerous small stones in the proximal left ureter (series 3 image 58). In addition there is a 3 mm calculus in the left ureter where the ureter crosses the iliac vasculature. Findings result in moderate to severe upstream hydroureteronephrosis. Caliber of dilation is similar to September 29, 2019, where there was also a similar-appearing calculus where the ureter crosses the iliac vasculature. Additional nonobstructing nephrolithiasis bilaterally. Liver demonstrates diffusely decreased density consistent with underlying steatosis. Gallbladder, common bile duct, pancreas, spleen, and adrenal glands are unremarkable. No bowel obstruction or inflammation. Appendix is normal. Spondylosis. No acute fracture or compression deformity. IMPRESSION: 3 mm obstructing calculus in the left ureter where the ureter crosses the iliac vascular injury with moderate to severe upstream hydroureteronephrosis. Findings are similar to examination in September 29, 2019. Additional mineralized debris or small stones in the proximal left ureter not seen previously. Other findings are described above. Jered Dixon MD 03/07/20 1057 Thank you for allowing us to participate in the care of your patient.
[2020-03-07] MEDS ORDERED: Take Home: Acetaminophen/HYDROcodone 325-10 MG, 5 Tab Pack PO ONE (11:06)
[2020-03-07] MEDS ORDERED: HYDROmorphone 1 MG/ML Syringe IVPUSH ONE (11:14)
[2020-03-07 19:29] VITALS: BP 150/99; PULSE 62
== END 2020-03-07 11:35 | disposition home or self-care (01) ==
LOC: VM.ED 09:17
DX: N13.2 Hydronephrosis with renal and ureteral calculous obstruction (principal); I10 Essential (primary) hypertension; Z79.899 Other long term (current) drug therapy
CPT/HCPCS: 74176; 80053; 81001; 85025; 96374; 96375; 99283; 99284-25; A9270-GY; J1170; J1200; J1885; J2360; J2405; J3010; J7120

== ENCOUNTER 2020-03-07 22:04 | Emergency (ER) | payer OTHER ==
[2020-03-07] MEDS ORDERED: diphenhydrAMINE 50 MG/ML SDV IVPUSH ONE (22:08)
[2020-03-07] MEDS ORDERED: Sodium Chloride 0.9% 10 ML Syringe FLUSH PRN (22:08)
[2020-03-07] MEDS ORDERED: HYDROmorphone 1 MG/ML Syringe IVPUSH ONE ×2 (22:08→23:12)
[2020-03-07] MEDS ORDERED: Lactated Ringers 1,000 ML IV ONE (22:08)
[2020-03-07 22:49] LABS: CHLORIDE,CL 100 mmol/L (98-107); SODIUM,NA 135 mmol/L (136-145)
[2020-03-07 22:50] LABS: ANION GAP 11.6 mmol/L (10-20)
[2020-03-08 00:11] VITALS: BP 154/94; PULSE 82
[2020-03-08] MEDS ORDERED: diphenhydrAMINE 50 MG/ML SDV IVPUSH ONE (00:44)
[2020-03-08] MEDS ORDERED: Ondansetron 4 MG/2 ML SDV IV ONE (00:44)
[2020-03-08] MEDS ORDERED: HYDROmorphone 0.5 MG/0.5 ML Syringe IV ONE (00:44)
[2020-03-08] MEDS ORDERED: Take Home: Acetaminophen/oxyCODONE 325-5 MG, 5 Tab Pack PO ONE (01:39)
[2020-03-08] MEDS ORDERED: Take Home: Ondansetron 4 MG Tab.DIS, 2 Tab Pack PO ONE (01:39)
--- NOTE | 2020-03-08 01:41 | EDM.PDOC ---
ED HPI GENERAL MEDICAL PROBLEM - General Chief Complaint: Flank Pain Stated Complaint: KIDNEY STONE Time Seen by Provider: 03/07/20 22:10 Source of Information: Reports: Patient History Limitations: Reports: No Limitations - History of Present Illness INITIAL COMMENTS - FREE TEXT/NARRATIVE: This patient comes emergency department today for the second time today with complaint of left flank pain. Please see my note earlier today. This patient has a longstanding history of recurrent multiple kidney stones. He was seen emergency department received IV therapy and medications had good pain relief at home he did try the hydrocodone at home but did not do much for his pain. His pain is still quite unrelenting on the right. To the point where he is nauseated and vomited a couple times. No chills. No abdominal pain other than his left lateral flank. The pain has been down a little bit and obviously for the kidneys and his mood. He has no hematuria dysuria or urinary frequency. No black or tarry stools. Weakness lightheadedness none. No covid exposure no covid symptoms. Treatments USER EXPERIENCE RESEARCHER: Reports: Other Medication(s) Other Treatments USER EXPERIENCE RESEARCHER: Hydrocodone Left Flank Pain Pain Score (Numeric/FACES): 9 - Related Data Allergies Allergy/AdvReac Type Severity Reaction Status Date / Time No Known Allergies Allergy Verified 03/07/20 23:04 Home Meds: Home Meds FLUoxetine HCl [Fluoxetine HCl] 20 mg PO DAILY 04/18/19 [History] hydroCHLOROthiazide [Hydrochlorothiazide] 25 mg PO DAILY 04/18/19 [History] traZODone HCl [Trazodone HCl] 50 mg PO DAILY 04/18/19 [History] Acetaminophen/HYDROcodone [[place] 325-5 MG] 1 tab PO Q6H PRN #12 tablet 03/07/20 [Rx] oxyCODONE HCl/Acetaminophen [Oxycodone-Acetaminophen 5-325] 1 each PO Q6HR PRN #12 tablet 03/09/20 [Rx] Past Medical History HEENT History: Reports: Sinusitis Cardiovascular History: Reports: Hypertension Genitourinary History: Reports: Hydronephrosis, Renal Calculus - Past Surgical History Male Surgical History: Reports: Renal Calculus Social & Family History - Tobacco Use Tobacco Use Status *Q: Current Status Unknown ED ROS GENERAL - Review of Systems Review Of Systems: Comprehensive ROS is negative, except as noted in HPI. ED EXAM, RENAL/ - Physical Exam Exam: See Below Exam Limited By: No Limitations General Appearance: Alert, WD/WN, Moderate Distress Eye Exam: Bilateral Eye: EOMI, PERRL Ears: Normal External Exam Nose: Normal Inspection Throat/Mouth: Normal Inspection Head: Atraumatic, Normocephalic Neck: Normal Inspection, Supple, Non-Tender Respiratory/Chest: No Respiratory Distress, Lungs Clear, Normal Breath Sounds, Chest Non-Tender Cardiovascular: Normal Peripheral Pulses, Regular Rate, Rhythm GI/Abdominal: Normal Bowel Sounds, Soft, Non-Tender (Male) Exam: Deferred Rectal (Males) Exam: Deferred Back Exam: Normal Inspection, Full Range of Motion Extremities: Normal Inspection, Normal Range of Motion, Non-Tender, Normal C apillary Refill Neurological: Alert, Oriented, Normal Cognition, No Motor/Sensory Deficits Psychiatric: Normal Affect, Normal Mood Skin Exam: Warm, Intact, Diaphoretic, Pallor Course - Vital Signs Last Recorded V/S: Last Vital Signs Temp 97.2 F 03/07/20 23:56 Pulse 82 03/07/20 23:56 Resp 17 03/07/20 23:56 BP 154/94 H 03/07/20 23:56 Pulse Ox 98 03/07/20 23:56 - Orders/Labs/Meds Labs: Laboratory Tests 03/07/20 03/07/20 Range/Units 22:30 22:30 WBC 8.9 (4.0-10.0) x10^3/uL RBC 4.30 L (4.5-6.0) x10^6/uL Hgb 14.4 D (14.0-18.0) g/dL Hct 40.3 (40.0-52.0) % MCV 93.7 H (78.0-93.0) fL MCH 33.5 H (26.0-32.0) pg MCHC 35.7 (32.0-36.0) g/dL RDW Coeff of Ever 11.3 (10.0-15.0) % Plt Count 186 (130-400) x10^3/uL Neut % (Auto) 80.9 H (50.0-80.0) % Lymph % (Auto) 11.5 L (25.0-50.0) % [place] % (Auto) 5.9 (2.0-11.0) % Eos % (Auto) 1.4 (0.0-4.0) % Baso % (Auto) 0.3 (0.2-1.2) % Sodium 135 L (136-145) mmol/L Potassium 3.6 (3.5-5.1) mmol/L Chloride 100 (98-107) mmol/L Carbon Dioxide 27 (21-32) mmol/L Anion Gap 11.6 (10-20) mmol/L BUN 18 (7-18) mg/dL Creatinine 1.6 H (0.70-1.30) mg/dL Est Cr Clr Drug Dosing TNP Estimated GFR (MDRD) 48 Glucose 120 H (74-106) mg/dL Calcium 8.8 (8.5-10.1) mg/dL Meds: Medications Discontinued Medications Generic Name Dose Route Start Last Admin Trade Name Freq PRN Reason Stop Dose Admin Diphenhydramine HCl 25 mg 03/07/20 22:08 03/07/20 22:19 Benadryl IVPUSH 03/07/20 22:09 25 mg ONETIME ONE Administration Diphenhydramine HCl 25 mg 03/08/20 00:44 03/08/20 00:51 Benadryl IVPUSH 03/08/20 00:45 25 mg ONETIME ONE Administration Hydromorphone HCl 1 mg 03/07/20 22:08 03/07/20 22:19 Dilaudid IVPUSH 03/07/20 22:09 1 mg ONETIME ONE Administration Hydromorphone HCl 1 mg 03/07/20 23:12 03/07/20 23:22 Dilaudid IVPUSH 03/07/20 23:13 1 mg ONETIME ONE Administration Hydromorphone HCl 0.5 mg 03/08/20 00:44 03/08/20 00:51 Dilaudid IV 03/08/20 00:45 0.5 mg ONETIME ONE Administration Lactated Ringer's 1,000 mls @ 999 mls/hr 03/07/20 22:08 03/07/20 22:15 Ringers, Lactated IV 03/07/20 23:08 999 mls/hr ONETIME ONE Administration Ondansetron HCl 4 mg 03/08/20 00:44 03/08/20 00:51 Zofran IV 03/08/20 00:45 4 mg ONETIME ONE Administration Ondansetron HCl 1 packet 03/08/20 01:39 03/08/20 01:45 Take Home: Ondansetron Odt 4 Mg, 2 Tab Pack PO 03/08/20 01:40 1 packet ONETIME ONE Administration Oxycodone/Acetaminophen 1 packet 03/08/20 01:39 03/08/20 01:45 Take Home: Acetamin/Oxycodon 325-5 Mg, 5 Pack PO 03/08/20 01:40 1 packet ONETIME ONE Administration Sodium Chloride 10 ml 03/07/20 22:08 Saline Flush FLUSH ASDIRECTED PRN Keep Vein Open - Re-Assessments/Exams Free Text/Narrative Re-Assessment/Exam: IV was established. LR 1 L wide open. Patient was given Dilaudid and Benadryl for pain and nausea as well as Zofran. CBC unremarkable. BMP does show a small elevation in his creatinine. Patient continued to have quite a bit of pain. He received multiple doses of Dilaudid eventually he was pain-free. He had some recurrence of nausea and was given repeat doses of Zofran and Benadryl for nausea and vomiting. Eventually the patient was pain-free and he was quite comfortable. He was monitored in the emergency department for multiple hours. I did offer obs ervation to control his pain to ensure that he is comfortable although he denied this and would like to go home. We will discharge him home with Percocets for pain. He does not really like the hydrocodone as they give him a headache and make him feel quite uncomfortable. We will have him contact his urologist in the morning as he has quite a bit of issues with his chronic kidney stones. He is comfortable with this plan and his questions were answered. Departure - Departure Time of Disposition: 01:38 Disposition: Home, Self-Care 01 Clinical Impression: Renal colic on left side - Discharge Information Prescriptions: oxyCODONE HCl/Acetaminophen [Oxycodone-Acetaminophen 5-325] 1 each PO Q6HR PRN #12 tablet PRN Reason: Pain Instructions: Kidney Stones, [id number], Pain Medicine Instructions, [id number] Referrals: Steve Moody MD [Primary Care Provider] - Forms: ED Department Discharge Additional Instructions: Home rest tonight. Contact Dr. Courtney office in the morning. Try the Percocets, 1 tablet every 6 hrs with food as needed for pain. Caution sedation. Do not take with the hydrocodone given previously. Starter pack given from the ED. Zofran 1 tablet every 6 hrs as needed for nausea. Starter pack from the ED. Return to the ED if new or worsening symptoms. Sepsis Event Note (ED) - Evaluation Sepsis Screening Result: No Definite Risk
== END 2020-03-08 01:52 | disposition home or self-care (01) ==
LOC: VM.ED 22:04
DX: N23 Unspecified renal colic (principal); I10 Essential (primary) hypertension; Z79.899 Other long term (current) drug therapy
CPT/HCPCS: 36415; 80048; 85025; 96374; 96375; 96376; 99284; A9270; J1170; J1200; J2405; J7120

== ENCOUNTER 2020-08-20 12:12 | Emergency (ER) | payer OTHER ==
[2020-08-20] MEDS ORDERED: Ketorolac 30 MG/ML SDV IVPUSH ONE (12:35)
[2020-08-20] MEDS ORDERED: Sodium Chloride 0.9% 1,000 ML IV ONE (12:35)
[2020-08-20] MEDS ORDERED: Sodium Chloride 0.9% 10 ML Syringe FLUSH PRN (12:35)
[2020-08-20] MEDS ORDERED: Tamsulosin 0.4 MG Cap.ER PO ONE (12:36)
[2020-08-20] MEDS ORDERED: Ondansetron 8 MG in Sodium Chloride 0.9% 100 ML IV ONE (12:36)
--- NOTE | 2020-08-20 12:44 | EDM.PDOC ---
ED HPI GENERAL MEDICAL PROBLEM - General Chief Complaint: Abdominal Pain Stated Complaint: PAIN LT BACK-KIDNEY STONE Time Seen by Provider: 08/20/20 12:15 Source of Information: Reports: Patient History Limitations: Reports: No Limitations - History of Present Illness INITIAL COMMENTS - FREE TEXT/NARRATIVE: Patient comes into the emergency department complaint of left flank pain. Patient does have a longstanding history of kidney stones. He also has had stenting placed in that left ureter. Patient states that he developed pain approximately 1 week ago he normally is able to wait it out and wait for the kidney stone to pass however he states that it has progressively gotten worse. He also has noticed a decrease in the amount of urinary output that he has been producing. He states that he does have a significant amount of pain and discomfort on the left side. Onset: Gradual Duration: Constant, Getting Worse Location: Reports: Abdomen Quality: Reports: Ache, Burning, Stabbing, Throbbing Severity: Moderate Improves with: Reports: None Worsens with: Reports: None Context: Reports: Activity Associated Symptoms: Reports: No Other Symptoms - Related Data Allergies Allergy/AdvReac Type Severity Reaction Status Date / Time No Known Allergies Allergy Verified 03/07/20 23:04 Home Meds: Home Meds FLUoxetine HCl [Fluoxetine HCl] 20 mg PO DAILY 04/18/19 [History] hydroCHLOROthiazide [Hydrochlorothiazide] 25 mg PO DAILY 04/18/19 [History] traZODone HCl [Trazodone HCl] 50 mg PO DAILY 04/18/19 [History] Acetaminophen/HYDROcodone [[place] 325-5 MG] 1 tab PO Q6H PRN #12 tablet 03/07/20 [Rx] oxyCODONE HCl/Acetaminophen [Oxycodone-Acetaminophen 5-325] 1 each PO Q6HR PRN #12 tablet 03/09/20 [Rx] Ketorolac [Toradol] 10 mg PO TID PRN #15 tab 08/20/20 [Rx] Tamsulosin HCl [Flomax] 0.4 mg PO DAILY #14 cap.er.24h 08/20/20 [Rx] Past Medical History HEENT History: Reports: Sinusitis Cardiovascular History: Reports: Hypertension Genitourinary History: Reports: Hydronephrosis, Renal Calculus - Past Surgical History Male Surgical History: Reports: Renal Calculus ED ROS GENERAL - Review of Systems Review Of Systems: Comprehensive ROS is negative, except as noted in HPI. Constitutional: Reports: No Symptoms HEENT: Reports: No Symptoms Respiratory: Reports: No Symptoms Cardiovascular: Reports: No Symptoms Endocrine: Reports: No Symptoms GI/Abdominal: Reports: No Symptoms : Reports: No Symptoms Musculoskeletal: Reports: No Symptoms Skin: Reports: No Symptoms Neurological: Reports: No Symptoms Psychiatric: Reports: No Symptoms ED EXAM, GENERAL - Physical Exam Exam: See Below Exam Limited By: No Limitations General Appearance: Alert, WD/WN, No Apparent Distress Eye Exam: Bilateral Eye: EOMI, PERRL Head: Atraumatic, Normocephalic Neck: Normal Inspection, Supple, Non-Tender Respiratory/Chest: No Respiratory Distress, Lungs Clear, Normal Breath Sounds, No Accessory Muscle Use, Chest Non-Tender Cardiovascular: Normal Peripheral Pulses, Regular Rate, Rhythm, No Edema, No Rub GI/Abdominal: Normal Bowel Sounds, Soft, Non-Tender (Male) Exam: No Hernia, Normal Inspection, Normal Prostate Rectal (Males) Exam: Normal Exam Back Exam: Normal Inspection, Full Range of Motion, CVA Tenderness (L) Extremities: Normal Inspection, Normal Range of Motion, Normal Capillary Refill Neurological: Alert, Oriented, CN II-XII Intact Course - Orders/Labs/Meds Orders: Active Orders 24 hr Category Date Time Status Ondansetron [Zofran ODT] Med 08/20/20 14:15 Ordered 4 mg PO Q8H Sodium Chloride 0.9% [Saline Flush] Med 08/20/20 12:35 Ordered 10 ml FLUSH ASDIRECTED PRN Peripheral IV Insertion Adult [OM.PC] Stat Oth 08/20/20 12:35 Ordered Medication Orders Ondansetron HCl (Ondansetron 4 Mg Tab.Dis) 4 mg PO Q8H PEEWEE Sodium Chloride (Sodium Chloride 0.9% 10 Ml Syringe) 10 ml FLUSH ASDIRECTED PRN PRN Reason: Keep Vein Open Labs: Laboratory Tests 08/20/20 08/20/20 08/20/20 Range/Units 12:30 12:30 13:00 WBC 6.0 (4.0-10.0) x10^3/uL RBC 4.90 (4.5-6.0) x10^6/uL Hgb 16.5 D (14.0-18.0) g/dL Hct 45.7 (40.0-52.0) % MCV 93.3 H (78.0-93.0) fL MCH 33.7 H (26.0-32.0) pg MCHC 36.1 H (32.0-36.0) g/dL RDW Coeff of Ever 12.6 (10.0-15.0) % Plt Count 214 (130-400) x10^3/uL Neut % (Auto) 46.0 L (50.0-80.0) % Lymph % (Auto) 38.8 (25.0-50.0) % [place] % (Auto) 10.6 (2.0-11.0) % Eos % (Auto) 3.9 (0.0-4.0) % Baso % (Auto) 0.7 (0.2-1.2) % Sodium 138 (136-145) mmol/L Potassium 3.7 (3.5-5.1) mmol/L Chloride 100 (98-107) mmol/L Carbon Dioxide 28 (21-32) mmol/L Anion Gap 13.7 (5-15) mmol/L BUN 17 (7-18) mg/dL Creatinine 1.3 (0.70-1.30) mg/dL Est Cr Clr Drug Dosing TNP Estimated GFR (MDRD) > 60 Glucose 73 (70-99) mg/dL Calcium 9.6 (8.5-10.1) mg/dL Corrected Calcium 9.4 (8.5-10.1) mg/dL Total Bilirubin 0.6 (0.2-1.0) mg/dL AST 30 (15-37) U/L ALT 60 (16-63) U/L Alkaline Phosphatase 45 L (46-116) U/L Total Protein 8.1 (6.4-8.2) g/dL Albumin 4.2 (3.4-5.0) g/dL Globulin 3.9 Albumin/Globulin Ratio 1.08 Urine Color Yellow (YELLOW) Urine Appearance Clear (CLEAR) Urine pH 7.5 (5.0-8.0) Ur Specific [place] 1.020 Urine Protein Negative (NEGATIVE) mg/dL Urine Glucose (UA) Negative (NEGATIVE) mg/dL Urine Ketones Negative (NEGATIVE) mg/dL Urine Occult Blood Trace-intact H (NEGATIVE) Urine Nitrite Negative (NEGATIVE) Urine Bilirubin Negative (NEGATIVE) Urine Urobilinogen 0.2 (0.2) EU/dL Ur Leukocyte Esterase Negative (NEGATIVE) Urine RBC 0-5 (NOT SEEN) /HPF Urine WBC 0-5 (NOT SEEN) /HPF Ur Squamous Epith Cells Not seen (NOT SEEN) /HPF Urine Bacteria Rare (NOT SEEN) /HPF Urine Mucus Occasional H (NOT SEEN) /LPF Meds: Medications Generic Name Dose Route Start Last Admin Trade Name Freq PRN Reason Stop Dose Admin Ondansetron HCl 4 mg 08/20/20 14:15 Ondansetron 4 Mg Tab.Dis PO Q8H PEEWEE Sodium Chloride 10 ml 08/20/20 12:35 Sodium Chloride 0.9% 10 Ml Syringe FLUSH ASDIRECTED PRN Keep Vein Open Discontinued Medications Generic Name Dose Route Start Last Admin Trade Name Freq PRN Reason Stop Dose Admin Hydromorphone HCl 1 mg 08/20/20 13:41 08/20/20 13:48 Hydromorphone 1 Mg/Ml Syringe IVPUSH 08/20/20 13:42 1 mg ONETIME ONE Administration Sodium Chloride 1,000 mls @ 1,000 mls/hr 08/20/20 12:35 08/20/20 13:14 Normal Saline IV 08/20/20 13:34 1,000 mls/hr ONETIME ONE Administration Ondansetron HCl 8 mg/ Sodium 104 mls @ 400 mls/hr 08/20/20 12:36 08/20/20 13:23 Chloride IV 08/20/20 12:51 Not Given ONETIME ONE Ketorolac Tromethamine 30 mg 08/20/20 12:35 08/20/20 13:13 Ketorolac 30 Mg/Ml Sdv IVPUSH 08/20/20 12:36 30 mg ONETIME ONE Administration Ondansetron HCl 4 mg 08/20/20 12:46 08/20/20 13:14 Ondansetron 4 Mg/2 Ml Sdv IVPUSH 08/20/20 12:47 4 mg ONETIME ONE Administration Tamsulosin HCl 0.4 mg 08/20/20 12:36 Tamsulosin 0.4 Mg Cap.Er PO 08/20/20 12:37 ONETIME ONE Departure - Departure Time of Disposition: 14:20 Disposition: Home, Self-Care 01 Condition: Good Clinical Impression: Kidney stone - Discharge Information *PRESCRIPTION DRUG MONITORING PROGRAM REVIEWED*: Not Applicable *COPY OF PRESCRIPTION DRUG MONITORING REPORT IN PATIENT CODY: Not Applicable Prescriptions: Tamsulosin HCl [Flomax] 0.4 mg PO DAILY #14 cap.er.24h Ketorolac [Toradol] 10 mg PO TID PRN #15 tab PRN Reason: Pain Instructions: Kidney Stones, Tamsulosin capsules, Ketorolac Oral Tablets Forms: ED Department Discharge Additional Instructions: 1. rest 2. Can take Toradol as needed for pain and discomfort as prescribed 3. Take flomax for the next 14 days. 4. Percocet 325mg script sent in hand 5. Zofran script sent to the pharmacy 6. Use a strainer in an attempt to collect the stone. Please bring stone in immediately if collected for urinalysis. 7. Activity and diet as tolerated 8. Can use Ibuprofen or Tylenol for any fever or discomfort. Avoid Ibuprofen when needing to use Toradol 9. Follow up with your PCP or return if symptoms progress or worsen 10. Education provided to you regarding your illness and medications prescribed 11. Call with any questions or concerns The medication you have been prescribed today has a warning it may inhibit your response or action time. It is advised you do not drive or operate any device while using this medications. It is also advised this medication can not be shared or given to other individuals for it is against the law and one may be punished in the court of law. - My Orders Last 24 Hours: My Active Orders 08/20/20 12:35 Sodium Chloride 0.9% [Saline Flush] 10 ml FLUSH ASDIRECTED PRN Peripheral IV Insertion Adult [OM.PC] Stat 08/20/20 14:15 Ondansetron [Zofran ODT] 4 mg PO Q8H - Assessment/Plan Last 24 Hours: My Active Orders 08/20/20 12:35 Sodium Chloride 0.9% [Saline Flush] 10 ml FLUSH ASDIRECTED PRN Peripheral IV Insertion Adult [OM.PC] Stat 08/20/20 14:15 Ondansetron [Zofran ODT] 4 mg PO Q8H Assessment:: 1. left flank pain 2. kidney stone Plan: 1. Labs completed in the ER. Results reviewed with the patient 2. CT scan completed in the ER. Results reviewed with the patient 3. IV initiated in the emergency department 4. IV fluids provided 5. Pain medication given for severe pain and discomfort-Toradol ordered 6. Zofran given in the ER to help with nausea 7. Flomax given in ER. 8. Patient will be transferred to a higher level of care needing further medical and/or surgical interventions 9. Patient and nursing staff was updated regarding the plan of care 10. Patient and family are agreeable to the above plan of care 11. All questions and concerns were addressed with the patient and family prior to discharge
[2020-08-20] MEDS ORDERED: Ondansetron 4 MG/2 ML SDV IVPUSH ONE (12:46)
[2020-08-20 13:13] LABS: ANION GAP 13.7 mmol/L (5-15); CHLORIDE,CL 100 mmol/L (98-107); SODIUM,NA 138 mmol/L (136-145)
[2020-08-20] MEDS ORDERED: HYDROmorphone 1 MG/ML Syringe IVPUSH ONE (13:41)
--- NOTE | 2020-08-20 14:01 | CT ---
[id number] CT/CT Renal Stone Protocol EXAM: CT Renal Stone Protocol CLINICAL DATA: LEFT-SIDED FLANK PAIN. COMPARISON STUDY: None. FINDINGS: Lung bases are clear. 4 mm stone within the distal third of the left ureter resulting in moderate left hydroureteronephrosis. Additional nonobstructing renal calculi bilaterally. The liver, spleen, pancreas, adrenal glands are unremarkable. No bowel obstruction or inflammation. Colonic diverticulosis without evidence of acute diverticulitis. The appendix is visualized and appears normal. No lymphadenopathy, free fluid, or pneumoperitoneum. Scattered changes of spondylosis the spine. No fracture or osseous lesion. IMPRESSION: 1. 4 mm stone within the distal third of the left ureter resulting in moderate left hydroureteronephrosis. Marty Drew DO 08/20/20 0831 Thank you for allowing us to participate in the care of your patient.
[2020-08-20] MEDS ORDERED: Ondansetron 4 MG Tab.DIS PO SCH (14:15)
[2020-08-20 17:44] VITALS: BP 181/102; PULSE 70
== END 2020-08-20 14:07 | disposition home or self-care (01) ==
LOC: VM.ED 12:12
DX: N20.0 Calculus of kidney (principal); I10 Essential (primary) hypertension
CPT/HCPCS: 74176; 80053; 81001; 85025; 96374; 96375; 99284; 99284-25; A9270-GY; J1170; J1885; J2405; J7030

== ENCOUNTER 2020-12-24 12:08 | Emergency (ER) | payer OTHER ==
[2020-12-24] MEDS ORDERED: Sodium Chloride 0.9% 1,000 ML IV ONE (12:50)
[2020-12-24] MEDS ORDERED: Ketorolac 30 MG/ML SDV IVPUSH ONE (12:50)
[2020-12-24] MEDS ORDERED: Ondansetron 4 MG/2 ML SDV IVPUSH ONE (12:56)
--- NOTE | 2020-12-24 13:07 | EDM.PDOC ---
ED HPI GENERAL MEDICAL PROBLEM - General Chief Complaint: Flank Pain Stated Complaint: Flank Pain Time Seen by Provider: 12/24/20 12:30 Source of Information: Reports: Patient History Limitations: Reports: No Limitations - History of Present Illness INITIAL COMMENTS - FREE TEXT/NARRATIVE: Shai is a 40 year old male who presents with a 2 day history of left flank pain. Admits has been getting worse today. Has long standing history of kidney stones. Is noting hesitancy with urination. No obvious blood. Does have Flomax at home to use with onset of pain, has not taken any. Did take ibuprofen without relief. No fevers. No nausea/vomiting. Does state that stools vary between constipation and diarrhea. No cough, chest congestion or sore throat. REview of his chart shows multiple visits for stones. Admits has not been drinking much for fluids as of late and believes has led to another one. Has had multiple procedures for these in the past as well. Onset: Gradual Duration: Day(s):, Getting Worse Location: Reports: Abdomen, Back Quality: Reports: Sharp Severity: Moderate Improves with: Reports: None Associated Symptoms: Reports: Nausea/Vomiting. 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er.24h 08/20/20 [Rx] Past Medical History HEENT History: Reports: Sinusitis Cardiovascular History: Reports: Hypertension Genitourinary History: Reports: Hydronephrosis, Renal Calculus - Past Surgical History Male Surgical History: Reports: Renal Calculus Social & Family History - Tobacco Use Tobacco Use Status *Q: Unknown Ever Used Tobacco ED ROS GENERAL - Review of Systems Review Of Systems: See Below Constitutional: Reports: Malaise. Denies: Fever, Chills, Weakness, Fatigue, Dec reased Appetite HEENT: Denies: Ear Pain, Sinus Problem, Throat Pain Respiratory: Denies: Shortness of Breath, Cough Cardiovascular: Denies: Chest Pain, Edema, Lightheadedness Endocrine: Denies: Fatigue GI/Abdominal: Reports: Abdominal Pain, Constipation, Diarrhea, Nausea. Denies: Decreased Appetite, Vomiting : Reports: Flank Pain, Urinary Retention. Denies: Hematuria Musculoskeletal: Reports: No Symptoms Skin: Reports: No Symptoms Neurological: Reports: No Symptoms ED EXAM, RENAL/ - Physical Exam Exam: See Below Exam Limited By: No Limitations General Appearance: Alert, WD/WN, No Apparent Distress Ears: Normal External Exam, Normal TMs Nose: Normal Inspection, Normal Mucosa, No Blood Throat/Mouth: Normal Inspection, Normal Oropharynx Head: Normocephalic Neck: Normal Inspection, Supple, Non-Tender Respiratory/Chest: No Respiratory Distress, Lungs Clear, Normal Breath Sounds Cardiovascular: Regular Rate, Rhythm GI/Abdominal: Normal Bowel Sounds, Soft Back Exam: Normal Inspection, CVA Tenderness (L) Extremities: Normal Inspection, No Pedal Edema Neurological: Alert, Oriented Skin Exam: Warm, Dry Course - Vital Signs Last Recorded V/S: Last Vital Signs Temp 97.3 F 12/24/20 13:30 Pulse 67 12/24/20 13:30 Resp 17 12/24/20 13:30 BP 161/92 H 12/24/20 13:30 Pulse Ox 98 12/24/20 13:30 - Orders/Labs/Meds Labs: Laboratory Tests 12/24/20 Range/Units 12:40 Urine Color Yellow (YELLOW) Urine Appearance Clear (CLEAR) Urine pH 7.0 (5.0-8.0) Ur Specific [place] 1.025 Urine Protein Negative (NEGATIVE) mg/dL Urine Glucose (UA) Negative (NEGATIVE) mg/dL Urine Ketones Negative (NEGATIVE) mg/dL Urine Occult Blood Small H (NEGATIVE) Urine Nitrite Negative (NEGATIVE) Urine Bilirubin Negative (NEGATIVE) Urine Urobilinogen 0.2 (0.2) EU/dL Ur Leukocyte Esterase Negative (NEGATIVE) Urine RBC 5-10 H (NOT SEEN) /HPF Urine WBC 0-5 (NOT SEEN) /HPF Ur Squamous Epith Cells Not seen (NOT SEEN) /HPF Urine Bacteria Rare (NOT SEEN) /HPF Urine Mucus Rare H (NOT SEEN) /LPF Meds: Medications Discontinued Medications Generic Name Dose Route Start Last Admin Trade Name Freq PRN Reason Stop Dose Admin Hydrocodone Bitart/Acetaminophen 1 tab 12/24/20 15:10 Acetaminophen/Hydrocodone 325-10 Mg Tab PO 12/24/20 15:11 ONETIME ONE Sodium Chloride 1,000 mls @ 999 mls/hr 12/24/20 12:50 12/24/20 12:52 Normal Saline IV 12/24/20 13:50 999 mls/hr ONETIME ONE Administration Ketorolac Tromethamine 30 mg 12/24/20 12:50 12/24/20 12:55 Ketorolac 30 Mg/Ml Sdv IVPUSH 12/24/20 12:51 30 mg ONETIME ONE Administration Ondansetron HCl 4 mg 12/24/20 12:56 12/24/20 13:10 Ondansetron 4 Mg/2 Ml Sdv IVPUSH 12/24/20 12:57 4 mg ONETIME ONE Administration - Re-Assessments/Exams Free Text/Narrative Re-Assessment/Exam: 12/24/20 1400-Patient resting comfortably. Does feel Toradol is helping his jigar n. Waiting on CT scan to be done. 1500-Called radiologist and are aware CT is pending to be read. 1515-Patient relates pain is getting more severe again in his groin/LLQ. Will give norco. 1520-CT report received. Does have a 4 by 4 mm obstructing left ureteral calculus. Do note it may be stone yet from July as has similar location and morphology as then. Discussed with patient. Will need to see Dr. Gonzalez again for possible removal. Departure - Departure Time of Disposition: 15:23 Disposition: Home, Self-Care 01 Condition: Fair Clinical Impression: Hydroureteronephrosis, Ureteral calculus - Discharge Information *PRESCRIPTION DRUG MONITORING PROGRAM REVIEWED*: No *COPY OF PRESCRIPTION DRUG MONITORING REPORT IN PATIENT CODY: No Instructions: Kidney Stones, [id number] Referrals: Steve Moody MD [Primary Care Provider] - Forms: ED Department Discharge Additional Instructions: 1. Push fluids 2. Ibuprofen alternating with [place] as needed for pain 3. Start Flomax 4. Will need to contact Dr. Gonzalez's office as may need intervention for removal of this stone. 5. Call with any questions or concerns. Sepsis Event Note (ED) - Focused Exam Vital Signs: Vital Signs Temp Pulse Resp BP Pulse Ox 12/24/20 13:30 97.3 F 67 17 161/92 H 98
[2020-12-24 13:34] VITALS: BP 161/92; PULSE 67
[2020-12-24] MEDS ORDERED: Acetaminophen/HYDROcodone 325-10 MG Tab PO ONE (15:10)
--- NOTE | 2020-12-24 15:16 | CT ---
[id number] CT/CT Renal Stone Protocol EXAM: CT Renal Stone Protocol CLINICAL DATA: LEFT SIDED PAIN, HX OF RENAL STONES COMPARISON STUDY: Multiple priors, most recent from August 20, 2020.. FINDINGS: Hepatomegaly and changes of moderate to advanced steatosis. Gallbladder is contracted limiting evaluation. Pancreas, spleen, and adrenal glands are unremarkable. 4 x 4 millimeter obstructing left ureteral calculus. Calculus is located where the ureter crosses the iliac vasculature (series 2 image 126 and series 3 image 64). Moderate to severe upstream hydroureteronephrosis. Left renal edema and perinephric stranding. Additional bilateral nonobstructing calculi. Largest largest calculus measures approximately 13 x 12 mm and is located in a left inferior pole calyx. Overall stone burden is small to moderate. No evidence of obstructive right uropathy. Diverticulosis. No evidence of acute diverticulitis. No small bowel obstruction or inflammation. Appendix is normal. No lymphadenopathy in the abdomen or pelvis. Advanced L3-4 degenerative disc disease with severe intervertebral disc height loss. Additional changes of spondylosis throughout the lumbar and lower thoracic spine. IMPRESSION: 4 x 4 mm obstructing left ureteral calculus located where the ureter crosses the iliac vasculature. Moderate to severe upstream hydroureteronephrosis. Location and morphology of the calculus is similar in appearance to examination from August 20, 2020. Consider urologic evaluation, as this is possibly a chronically impacted stone. Additional bilateral nonobstructing nephrolithiasis. Overall stone burden is small to moderate. Other findings are described above. Jered Dixon MD 12/24/20 0325 Thank you for allowing us to participate in the care of your patient.
== END 2020-12-24 15:49 | disposition home or self-care (01) ==
LOC: VM.ED 12:08
DX: N13.2 Hydronephrosis with renal and ureteral calculous obstruction (principal); I10 Essential (primary) hypertension; Z79.899 Other long term (current) drug therapy
CPT/HCPCS: 74176; 81001; 96374; 96375; 99284; 99284-25; A9270-GY; J1885; J2405; J7030

== ENCOUNTER 2021-07-28 18:06 | Emergency (ER) | payer OTHER ==
[2021-07-28] MEDS ORDERED: Ketorolac 30 MG/ML SDV IVPUSH ONE (18:22)
[2021-07-28] MEDS ORDERED: Sodium Chloride 0.9% 1,000 ML IV ONE (18:22)
[2021-07-28 18:51] LABS: CHLORIDE,CL 100 mmol/L (98-107); SODIUM,NA 135 mmol/L (136-145)
[2021-07-28 18:52] LABS: ANION GAP 13.8 mmol/L (5-15)
[2021-07-28] MEDS ORDERED: fentaNYL 50 MCG/ML SDV IVPUSH ONE (19:12)
[2021-07-28] MEDS ORDERED: Acetaminophen/oxyCODONE 325-5 MG Tab PO ONE (20:04)
[2021-07-28 20:24] VITALS: BP 118/59; PULSE 96
[2021-07-28] MEDS ORDERED: Tamsulosin 0.4 MG Cap.ER PO ONE (20:26)
[2021-07-28] MEDS ORDERED: Take Home: Acetaminophen/oxyCODONE 325-5 MG, 5 Tab Pack PO ONE (20:27)
== END 2021-07-28 20:35 | disposition home or self-care (01) ==
LOC: VM.ED 18:06
DX: N13.2 Hydronephrosis with renal and ureteral calculous obstruction (principal); I10 Essential (primary) hypertension; Z79.899 Other long term (current) drug therapy
CPT/HCPCS: 36415; 74176; 80053; 81001; 85025; 86140; 87086; 96374; 96375; 99284; 99284-25; A9270-GY; J1885; J3010; J7030

== ENCOUNTER 2022-02-05 08:40 | Emergency (ER) | payer OTHER ==
[2022-02-05 08:52] VITALS: BP 132/97; PULSE 97
[2022-02-05] MEDS ORDERED: Sodium Chloride 0.9% 10 ML Syringe FLUSH PRN (09:04)
[2022-02-05] MEDS ORDERED: Ondansetron 4 MG/2 ML SDV IVPUSH ONE (09:05)
[2022-02-05] MEDS ORDERED: HYDROmorphone 1 MG/ML Syringe IVPUSH ONE (09:05)
[2022-02-05] MEDS ORDERED: Sodium Chloride 0.9% 1,000 ML IV SCH (09:15)
[2022-02-05 09:39] LABS: CHLORIDE,CL 100 mmol/L (98-107); SODIUM,NA 134 mmol/L (136-145)
[2022-02-05 09:40] LABS: ANION GAP 10.9 mmol/L (5-15); ESTIMATED GFR 70 mL/min (>=60)
[2022-02-05] MEDS ORDERED: Acetaminophen/HYDROcodone 325-10 MG Tab PO ONE (10:25)
[2022-02-05] MEDS ORDERED: Ketorolac 15 MG/ML SDV IVPUSH ONE (10:25)
[2022-02-05] MEDS ORDERED: Take Home: Ondansetron 4 MG Tab.DIS, 5 Tab Pack PO ONE (11:06)
[2022-02-05] MEDS ORDERED: Take Home: Acetaminophen/HYDROcodone 325-10 MG, 5 Tab Pack PO ONE (11:06)
[2022-02-05] MEDS ORDERED: Tamsulosin 0.4 MG Cap.ER PO ONE (11:07)
== END 2022-02-05 11:22 | disposition home or self-care (01) ==
LOC: VM.ED 08:40
DX: N13.2 Hydronephrosis with renal and ureteral calculous obstruction (principal); I10 Essential (primary) hypertension; Z79.899 Other long term (current) drug therapy
CPT/HCPCS: 74176; 80053; 81003; 85025; 96361; 96374; 96375; 99284; A9270; J1170; J1885; J2405; J7030; Q0162

== ENCOUNTER 2022-08-05 09:04 | Emergency (ER) | payer OTHER ==
[2022-08-05] MEDS ORDERED: Sodium Chloride 0.9% 1,000 ML IV ONE (09:13)
[2022-08-05] MEDS ORDERED: Ketorolac 30 MG/ML SDV IVPUSH ONE (09:13)
[2022-08-05] MEDS ORDERED: Ondansetron 4 MG/2 ML SDV IVPUSH ONE (09:16)
[2022-08-05] MEDS ORDERED: HYDROmorphone 1 MG/ML Syringe IVPUSH ONE ×2 (09:16→11:41)
[2022-08-05 09:24] LABS: BASOPHILS ABSOLUTE AUTO 0.1 x10^3/uL (0.0-0.2); BASOPHILS PERCENT AUTO 0.5 % (0.2-1.2); EOSINOPHILS PERCENT AUTO 0.4 % (0.0-4.0); HEMATOCRIT 45.4 % (40.0-52.0); HEMOGLOBIN 16.9 g/dL (14.0-18.0); IMMATURE GRAN ABSOLUTE AUTO 0.01 x10^3/uL (0.00-0.07); LYMPHOCYTES ABSOLUTE AUTO 1.6 x10^3/uL (1.0-4.8); LYMPHOCYTES PERCENT AUTO 16.4 % (25.0-50.0); MEAN CORPUSCULAR HEMOGLOBIN 34.1 pg (26.0-32.0); MEAN CORPUSCULAR HGB CONC 37.2 g/dL (32.0-36.0); MEAN CORPUSCULAR VOLUME 91.7 fL (78.0-93.0); MONOCYTES ABSOLUTE AUTO 0.8 x10^3/uL (0.0-0.8); MONOCYTES PERCENT AUTO 8.1 % (2.0-11.0); NEUTROPHILS ABSOLUTE AUTO 7.3 x10^3/uL (1.8-7.7); NEUTROPHILS PERCENT AUTO 74.5 % (50.0-80.0); PLATELET COUNT,PLT 207 x10^3/uL (130-400); RED BLOOD CELL COUNT 4.95 x10^6/uL (4.5-6.0); WHITE BLOOD CELL COUNT,WBC 9.8 x10^3/uL (4.0-10.0)
[2022-08-05 09:28] LABS: BILIRUBIN,URINE NEGATIVE (NEGATIVE); COLOR,URINE YELLOW (YELLOW); GLUCOSE,URINE NEGATIVE (NEGATIVE); KETONES,URINE NEGATIVE (NEGATIVE); LEUKOCYTE ESTERASE,URINE NEGATIVE (NEGATIVE); NITRITE,URINE NEGATIVE (NEGATIVE); OCCULT BLOOD,URINE MODERATE (NEGATIVE); PROTEIN,URINE 30 mg/dL (NEGATIVE); UROBILINOGEN,URINE 0.2 EU/dL (0.2)
[2022-08-05 09:41] LABS: APPEARANCE,URINE SLIGHTLY CLOUDY (CLEAR)
[2022-08-05 09:42] LABS: BACTERIA,URINE RARE /HPF (NOT SEEN); MUCUS,URINE FEW /LPF (NOT SEEN); RBC,URINE 30-40 /HPF (NOT SEEN); WBC,URINE 0-5 /HPF (NOT SEEN)
[2022-08-05 09:42] LABS: A/G RATIO 1.39; ALANINE AMINOTRANSFERASE,ALT 32 U/L (16-63); ALBUMIN 4.6 g/dL (3.4-5.0); ALKALINE PHOSPHATASE 48 U/L (46-116); ANION GAP 16.8 mmol/L (5-15); ASPARTATE AMNIOTRANSFERASE,AST 29 U/L (15-37); BILIRUBIN TOTAL 1.1 mg/dL (0.2-1.0); BLOOD UREA NITROGEN,BUN 16 mg/dL (7-18); C-REACTIVE PROTEIN < 0.2 mg/dL (<=0.9); CALCIUM 10.2 mg/dL (8.5-10.1); CARBON DIOXIDE,CO2 26 mmol/L (21-32); CHLORIDE,CL 94 mmol/L (98-107); CREATININE 1.4 mg/dL (0.70-1.30); ESTIMATED GFR 64 mL/min (>=60); GLUCOSE RANDOM 97 mg/dL (70-99); POTASSIUM,K 3.8 mmol/L (3.5-5.1); PROTEIN TOTAL,TP 7.9 g/dL (6.4-8.2); SODIUM,NA 133 mmol/L (136-145)
[2022-08-05 09:45] VITALS: BP 144/87; PULSE 101
[2022-08-05] MEDS ORDERED: Take Home: Acetaminophen/oxyCODONE 325-5 MG, 5 Tab Pack PO ONE (13:24)
== END 2022-08-05 13:35 | disposition home or self-care (01) ==
LOC: VM.ED 09:04
DX: N13.2 Hydronephrosis with renal and ureteral calculous obstruction (principal); I10 Essential (primary) hypertension; Z79.899 Other long term (current) drug therapy
CPT/HCPCS: 74176; 80053; 81001; 85025; 86140; 96361; 96374; 96375; 96376; 99283; 99284-25; A9270-GY; J1170; J1885; J2405; J7030

== ENCOUNTER 2023-02-14 21:21 | Emergency (ER) | payer OTHER ==
[2023-02-14] MEDS ORDERED: HYDROmorphone 1 MG/ML Syringe IVPUSH ONE ×2 (21:47→22:47)
[2023-02-14] MEDS ORDERED: Sodium Chloride 0.9% 1,000 ML IV ONE (21:47)
[2023-02-14] MEDS ORDERED: Naloxone 0.4 MG/ML SDV IVPUSH PRN (21:47)
[2023-02-14 21:57] LABS: APPEARANCE,URINE CLEAR (CLEAR); BILIRUBIN,URINE NEGATIVE (NEGATIVE); COLOR,URINE LIGHT YELLOW (YELLOW); GLUCOSE,URINE NEGATIVE (NEGATIVE); KETONES,URINE NEGATIVE (NEGATIVE); LEUKOCYTE ESTERASE,URINE NEGATIVE (NEGATIVE); NITRITE,URINE NEGATIVE (NEGATIVE); OCCULT BLOOD,URINE NEGATIVE (NEGATIVE); PROTEIN,URINE NEGATIVE (NEGATIVE); UROBILINOGEN,URINE 0.2 EU/dL (0.2)
[2023-02-14 21:57] LABS: BASOPHILS ABSOLUTE AUTO 0.1 x10^3/uL (0.0-0.2); BASOPHILS PERCENT AUTO 0.9 % (0.2-1.2); EOSINOPHILS ABSOLUTE AUTO 0.2 x10^3/uL (0.0-0.5); EOSINOPHILS PERCENT AUTO 4.1 % (0.0-4.0); HEMATOCRIT 45.7 % (40.0-52.0); HEMOGLOBIN 16.4 g/dL (14.0-18.0); IMMATURE GRAN ABSOLUTE AUTO 0.01 x10^3/uL (0.00-0.07); LYMPHOCYTES ABSOLUTE AUTO 2.5 x10^3/uL (1.0-4.8); LYMPHOCYTES PERCENT AUTO 42.4 % (25.0-50.0); MEAN CORPUSCULAR HGB CONC 35.9 g/dL (32.0-36.0); MEAN CORPUSCULAR VOLUME 94.6 fL (78.0-93.0); MONOCYTES ABSOLUTE AUTO 0.6 x10^3/uL (0.0-0.8); MONOCYTES PERCENT AUTO 9.6 % (2.0-11.0); NEUTROPHILS ABSOLUTE AUTO 2.5 x10^3/uL (1.8-7.7); NEUTROPHILS PERCENT AUTO 42.8 % (50.0-80.0); PLATELET COUNT,PLT 172 x10^3/uL (130-400); RED BLOOD CELL COUNT 4.83 x10^6/uL (4.5-6.0); WHITE BLOOD CELL COUNT,WBC 5.8 x10^3/uL (4.0-10.0)
[2023-02-14 22:13] LABS: A/G RATIO 1.18; ALANINE AMINOTRANSFERASE,ALT 33 U/L (16-63); ALBUMIN 3.9 g/dL (3.4-5.0); ALKALINE PHOSPHATASE 46 U/L (46-116); ANION GAP 13.7 mmol/L (5-15); ASPARTATE AMNIOTRANSFERASE,AST 21 U/L (15-37); BILIRUBIN TOTAL 0.5 mg/dL (0.2-1.0); BLOOD UREA NITROGEN,BUN 13 mg/dL (7-18); C-REACTIVE PROTEIN < 0.50 mg/dL (<=0.50); CARBON DIOXIDE,CO2 26 mmol/L (21-32); CHLORIDE,CL 103 mmol/L (98-107); CREATININE 1.2 mg/dL (0.70-1.30); ESTIMATED GFR 76 mL/min (>=60); GLUCOSE RANDOM 97 mg/dL (70-99); POTASSIUM,K 3.7 mmol/L (3.5-5.1); PROTEIN TOTAL,TP 7.2 g/dL (6.4-8.2); SODIUM,NA 139 mmol/L (136-145)
[2023-02-14] MEDS ORDERED: Tamsulosin 0.4 MG Cap.ER PO ONE (22:34)
[2023-02-14] MEDS ORDERED: Take Home: Acetaminophen/HYDROcodone 325-10 MG, 5 Tab Pack PO ONE (22:34)
[2023-02-15 04:39] VITALS: BP 147/89; PULSE 69
== END 2023-02-14 23:40 | disposition home or self-care (01) ==
LOC: VM.ED 21:21
DX: N20.0 Calculus of kidney (principal); I10 Essential (primary) hypertension; Z79.899 Other long term (current) drug therapy
CPT/HCPCS: 74176; 80053; 81003; 85025; 86140; 96361; 96374; 96376; 99284; 99284-25; A9270-GY; J1170; J7030

== ENCOUNTER 2023-04-15 01:05 | Emergency (ER) | payer BC, OTHER ==
[2023-04-15] MEDS ORDERED: Sodium Chloride 0.9% 1,000 ML IV ONE (01:32)
[2023-04-15] MEDS ORDERED: Ondansetron 4 MG/2 ML SDV IVPUSH ONE (01:32)
[2023-04-15] MEDS ORDERED: HYDROmorphone 1 MG/ML Syringe IVPUSH ONE ×2 (01:32→02:20)
[2023-04-15] MEDS ORDERED: Tamsulosin 0.4 MG Cap.ER PO ONE (01:35)
[2023-04-15 01:53] LABS: BASOPHILS PERCENT AUTO 0.6 % (0.2-1.2); EOSINOPHILS ABSOLUTE AUTO 0.2 x10^3/uL (0.0-0.5); EOSINOPHILS PERCENT AUTO 2.6 % (0.0-4.0); HEMATOCRIT 42.3 % (40.0-52.0); HEMOGLOBIN 14.9 g/dL (14.0-18.0); IMMATURE GRAN ABSOLUTE AUTO 0.01 x10^3/uL (0.00-0.07); LYMPHOCYTES ABSOLUTE AUTO 2.4 x10^3/uL (1.0-4.8); LYMPHOCYTES PERCENT AUTO 34.8 % (25.0-50.0); MEAN CORPUSCULAR HEMOGLOBIN 33.3 pg (26.0-32.0); MEAN CORPUSCULAR HGB CONC 35.2 g/dL (32.0-36.0); MEAN CORPUSCULAR VOLUME 94.4 fL (78.0-93.0); MONOCYTES ABSOLUTE AUTO 0.8 x10^3/uL (0.0-0.8); MONOCYTES PERCENT AUTO 11.3 % (2.0-11.0); NEUTROPHILS ABSOLUTE AUTO 3.6 x10^3/uL (1.8-7.7); NEUTROPHILS PERCENT AUTO 50.6 % (50.0-80.0); PLATELET COUNT,PLT 170 x10^3/uL (130-400); RED BLOOD CELL COUNT 4.48 x10^6/uL (4.5-6.0)
[2023-04-15 02:07] LABS: A/G RATIO 1.25; ALANINE AMINOTRANSFERASE,ALT 41 U/L (16-63); ALBUMIN 3.5 g/dL (3.4-5.0); ALKALINE PHOSPHATASE 32 U/L (46-116); ANION GAP 11.9 mmol/L (5-15); ASPARTATE AMNIOTRANSFERASE,AST 20 U/L (15-37); BILIRUBIN TOTAL 0.7 mg/dL (0.2-1.0); BLOOD UREA NITROGEN,BUN 18 mg/dL (7-18); C-REACTIVE PROTEIN < 0.50 mg/dL (<=0.50); CARBON DIOXIDE,CO2 29 mmol/L (21-32); CHLORIDE,CL 100 mmol/L (98-107); CREATININE 1.5 mg/dL (0.70-1.30); EST CRCL DRUG DOSING (CG) 81.24 mL/min; ESTIMATED GFR 59 mL/min (>=60); GLUCOSE RANDOM 89 mg/dL (70-99); POTASSIUM,K 3.9 mmol/L (3.5-5.1); PROTEIN TOTAL,TP 6.3 g/dL (6.4-8.2); SODIUM,NA 137 mmol/L (136-145)
[2023-04-15 02:11] LABS: APPEARANCE,URINE CLEAR (CLEAR); BILIRUBIN,URINE NEGATIVE (NEGATIVE); COLOR,URINE YELLOW (YELLOW); GLUCOSE,URINE NEGATIVE (NEGATIVE); KETONES,URINE NEGATIVE (NEGATIVE); LEUKOCYTE ESTERASE,URINE NEGATIVE (NEGATIVE); NITRITE,URINE NEGATIVE (NEGATIVE); OCCULT BLOOD,URINE TRACE-INTACT (NEGATIVE); PROTEIN,URINE NEGATIVE (NEGATIVE); UROBILINOGEN,URINE 0.2 EU/dL (0.2)
[2023-04-15 02:16] LABS: BACTERIA,URINE RARE /HPF (NOT SEEN); MUCUS,URINE NOT SEEN /LPF (NOT SEEN); RBC,URINE 0-5 /HPF (NOT SEEN); SQUAMOUS EPITHELIAL CELLS,UR NOT SEEN /HPF (NOT SEEN); WBC,URINE NOT SEEN /HPF (NOT SEEN)
[2023-04-15] MEDS ORDERED: Take Home: Acetaminophen/HYDROcodone 325-10 MG, 5 Tab Pack PO ONE (02:20)
[2023-04-15] MEDS ORDERED: Naloxone 0.4 MG/ML SDV IVPUSH PRN (02:20)
[2023-04-15] MEDS ORDERED: Take Home: Ondansetron 4 MG Tab.DIS, 5 Tab Pack PO ONE (02:35)
[2023-04-15 03:04] VITALS: BP 150/96; PULSE 72
== END 2023-04-15 03:00 | disposition home or self-care (01) ==
LOC: VM.ED 01:05
DX: N13.2 Hydronephrosis with renal and ureteral calculous obstruction (principal)
CPT/HCPCS: 36415; 74176; 80053; 81001; 85025; 86140; 99284; A9270; J1170; J2405; J7030; Q0162; 96361; 96374; 96375; 96376

== ENCOUNTER 2023-11-03 15:23 | Emergency (ER) | payer BC ==
[2023-11-03] MEDS ORDERED: Sodium Chloride 0.9% 10 ML Syringe FLUSH PRN (15:42)
[2023-11-03 15:47] LABS: APPEARANCE,URINE CLEAR (CLEAR); BILIRUBIN,URINE NEGATIVE (NEGATIVE); COLOR,URINE YELLOW (YELLOW); GLUCOSE,URINE NEGATIVE (NEGATIVE); KETONES,URINE NEGATIVE (NEGATIVE); LEUKOCYTE ESTERASE,URINE TRACE (NEGATIVE); NITRITE,URINE NEGATIVE (NEGATIVE); OCCULT BLOOD,URINE MODERATE (NEGATIVE); PH,URINE 6.5 (5.0-8.0); PROTEIN,URINE NEGATIVE (NEGATIVE); UROBILINOGEN,URINE 0.2 EU/dL (0.2)
[2023-11-03 15:48] LABS: BASOPHILS ABSOLUTE AUTO 0.1 x10^3/uL (0.0-0.2); BASOPHILS PERCENT AUTO 0.7 % (0.2-1.2); EOSINOPHILS ABSOLUTE AUTO 0.2 x10^3/uL (0.0-0.5); EOSINOPHILS PERCENT AUTO 1.9 % (0.0-4.0); HEMATOCRIT 42.8 % (40.0-52.0); HEMOGLOBIN 15.6 g/dL (14.0-18.0); IMMATURE GRAN ABSOLUTE AUTO 0.01 x10^3/uL (0.00-0.07); LYMPHOCYTES ABSOLUTE AUTO 1.8 x10^3/uL (1.0-4.8); LYMPHOCYTES PERCENT AUTO 21.8 % (25.0-50.0); MEAN CORPUSCULAR HEMOGLOBIN 35.1 pg (26.0-32.0); MEAN CORPUSCULAR HGB CONC 36.4 g/dL (32.0-36.0); MEAN CORPUSCULAR VOLUME 96.4 fL (78.0-93.0); MONOCYTES ABSOLUTE AUTO 0.7 x10^3/uL (0.0-0.8); MONOCYTES PERCENT AUTO 8.1 % (2.0-11.0); NEUTROPHILS ABSOLUTE AUTO 5.7 x10^3/uL (1.8-7.7); NEUTROPHILS PERCENT AUTO 67.4 % (50.0-80.0); PLATELET COUNT,PLT 206 x10^3/uL (130-400); RED BLOOD CELL COUNT 4.44 x10^6/uL (4.5-6.0); WHITE BLOOD CELL COUNT,WBC 8.4 x10^3/uL (4.0-10.0)
[2023-11-03 15:52] LABS: BACTERIA,URINE OCCASIONAL /HPF (NOT SEEN); SQUAMOUS EPITHELIAL CELLS,UR RARE /HPF (NOT SEEN); WBC,URINE 0-5 /HPF (NOT SEEN)
[2023-11-03 16:05] LABS: A/G RATIO 1.38; ALANINE AMINOTRANSFERASE,ALT 30 U/L (16-63); ALKALINE PHOSPHATASE 46 U/L (46-116); ASPARTATE AMNIOTRANSFERASE,AST 21 U/L (15-37); BILIRUBIN TOTAL 0.6 mg/dL (0.2-1.0); BLOOD UREA NITROGEN,BUN 14 mg/dL (7-18); CARBON DIOXIDE,CO2 28 mmol/L (21-32); CHLORIDE,CL 99 mmol/L (98-107); CREATININE 1.5 mg/dL (0.70-1.30); GLUCOSE RANDOM 116 mg/dL (70-99); LIPASE 57 U/L (19-71); POTASSIUM,K 3.3 mmol/L (3.5-5.1); PROTEIN TOTAL,TP 6.9 g/dL (6.4-8.2); SODIUM,NA 137 mmol/L (136-145)
[2023-11-03 16:07] LABS: ANION GAP 13.3 mmol/L (5-15); ESTIMATED GFR 59 mL/min (>=60)
[2023-11-03] MEDS: Ketorolac 30 MG/ML SDV IVPUSH ONE (16:09)
[2023-11-03] MEDS: Sodium Chloride 0.9% 1,000 ML IV ONE (16:09)
[2023-11-03] MEDS: Ondansetron 4 MG/2 ML SDV IVPUSH ONE (16:12)
[2023-11-03] MEDS: Take Home: Acetaminophen/oxyCODONE 325-5 MG, 5 Tab Pack PO ONE (16:30)
[2023-11-03] MEDS: HYDROmorphone 0.5 MG/0.5 ML Syringe IVPUSH ONE ×2 (16:30→16:54)
[2023-11-03] MEDS: Take Home: Ondansetron 4 MG Tab.DIS, 5 Tab Pack PO ONE (16:30)
[2023-11-03] MEDS: Tamsulosin 0.4 MG Cap.ER PO ONE (16:54)
[2023-11-03 18:27] VITALS: BP 166/101; PULSE 93
== END 2023-11-03 17:20 | disposition home or self-care (01) ==
LOC: VM.ED 15:23
DX: R10.9 Unspecified abdominal pain (principal); I10 Essential (primary) hypertension; Z87.442 Personal history of urinary calculi; Z79.899 Other long term (current) drug therapy
CPT/HCPCS: 80053; 81001; 83690; 85025; 96361; 96374; 96375; 99284; A9270; J1170; J1885; J2405; J7030; Q0162

== ENCOUNTER 2023-12-03 10:52 | Emergency (ER) | payer BC ==
[2023-12-03] MEDS ORDERED: Sodium Chloride 0.9% 10 ML Syringe FLUSH PRN (11:00)
[2023-12-03 11:10] LABS: BASOPHILS PERCENT AUTO 0.5 % (0.2-1.2); EOSINOPHILS ABSOLUTE AUTO 0.1 x10^3/uL (0.0-0.5); EOSINOPHILS PERCENT AUTO 2.2 % (0.0-4.0); HEMATOCRIT 44.5 % (40.0-52.0); HEMOGLOBIN 16.2 g/dL (14.0-18.0); IMMATURE GRAN ABSOLUTE AUTO 0.02 x10^3/uL (0.00-0.07); LYMPHOCYTES ABSOLUTE AUTO 1.8 x10^3/uL (1.0-4.8); LYMPHOCYTES PERCENT AUTO 28.7 % (25.0-50.0); MEAN CORPUSCULAR HEMOGLOBIN 34.4 pg (26.0-32.0); MEAN CORPUSCULAR HGB CONC 36.4 g/dL (32.0-36.0); MEAN CORPUSCULAR VOLUME 94.5 fL (78.0-93.0); MONOCYTES ABSOLUTE AUTO 0.5 x10^3/uL (0.0-0.8); MONOCYTES PERCENT AUTO 8.5 % (2.0-11.0); NEUTROPHILS ABSOLUTE AUTO 3.7 x10^3/uL (1.8-7.7); NEUTROPHILS PERCENT AUTO 59.8 % (50.0-80.0); PLATELET COUNT,PLT 190 x10^3/uL (130-400); RED BLOOD CELL COUNT 4.71 x10^6/uL (4.5-6.0); WHITE BLOOD CELL COUNT,WBC 6.2 x10^3/uL (4.0-10.0)
[2023-12-03] MEDS: Ketorolac 15 MG/ML SDV IVPUSH ONE (11:10)
[2023-12-03] MEDS: Lactated Ringers 1,000 ML IV ONE (11:10)
[2023-12-03] MEDS: Ondansetron 4 MG/2 ML SDV IVPUSH ONE (11:12)
[2023-12-03] MEDS: HYDROmorphone 1 MG/ML Syringe IVPUSH ONE (11:14)
[2023-12-03 11:23] LABS: APPEARANCE,URINE CLEAR (CLEAR); BILIRUBIN,URINE NEGATIVE (NEGATIVE); COLOR,URINE YELLOW (YELLOW); GLUCOSE,URINE NEGATIVE (NEGATIVE); KETONES,URINE NEGATIVE (NEGATIVE); LEUKOCYTE ESTERASE,URINE NEGATIVE (NEGATIVE); NITRITE,URINE NEGATIVE (NEGATIVE); OCCULT BLOOD,URINE MODERATE (NEGATIVE); PROTEIN,URINE NEGATIVE (NEGATIVE); UROBILINOGEN,URINE 0.2 EU/dL (0.2)
[2023-12-03 11:27] LABS: A/G RATIO 1.45; ALANINE AMINOTRANSFERASE,ALT 32 U/L (16-63); ALBUMIN 4.2 g/dL (3.4-5.0); ALKALINE PHOSPHATASE 51 U/L (46-116); ASPARTATE AMNIOTRANSFERASE,AST 22 U/L (15-37); BILIRUBIN TOTAL 0.7 mg/dL (0.2-1.0); BLOOD UREA NITROGEN,BUN 12 mg/dL (7-18); CALCIUM 9.3 mg/dL (8.5-10.1); CARBON DIOXIDE,CO2 27 mmol/L (21-32); CHLORIDE,CL 101 mmol/L (98-107); CREATININE 1.3 mg/dL (0.70-1.30); GLUCOSE RANDOM 91 mg/dL (70-99); POTASSIUM,K 3.9 mmol/L (3.5-5.1); PROTEIN TOTAL,TP 7.1 g/dL (6.4-8.2); SODIUM,NA 137 mmol/L (136-145)
[2023-12-03 11:28] LABS: ANION GAP 12.9 mmol/L (5-15); C-REACTIVE PROTEIN < 0.50 mg/dL (<=0.50); ESTIMATED GFR 69 mL/min (>=60)
[2023-12-03 11:30] LABS: BACTERIA,URINE NOT SEEN /HPF (NOT SEEN); MUCUS,URINE OCCASIONAL /LPF (NOT SEEN); RBC,URINE 40-50 /HPF (NOT SEEN); SQUAMOUS EPITHELIAL CELLS,UR NOT SEEN /HPF (NOT SEEN); WBC,URINE 0-5 /HPF (NOT SEEN)
[2023-12-03] MEDS: Tamsulosin 0.4 MG Cap.ER PO ONE (12:58)
[2023-12-03] MEDS: Take Home: Acetaminophen/HYDROcodone 325-10 MG, 5 Tab Pack PO ONE (12:58)
[2023-12-03] MEDS: HYDROmorphone 0.5 MG/0.5 ML Syringe IVPUSH ONE (12:58)
[2023-12-03 13:03] VITALS: BP 138/78; PULSE 77
== END 2023-12-03 13:10 | disposition home or self-care (01) ==
LOC: VM.ED 10:52
DX: N13.2 Hydronephrosis with renal and ureteral calculous obstruction (principal); I10 Essential (primary) hypertension; Z79.899 Other long term (current) drug therapy
CPT/HCPCS: 74176; 80053; 81001; 85025; 86140; 96361; 96374; 96375; 96376; 99284; 99284-25; A9270-GY; J1170; J1885; J2405; J7120

== ENCOUNTER 2024-02-17 05:05 | Emergency (ER) | payer BC ==
[2024-02-17] MEDS ORDERED: Sodium Chloride 0.9% 10 ML Syringe FLUSH PRN (05:07)
[2024-02-17 05:16] LABS: APPEARANCE,URINE CLEAR (CLEAR); BILIRUBIN,URINE NEGATIVE (NEGATIVE); COLOR,URINE YELLOW (YELLOW); GLUCOSE,URINE NEGATIVE (NEGATIVE); KETONES,URINE NEGATIVE (NEGATIVE); LEUKOCYTE ESTERASE,URINE NEGATIVE (NEGATIVE); NITRITE,URINE NEGATIVE (NEGATIVE); OCCULT BLOOD,URINE MODERATE (NEGATIVE); PROTEIN,URINE TRACE mg/dL (NEGATIVE); UROBILINOGEN,URINE 0.2 EU/dL (0.2)
[2024-02-17 05:18] LABS: BACTERIA,URINE OCCASIONAL /HPF (NOT SEEN); MUCUS,URINE OCCASIONAL /LPF (NOT SEEN); RBC,URINE 0-5 /HPF (NOT SEEN); WBC,URINE 0-5 /HPF (NOT SEEN)
[2024-02-17] MEDS: HYDROmorphone 1 MG/ML Syringe IVPUSH ONE (05:23)
[2024-02-17] MEDS: Ketorolac 15 MG/ML SDV IVPUSH ONE (05:24)
[2024-02-17] MEDS: Ondansetron 4 MG/2 ML SDV IVPUSH ONE (05:24)
[2024-02-17 05:27] LABS: BASOPHILS ABSOLUTE AUTO 0.1 x10^3/uL (0.0-0.2); BASOPHILS PERCENT AUTO 0.7 % (0.2-1.2); EOSINOPHILS ABSOLUTE AUTO 0.1 x10^3/uL (0.0-0.5); EOSINOPHILS PERCENT AUTO 2.1 % (0.0-4.0); HEMATOCRIT 47.7 % (40.0-52.0); HEMOGLOBIN 16.7 g/dL (14.0-18.0); IMMATURE GRAN ABSOLUTE AUTO 0.02 x10^3/uL (0.00-0.07); LYMPHOCYTES ABSOLUTE AUTO 2.3 x10^3/uL (1.0-4.8); LYMPHOCYTES PERCENT AUTO 33.6 % (25.0-50.0); MEAN CORPUSCULAR HEMOGLOBIN 34.5 pg (26.0-32.0); MEAN CORPUSCULAR VOLUME 98.6 fL (78.0-93.0); MONOCYTES ABSOLUTE AUTO 0.6 x10^3/uL (0.0-0.8); MONOCYTES PERCENT AUTO 8.4 % (2.0-11.0); NEUTROPHILS ABSOLUTE AUTO 3.7 x10^3/uL (1.8-7.7); NEUTROPHILS PERCENT AUTO 54.9 % (50.0-80.0); PLATELET COUNT,PLT 189 x10^3/uL (130-400); RED BLOOD CELL COUNT 4.84 x10^6/uL (4.5-6.0); WHITE BLOOD CELL COUNT,WBC 6.7 x10^3/uL (4.0-10.0)
[2024-02-17] MEDS: Lactated Ringers 1,000 ML IV ONE (05:30)
[2024-02-17 05:46] LABS: A/G RATIO 1.15; ALANINE AMINOTRANSFERASE,ALT 28 U/L (16-63); ALBUMIN 3.8 g/dL (3.4-5.0); ALKALINE PHOSPHATASE 43 U/L (46-116); ANION GAP 10.6 mmol/L (5-15); ASPARTATE AMNIOTRANSFERASE,AST 22 U/L (15-37); BILIRUBIN TOTAL 0.5 mg/dL (0.2-1.0); BLOOD UREA NITROGEN,BUN 14 mg/dL (7-18); C-REACTIVE PROTEIN < 0.50 mg/dL (<=0.50); CALCIUM 8.9 mg/dL (8.5-10.1); CARBON DIOXIDE,CO2 31 mmol/L (21-32); CHLORIDE,CL 104 mmol/L (98-107); CREATININE 1.4 mg/dL (0.70-1.30); ESTIMATED GFR 63 mL/min (>=60); GLUCOSE RANDOM 88 mg/dL (70-99); POTASSIUM,K 3.6 mmol/L (3.5-5.1); PROTEIN TOTAL,TP 7.1 g/dL (6.4-8.2); SODIUM,NA 142 mmol/L (136-145)
[2024-02-17 07:28] VITALS: BP 145/98; PULSE 76
[2024-02-17] MEDS: HYDROmorphone 0.5 MG/0.5 ML Syringe IVPUSH ONE (07:47)
[2024-02-17] MEDS: Tamsulosin 0.4 MG Cap.ER PO ONE (07:48)
[2024-02-17] MEDS: Take Home: Acetaminophen/HYDROcodone 325-5 MG, 5 Tab Pack PO ONE (07:48)
== END 2024-02-17 07:50 | disposition home or self-care (01) ==
LOC: VM.ED 05:05
DX: N13.2 Hydronephrosis with renal and ureteral calculous obstruction (principal); I10 Essential (primary) hypertension; Z79.899 Other long term (current) drug therapy
CPT/HCPCS: 74176; 80053; 81001; 85025; 86140; 96361; 96374; 96375; 96376; 99284; 99284-25; A9270-GY; J1171; J1885; J2405; J7120

== ENCOUNTER 2024-12-13 17:26 | Emergency (ER) | payer BC ==
[2024-12-13] MEDS ORDERED: Sodium Chloride 0.9% 10 ML Syringe FLUSH PRN (17:53)
[2024-12-13 18:04] LABS: BASOPHILS ABSOLUTE AUTO 0.1 x10^3/uL (0.0-0.2); BASOPHILS PERCENT AUTO 1.0 % (0.2-1.2); EOSINOPHILS ABSOLUTE AUTO 0.2 x10^3/uL (0.0-0.5); EOSINOPHILS PERCENT AUTO 4.3 % (0.0-4.0); IMMATURE GRAN ABSOLUTE AUTO 0.01 x10^3/uL (0.00-0.07); IMMATURE GRAN PERCENT AUTO 0.20 % (0.00-0.43); LYMPHOCYTES ABSOLUTE AUTO 1.9 x10^3/uL (1.0-4.8); LYMPHOCYTES PERCENT AUTO 38.7 % (25.0-50.0); MONOCYTES ABSOLUTE AUTO 0.4 x10^3/uL (0.0-0.8); MONOCYTES PERCENT AUTO 8.3 % (2.0-11.0); NEUTROPHILS ABSOLUTE AUTO 2.4 x10^3/uL (1.8-7.7); NEUTROPHILS PERCENT AUTO 47.5 % (50.0-80.0); PLATELET COUNT,PLT 200 x10^3/uL (130-400); RED BLOOD CELL COUNT 4.58 x10^6/uL (4.5-6.0); WHITE BLOOD CELL COUNT,WBC 4.9 x10^3/uL (4.0-10.0)
[2024-12-13 18:05] LABS: APPEARANCE,URINE CLOUDY (CLEAR); GLUCOSE,URINE NEGATIVE (NEGATIVE); OCCULT BLOOD,URINE LARGE (NEGATIVE)
[2024-12-13 18:15] LABS: SQUAMOUS EPITHELIAL CELLS,UR NOT SEEN /HPF (NOT SEEN)
[2024-12-13 18:25] LABS: A/G RATIO 1.40; ALANINE AMINOTRANSFERASE,ALT 39 U/L (16-63); ASPARTATE AMNIOTRANSFERASE,AST 41 U/L (15-37); BILIRUBIN TOTAL 0.6 mg/dL (0.2-1.0); BLOOD UREA NITROGEN,BUN 12 mg/dL (7-18); CARBON DIOXIDE,CO2 24 mmol/L (21-32); CHLORIDE,CL 105 mmol/L (98-107); CREATININE 1.4 mg/dL (0.70-1.30); GLUCOSE RANDOM 111 mg/dL (70-99); POTASSIUM,K 4.2 mmol/L (3.5-5.1); PROTEIN TOTAL,TP 7.2 g/dL (6.4-8.2); SODIUM,NA 143 mmol/L (136-145)
[2024-12-13 18:26] LABS: ESTIMATED GFR 63 mL/min (>=60)
[2024-12-13] MEDS: Ondansetron 4 MG/2 ML SDV IVPUSH ONE (18:29)
[2024-12-13] MEDS: Take Home: oxyCODONE HCl 5 MG Tab, 5 Tab Pack PO ONE (20:39)
[2024-12-13 20:51] VITALS: BP 136/93; PULSE 75
== END 2024-12-13 20:46 | disposition home or self-care (01) ==
LOC: VM.ED 17:26
DX: N13.2 Hydronephrosis with renal and ureteral calculous obstruction (principal); I10 Essential (primary) hypertension; Z79.899 Other long term (current) drug therapy
CPT/HCPCS: 74176; 80053; 81001; 85025; 96361; 96374; 96375; 96376; 99284; A9270; J1171; J2405; J7030

== ENCOUNTER 2024-12-27 18:51 | Emergency (ER) | payer BC ==
[2024-12-27] MEDS ORDERED: Sodium Chloride 0.9% 10 ML Syringe FLUSH PRN (19:08)
[2024-12-27] MEDS: Lactated Ringers 1,000 ML IV ONE (19:18)
[2024-12-27 19:19] LABS: BASOPHILS ABSOLUTE AUTO 0.1 x10^3/uL (0.0-0.2); BASOPHILS PERCENT AUTO 0.6 % (0.2-1.2); EOSINOPHILS ABSOLUTE AUTO 0.2 x10^3/uL (0.0-0.5); EOSINOPHILS PERCENT AUTO 2.3 % (0.0-4.0); IMMATURE GRAN ABSOLUTE AUTO 0.02 x10^3/uL (0.00-0.07); IMMATURE GRAN PERCENT AUTO 0.20 % (0.00-0.43); LYMPHOCYTES ABSOLUTE AUTO 2.1 x10^3/uL (1.0-4.8); LYMPHOCYTES PERCENT AUTO 24.2 % (25.0-50.0); MONOCYTES ABSOLUTE AUTO 0.6 x10^3/uL (0.0-0.8); MONOCYTES PERCENT AUTO 6.4 % (2.0-11.0); NEUTROPHILS ABSOLUTE AUTO 5.7 x10^3/uL (1.8-7.7); NEUTROPHILS PERCENT AUTO 66.3 % (50.0-80.0); PLATELET COUNT,PLT 201 x10^3/uL (130-400); RED BLOOD CELL COUNT 4.68 x10^6/uL (4.5-6.0); WHITE BLOOD CELL COUNT,WBC 8.6 x10^3/uL (4.0-10.0)
[2024-12-27 19:19] LABS: APPEARANCE,URINE CLEAR (CLEAR); GLUCOSE,URINE NEGATIVE (NEGATIVE); OCCULT BLOOD,URINE SMALL (NEGATIVE)
[2024-12-27] MEDS: Ondansetron 4 MG/2 ML SDV IVPUSH ONE (19:19)
[2024-12-27 19:31] LABS: BLOOD UREA NITROGEN,BUN 16 mg/dL (7-18); CARBON DIOXIDE,CO2 29 mmol/L (21-32); CHLORIDE,CL 100 mmol/L (98-107); CREATININE 1.5 mg/dL (0.70-1.30); ESTIMATED GFR 58 mL/min (>=60); GLUCOSE RANDOM 138 mg/dL (70-99); POTASSIUM,K 3.5 mmol/L (3.5-5.1); SODIUM,NA 139 mmol/L (136-145)
[2024-12-27 19:37] LABS: EPITHELIAL CELLS,URINE RARE
[2024-12-27] MEDS: Take Home: oxyCODONE HCl 5 MG Tab, 5 Tab Pack PO ONE (20:53)
[2024-12-27] MEDS: Take Home: Ondansetron 4 MG Tab.DIS, 5 Tab Pack PO ONE (20:53)
[2024-12-27 20:58] VITALS: BP 129/70; PULSE 82
== END 2024-12-27 20:10 | disposition home or self-care (01) ==
LOC: VM.ED 18:51
DX: N13.2 Hydronephrosis with renal and ureteral calculous obstruction (principal); R79.89 Other specified abnormal findings of blood chemistry; I10 Essential (primary) hypertension; Z79.899 Other long term (current) drug therapy
CPT/HCPCS: 74176; 80048; 81001; 85025; 96361; 96374; 96375; 96376; 99284; 99284-25; A9270-GY; J1171; J2405; J7120; Q0162

== ENCOUNTER 2025-01-09 15:32 | Emergency (ER) | payer BC ==
[2025-01-09] MEDS ORDERED: Sodium Chloride 0.9% 10 ML Syringe FLUSH PRN (15:55)
[2025-01-09 16:05] LABS: BASOPHILS ABSOLUTE AUTO 0.1 x10^3/uL (0.0-0.2); BASOPHILS PERCENT AUTO 0.8 % (0.2-1.2); EOSINOPHILS ABSOLUTE AUTO 0.2 x10^3/uL (0.0-0.5); EOSINOPHILS PERCENT AUTO 2.6 % (0.0-4.0); IMMATURE GRAN ABSOLUTE AUTO 0.01 x10^3/uL (0.00-0.07); IMMATURE GRAN PERCENT AUTO 0.10 % (0.00-0.43); LYMPHOCYTES ABSOLUTE AUTO 1.9 x10^3/uL (1.0-4.8); LYMPHOCYTES PERCENT AUTO 25.8 % (25.0-50.0); MONOCYTES ABSOLUTE AUTO 0.9 x10^3/uL (0.0-0.8); MONOCYTES PERCENT AUTO 11.9 % (2.0-11.0); NEUTROPHILS ABSOLUTE AUTO 4.4 x10^3/uL (1.8-7.7); NEUTROPHILS PERCENT AUTO 58.8 % (50.0-80.0); PLATELET COUNT,PLT 202 x10^3/uL (130-400); RED BLOOD CELL COUNT 4.65 x10^6/uL (4.5-6.0); WHITE BLOOD CELL COUNT,WBC 7.5 x10^3/uL (4.0-10.0)
[2025-01-09] MEDS: Ketorolac 15 MG/ML SDV IVPUSH ONE (16:07)
[2025-01-09] MEDS: Ondansetron 4 MG/2 ML SDV IVPUSH ONE (16:08)
[2025-01-09 16:12] LABS: APPEARANCE,URINE CLEAR (CLEAR); GLUCOSE,URINE NEGATIVE (NEGATIVE); OCCULT BLOOD,URINE MODERATE (NEGATIVE)
[2025-01-09 16:24] LABS: SQUAMOUS EPITHELIAL CELLS,UR RARE /HPF (NOT SEEN)
[2025-01-09 16:28] LABS: A/G RATIO 1.28; ALANINE AMINOTRANSFERASE,ALT 33.0 U/L (16-63); ASPARTATE AMNIOTRANSFERASE,AST 27.0 U/L (15-37); BILIRUBIN TOTAL 0.4 mg/dL (0.2-1.0); BLOOD UREA NITROGEN,BUN 14.0 mg/dL (7-18); CARBON DIOXIDE,CO2 28.0 mmol/L (21-32); CHLORIDE,CL 102.0 mmol/L (98-107); CREATININE 1.3 mg/dL (0.70-1.30); EST CRCL DRUG DOSING (CG) 91.79 mL/min; GLUCOSE RANDOM 89.0 mg/dL (70-99); POTASSIUM,K 3.8 mmol/L (3.5-5.1); PROTEIN TOTAL,TP 7.3 g/dL (6.4-8.2); SODIUM,NA 139.0 mmol/L (136-145)
[2025-01-09 16:29] LABS: ESTIMATED GFR 69.0 mL/min (>=60)
[2025-01-09 17:07] VITALS: BP 148/92; PULSE 74
[2025-01-09] MEDS: Take Home: Ketorolac 10 MG Tab, 4 Tab Pack PO ONE (17:14)
== END 2025-01-09 17:20 | disposition home or self-care (01) ==
LOC: VM.ED 15:32
DX: N13.2 Hydronephrosis with renal and ureteral calculous obstruction (principal); I10 Essential (primary) hypertension; Z79.899 Other long term (current) drug therapy
CPT/HCPCS: 74176; 80053; 81001; 85025; 96361; 96374; 96375; 99284; A9270; J1885; J2405; J7030; 36415